=== PATIENT | male | born 1945 | race Caucasian/White ===

== ENCOUNTER 2019-11-18 15:05 | Inpatient (IN) | payer OTHER, SELFPAY ==
[~2019-11-18] VITALS: Ht 160 cm; Wt 70.3 kg
[2019-11-18 15:47] LABS: microscopic required? NO
[2019-11-18 16:14] LABS: BASOPHIL % 0.3 % (0-2); PLATELET COUNT 117 x10^3mcL (130-400); RED CELL DISTRIBUTION WIDTH 13.7 % (11.5-14.5)
[2019-11-18 16:20] LABS: UA SPECIFIC GRAVITY <=1.005 (1.005-1.035); urine erythrocyte NEGATIVE (NEGATIVE)
[2019-11-18 16:33] LABS: CALCIUM 7.6 mg/dL (8.5-10.1); CARBON DIOXIDE 23.3 mmol/L (21-32); CHLORIDE SERUM 100 mmol/L (98-107); CREATININE SERUM 0.9 mg/dL (0.7-1.3); GLUCOSE SERUM 154 mg/dL (74-106); POTASSIUM SERUM 3.8 mmol/L (3.5-5.1); SODIUM SERUM 136 mmol/L (136-145)
[2019-11-18 16:38] LABS: ALKALINE PHOSPHATASE 55 U/L (46-116); ALT/SGPT 38 U/L (16-63); AST/SGOT 56 U/L (15-37); BILIRUBIN TOTAL 0.5 mg/dL (0.20-1.00); C REACTIVE PROTEIN 6.8 mg/dL (<=0.9); LACTIC DEHYDROGENASE (LDH) 282 U/L (100-190); TOTAL PROTEIN, SERUM 6.5 g/dL (6.4-8.2)
[2019-11-18] MEDS ORDERED: ATORVASTATIN CA40 M1 PO (17:36)
[2019-11-18] MEDS ORDERED: ASPIRIN CHILDRE81 MG PO (17:36)
--- NOTE | 2019-11-18 17:37 | NUR ---
PT BIB [facility] C/O SOB X 2DAYS THAT HAS WORSEND TODAY. PT STATES BREATHING BECOMES DIFFICULTY WITH ACTIVITY. AAOX4, RESP E/U. DENIES ANY N/V/D OR ANY OTEHR INJURY AT THIS TIME.
--- NOTE | 2019-11-18 17:41 | NUR ---
REPORT GIVEN TO TREE SERRATO TO ASSUME CARE.
--- NOTE | 2019-11-18 17:55 | NUR ---
RECEIVED PT FROM ED VIA [facility], CAME IN DUE TO SOB X3 DAYS. PT IS AAOX4. DENIES HEADACHE/DIZZINESS. ABLE TO FOLLOW COMMANDS. STATED THAT HE HAS MILD SOB, W/ PRODUCTIVE COUGH X3 DAYS BUT WAS NOT SURE FOR THE COLOR OF THE PHLEGM, LUNG SOUNDS DIMINISHED ON THE BASES. O2 BWV=914% ON 2LPM/NC. DENIES CHEST PAIN/RPESSURE,SR W/ MILD ST ELEVATION. DENIES ABDOMINAL DISCOMFORT. PULSES ARE PALPABLE. NO EDEMA. IV SITES ON THE RAC AND LAC ARE PATENT AND INTACT. RECEIVED PT FROM ED, PT WAS WEARING A MASK, PLACED ON DROPLET/CONTACT ISOLATION ON ARRIVAL, AND ZITHROMAX INFUSING. SIDE RAILS UPX2. CALL LIGHT ON REACH. PRIMARY NURSE TREE AT BEDSIDE FOR CONTINUITY OF CARE
[2019-11-18 18:10] VITALS: BP 101/66
[2019-11-18 18:19] VITALS: BP 102/61
[2019-11-18 18:29] VITALS: Ht 160 cm; Wt 70.3 kg
--- NOTE | 2019-11-18 18:41 | NUR ---
NO ACUTE CHANGES AT THIS TIME, VS STABLE, BREATHING EVEN AND UNLABORED ON 2L NC/ NO ACUTE RESP DISTRESS OR SOB NOTED. DENIES ANY CP OR PRESSURE. WILL ENDORSE TO INCOMING RN.
--- NOTE | 2019-11-18 20:00 | NUR ---
PATIENT AWAKE, ALERT, ORIENTED X4, RESTING IN BED. RESPIRATION EVEN AND UNLABORED, OCCASIONAL COUGHING NOTED, ON O2 2L PER NASAL CANNULA. SALINE LOCK TO R ANTECUBITAL AND L ANTECUBITAL AREA. NO GI DISCOMFORT NOTED, LBM 11/18/19. VOIDING FREELY WITHOUT DIFFICULTY. MOVES ALL EXTREMITIES FREELY. SKIN DRY AND INTACT. DENIES DISCOMFORT/PAIN. ON DROPLET AND CONTACT PRECAUTION. SHACKLES ON THE R LEG. DEPUTY AT THE BEDSIDE. ON TELE #7. WILL CONTINUE TO MONITOR.
[2019-11-18 21:41] VITALS: BP 117/60
[2019-11-19 06:00] VITALS: BP 110/80
--- NOTE | 2019-11-19 06:09 | NUR ---
PATIENT RESTING IN BED, RESPIRATION EVEN AND UNLABORED, ON ROOM AIR. SALINE LOCK TO R ANTECUBITAL AREA AND L ANTECUBITAL AREA PATENT AND INTACT. DENIES DISCOMFORT/PAIN. ON DROPLET AND CONTACT ISOLATION. ASSISTED WITH NEEDS. SAFETY OBSERVED. PLACED BED IN THE LOWEST POSITION.
[2019-11-19 06:55] LABS: BASOPHIL % 0.6 % (0-2); RED CELL DISTRIBUTION WIDTH 14.4 % (11.5-14.5)
[2019-11-19 07:09] LABS: PLATELET COUNT 105 x10^3mcL (130-400)
[2019-11-19 07:18] LABS: CARBON DIOXIDE 29.8 mmol/L (21-32); CHLORIDE SERUM 104 mmol/L (98-107); CREATININE SERUM 0.9 mg/dL (0.7-1.3); GLUCOSE SERUM 105 mg/dL (74-106); SODIUM SERUM 137 mmol/L (136-145)
--- NOTE | 2019-11-19 08:08 | NUR ---
0715: REPORT TAKEN FROM ACCOUNT SERVICE ASSOCIATE NURSE, PATIENT FOUND TO BE AWAKE AND ALERT, ORIENTED X 4, GIVEN BREAKFAST AT THIS TIME AND VITALS ASSESSED, LUBNA REPORTS MILD SOB, AND TROUBLE TAKING DEEP BREATHS, ON 2 LITERS O2 VIA NC, WILL CONTINUE TO MONITOR.
[2019-11-19 08:12] VITALS: BP 111/70
[2019-11-19 11:50] VITALS: BP 117/68
--- NOTE | 2019-11-19 12:12 | NUR ---
PATIENT SIGNED CONSENT FOR PLASMA TRANSFUSION AND PAPERWORK ADDED TO CHART, I WITNESSED THE SIGNING OF THE CONSENT
--- NOTE | 2019-11-19 12:56 | NUR ---
PATIENT CHAINS MOVED FROM ANKLE TO BED, TO ANKLE TO ANKLE SO PATIENT MAY USE THE RESTROOM. PATIENT ABLE TO AMBULATE TO THE RESTROOM AND BACK TO BED, EATING LUNCH AT THIS TIME. PATIENT FOUND TO DESAT TO 86 ON ROOM AIR, STARTED BACK ON 2 LITERS NC AND SAT 98%, WILL CONTINUE TO MONITOR
[2019-11-19 16:50] VITALS: BP 116/68
[2019-11-19 21:00] VITALS: BP 108/67
--- NOTE | 2019-11-19 21:00 | NUR ---
PT IS RECIEVED FROM DAY NURSE. PT RESTING IN BED AT THIS TIME. REPORTED HEADACHE PAIN WILL ADMINISTER PRN PAIN MED. A/O X4, CALM AND COOPERATIVE AT THIS TIME. TELE 7, BRADYCARDIC, PT DENIES CP AND PALPITATIONS. PT DENIES SOB, BREATHING E/U ON 2L NC. CUFFS ON BOTH FEET SKIN UNDER CUFFS ARE CLEAN AND INTACT. PT ABLE TO AMBULATE AND REPOSITION SELF. IV TO RIGHT/LEFT AC PATENT, CLEAN, DRY, INTACT. PT ON CONTACT/DROPLET ISOLATION FOR POSITIVE COVID. BED AT LOWEST POSITION. CALL LIGHT WITHIN REACH. WILL CONTINUE TO MONITOR.
--- NOTE | 2019-11-19 22:04 | NUR ---
PT TRANSFERRED FROM [address] [place] [address], ENDORSED BY VELMA SERRATO. PT IS RESTING IN BED. PT IS ALERT, EYES OPEN SPONTANEOUSLY, UNABLE TO FOLLOW COMMAND. MEDSURG. NO IV ACCESS WILL ATTMEMPT TO START NEW IV. DENIES PAIN OR DISCOMFORT. PAPABLE PULSES, NO EDEMA NOTED. ABD SOFT AND ROUND. GENERALIZED WEAKNESS. LUNGS SOUNDS DIMINISHED BILATERALLY. NORMAL S1 AND S2 SOUNDS. PT NEEDS ASSISTANCE TO RESPOSITION SELF. SIITER 1:1 PRESENT. PT HAS ECHYMOSIS ON BUE AND A WOUND ON THE R LE. BED AT LOWEST POSITION. CALL LIGHT WITHIN REACH WILL CONTINUE TO MONITOR.
--- NOTE | 2019-11-20 00:05 | NUR ---
PT RESTING IN BED AT THIS TIME. DENIES PAIN AND DISCOMFORT, BREATHING E/U ON RMA, NO S/S OF DISTRESS AT THIS TIME. ALL NEEDS AND CONCERNS ADDRESSED AT THIS TIME. CALL LIGHT WITHIN REACH.
[2019-11-20 06:46] LABS: BASOPHIL % 0.5 % (0-2); RED CELL DISTRIBUTION WIDTH 14.3 % (11.5-14.5)
[2019-11-20 06:56] VITALS: BP 104/65
[2019-11-20 06:59] LABS: PLATELET COUNT 99 x10^3mcL (130-400)
--- NOTE | 2019-11-20 07:03 | NUR ---
PT RESTIN IN BED AT THIS TIME. DENIES PAIN AND DISCOMFORT, BREATHING E/U ON RMA, NO S/S OF ACUTE DISTRESS AT THIS TIME. ALL NEEDS AND CONCERNS ADDRESSED THIS SHIFT. CALL LIGHT WITHIN REACH. WILL ENDORSE TO DAY NURSE.
[2019-11-20 07:05] LABS: CALCIUM 8.6 mg/dL (8.5-10.1); CARBON DIOXIDE 27.8 mmol/L (21-32); CHLORIDE SERUM 101 mmol/L (98-107); CREATININE SERUM 0.8 mg/dL (0.7-1.3); GLUCOSE SERUM 118 mg/dL (74-106); POTASSIUM SERUM 3.5 mmol/L (3.5-5.1); SODIUM SERUM 135 mmol/L (136-145)
[2019-11-20 07:45] VITALS: BP 128/74
--- NOTE | 2019-11-20 07:45 | NUR ---
PATIENT C/O GENERALIZED BODY ACHES, ADMINISTERED PRN TYLENOL 625MG PER ORDER IN EMAR
--- NOTE | 2019-11-20 07:45 | NUR ---
RECEIVED PATIENT FROM NIGHT NURSE, ALERT AND ORIENTED X 4, C/O PAIN /10 'ALL OVER", LUNG SOUNDS CLEAR ON LPM O2 VIA NC, SALINE LOCK IN PLACE TO R AND L AC IN TACT, PATIENT CAN AMBULATE INDEPENDENTLY, BOWEL SOUNDS ACTIVE, TELEMTRY LEADS IN PLACE, DENIES CHEST PAIN, SINUS AUGUSTUS 50 BPM, SKIN INTACT, CONTINENT OF BOWEL AND BLADDER, PEDAL PULSES EQUAL AND WEAK, NO EDEMA NOTED, PATIENT PLEASANT AND COOPERATIVE
[2019-11-20 07:53] LABS: ALKALINE PHOSPHATASE 67 U/L (46-116); ALT/SGPT 44 U/L (16-63); AST/SGOT 54 U/L (15-37); BILIRUBIN TOTAL 0.45 mg/dL (0.20-1.00); C REACTIVE PROTEIN 6.4 mg/dL (<=0.9); CALCIUM 8.6 mg/dL (8.5-10.1); CARBON DIOXIDE 25.4 mmol/L (21-32); CHLORIDE SERUM 101 mmol/L (98-107); CREATININE SERUM 0.8 mg/dL (0.7-1.3); GLUCOSE SERUM 115 mg/dL (74-106); POTASSIUM SERUM 3.6 mmol/L (3.5-5.1); SODIUM SERUM 136 mmol/L (136-145); TOTAL PROTEIN, SERUM 6.3 g/dL (6.4-8.2)
[2019-11-20 08:23] LABS: ALBUMIN 2.7 g/dL (3.4-5.0)
[2019-11-20 12:30] VITALS: BP 109/68
--- NOTE | 2019-11-20 17:30 | NUR ---
PATIENT TEMP 101.0 C/O HEADACHE 11/29, INITIATED COOLING MEASURES AND ADMINISTERED PRN TYLENOL, WILL MONITOR PATIENT
--- NOTE | 2019-11-20 18:11 | NUR ---
PATIENT RESTING COMFORTABLY IN BED, NO COMPLAINT OF DISTRESS OR DISCOMFORT AT THIS TIME, WILL ENDORSE CARE TO PM NURSE
[2019-11-20 18:13] VITALS: BP 110/78
[2019-11-20 21:50] VITALS: BP 107/64
--- NOTE | 2019-11-20 21:50 | NUR ---
PT IS A/O x4. TELE #7, SB HR IN LOW 50S. DENIES ANY CHEST PAIN OR PRESSURE. PT C/O SAINI, TYLENOL GIVEN PER EMAR. PULSES ARE PRSENT. NO EDEMA NOTED. LUNGS CLEAR IN ALL FEILDS. ON 2L NC. DENIES ANY SOB AT THIS TIME. EQUAL CHEST RISE AND FALL. NO SIGN OF RESP DISTRESS. BOWEL SOUNDS ARE PRESENT x4. VOIDS FREELY. SKIN WARM AND INTACT. CUFF ON R ANKLE TO BED. PT IS CIM, GUARD PRESENT. SALINE LOCKED ON LAC AND RAC. INTACT AND CLEAN. BED IS AT LOWEST SETTING. CALL LIGHT WITHIN REACH. PT ON CONTACT/DROPLET ISO FOR COVID POSITIVE. WILL CONTINUE TO MONTIOR.
--- NOTE | 2019-11-21 02:06 | NUR ---
SPOKE WITH PT. PT DENIES ANY DISTRESS. DENIES ANY PAIN. CALL LIGHT WITHIN REACH. WILL CONTINUE TO MONTIOR.
[2019-11-21 06:39] VITALS: BP 111/65
--- NOTE | 2019-11-21 06:40 | NUR ---
PT WAS HAVING A COUGHING SPELL. SPO2 DOWN TO 76% ON 2L NC. PT WAS SAT UP IN HIGH FOLWERS AND O2 WAS INCREASED TO 5L NC. PT DENIES ANY SOB. STATES HE FEELS OK. RT WAS CALLED FOR A TREATMENT. WHILE WAITING FOR RT PT SPO2 INCREASED TO 85% ON RA. TREATMENT WAS GIVEN AND PT ON 4L NC SPO2 AT 90%. LEFT SITTING UP. PT DENIES ANY SOB. STATES HE IS FEELING FINE. NO SIGN OF RESP DISTRESS NOTED. PT STILL COUGHING. RT STATES PT IS STABLE AT THIS TIME. SPO2 DROPS PER COUGHING. PT IN NO DISTRESS. BED AT LOWEST SETTING. CALL LIGHT WITHINR REACH. WILL ENDORSE TO AM NURSE.
--- NOTE | 2019-11-21 07:20 | NUR ---
RECEIVED PT SITTING UP IN BED AAOX4, ABLE TO FOLLOW SIMPLE COMMANDS. IN NO ACUTE DISTRESS. DENIES PAIN OR DISCOMFORT AT THIS TIME. IV SITE TO LEFT AND RIGHT AC INTACT SALINE LOCK. 94% 02SAT AT 4LPM. SCD IN PLACE. BED IN LOWEST POSITION. CALL LIGHT WITHIN REACH. ADRESSED ALL QUESTIONS. WILL CONTINUE TO MONITOR
[2019-11-21 10:00] VITALS: BP 115/62
--- NOTE | 2019-11-21 12:30 | NUR ---
PT IN BED, AWAKE, IN NO ACUTE DISTRESS. CIM STAFF PRESENT. C/O HEADACHE AND NOTED WITH 99.9 TEMEPERATURE ORALLY. MEDICATED WITH TYLENOL ORDERED. ON 4LPM OXYGEN VIA NC 94% SAT. EPISODES OF DESATURATION TO 80-84% DURING MEALS, INSTRUCTED TO TAKE FREQUENT BREAKS IN BETWEEN. NO S/S OF RESPIRATORY DISTRESS. ALL NEEDS ATTENDED TO. CALL LIGHT WITHIN REACH. WILL CONTINUE TO MONITOR. ON CONTACT/DROPLET ISOLATION FOR POSITIVE COVID-19
[2019-11-21 18:06] VITALS: BP 95/56
--- NOTE | 2019-11-21 20:00 | NUR ---
RECEIVED PT IN BED, RESTING , A/O X4. DENIES HEADACHE/DIZZINESS. RESP. EVEN AND UNLABORED, 02 AT 4L/MIN VIA NC, SAT. 92% AT THIS TIME, DESATS AT TIMES . ON RT PROTOCOL. DENIES SOB. SB ON THE MONITOR. DENIES CP OR ANY DISCOMFORT AT THIS TIME. HL X2, INTACT AND PATENT. INSTRUCTED TO MAINTAIN PRONE POSITION WHEN RESTING. CALL LIGHT WITHIN REACH. WILL CONTINUE TO MONITOR.
--- NOTE | 2019-11-21 20:37 | NUR ---
GUARDS PRESENT. REMAINS ON DROPLET/CONTACT ISOLATION.WILL CONTINUE TO MONITOR.
[2019-11-21 21:01] VITALS: BP 123/70
--- NOTE | 2019-11-22 02:24 | NUR ---
DESAT. TO 65% ON 02 AT 4L/MIN VIA NC, RESP. TREATMENT GIVEN BY RT, 02 INCREASED TO 6L/MIN, SAT. 94% AT THIS TIME. INSTRUCTED TO MAINTAIN PRONE POSITION. WILL COONTINUE TO MONITOR.
[2019-11-22 05:54] VITALS: BP 112/70
--- NOTE | 2019-11-22 06:09 | NUR ---
SLEPT WELL. OCCA. NON PRODUCTIVE COUGH NOTED. [address], DENIES SOB AT THIS TIME. RESP. EVEN AND UNLABORED. NO ACUTE DISTRESS NOTED. TEMP. 99.6 AT THIS TIME. NO COMPLAINTS NOTED. WILL CONTINUE TO MONITOR.
[2019-11-22 07:28] LABS: BASOPHIL % 0.1 % (0-2); PLATELET COUNT 157 x10^3mcL (130-400)
--- NOTE | 2019-11-22 07:30 | NUR ---
PT ENDORSE TO ME THIS MORNING, LAYING IN BED RESTING/ AA/O X4, REMAINS ON ISOLATION. BREATHING EVEN AND UNLABORED ON 6L NC SATING AT 93% NO ACUTE RESP DISTRESS OR SOB NOTED. TELE 7 SB, HR 55 /DENIES ANY CP OR PRESSURE. BOWEL SOUNDS ACTIVE IN ALL FOUR QUADS/ VOIDS FREELY. GEN WEAKNESS/AMB CIM PT/ RAC INTACT AND PATENT/ HEPLOCKED. CALL LIGHT IN REACH /BED IN LOW POSITION / WILL CONTINUE TO MONITOR.
[2019-11-22 07:56] LABS: CARBON DIOXIDE 32.1 mmol/L (21-32); CHLORIDE SERUM 100 mmol/L (98-107); GLUCOSE SERUM 132 mg/dL (74-106); POTASSIUM SERUM 4.3 mmol/L (3.5-5.1); SODIUM SERUM 138 mmol/L (136-145)
--- NOTE | 2019-11-22 09:20 | NUR ---
PT C/O CHEST PRESSURE AND BACK PAIN 5/10, MEDICATED PER EMAR. WILL CONTINUE TO MONITOR.
[2019-11-22 09:21] VITALS: BP 105/82
--- NOTE | 2019-11-22 12:47 | NUR ---
CALLED PHARMACY AND SPOKE TO PRAKASH REGRADING REMDESIVIR 200MG/ STATED THEY ARE OUT OF MEDICATION AND HAS NOT BEEN FDA APPROVED. PER PRAKASH YAN.
[2019-11-22 13:01] VITALS: BP 104/67
--- NOTE | 2019-11-22 16:34 | NUR ---
PT TOLERATED 100% OF LUNCH/ DENIES ANY CP OR PRESSURE OR SOB= SATING AT 93-94% WILL CONTINUE TO MONITOR.
--- NOTE | 2019-11-22 18:15 | NUR ---
RECEIVED CALL FROM AMA SHERIDAN STATING PT IS DESATURATING. PT'S SPO2:81% SO PLACED PT ON 12 OXYMIZER. SPO2:91%, RR:26. ADVISED PT TO TAKE DEEP BREATHS. SPO2:92%. PT STATES RELIEF. WILL ENDORSE CARE TO NOC SHIFT.
[2019-11-22 18:17] VITALS: BP 121/64
--- NOTE | 2019-11-22 18:18 | NUR ---
VS 121/64 RESP 26, HR 62 PT SATING AT 83 % ON NC 6L = CALLED RT AND CHANGED PT TO OXYMIZER 12L SATING BETWEEN 90-92% WILL CONTINUE TO MONITOR.
--- NOTE | 2019-11-22 18:27 | NUR ---
NO ACUTE CHANGES AT THIS TIME, NO ACUTE RESP DISTRESS OR SOB NOTED/ REMIANS ON 12L OXYMIZER SATING AT 91-92%. DENIES ANY CP OR PRESSURE. CIM OFFICERS BY DOOR. IV TO THE RAC INTACT AND PATENT/ HEPLOCKED. WILL ENDORSE TO INCOMING RN.
--- NOTE | 2019-11-22 19:24 | NUR ---
RECEIVED PT FROM PREVIOUS SHIFT. GUARDS PRESENT. PT A/OX4. NSR ON TELE. O2 SAT 92% ON 12L OXYMIZER. DENIES PAIN. DENIES SOB. IV TO RAC PATENT. CALL LIGHT WITHIN REACH, BED IN LOW POSITION. WILL CONTINUE TO MONITOR.
--- NOTE | 2019-11-23 00:15 | NUR ---
PT RESTING IN NO ACUTE DISTRESS. RR ALONZO/UNLABORED. CALL LIGHT WITHIN REACH, BED IN LOW POSITION. WILL CONTINUE TO MONITOR.
--- NOTE | 2019-11-23 01:01 | NUR ---
PATIENT DESAT TO 85% ON 12 L/M OXYMIZER. GAVE 2 PUFFS PRN ALB MDI AND PLACED ON NONREBREATHER, SPO2 INCREASED TO 92%
[2019-11-23 05:16] VITALS: BP 111/81
--- NOTE | 2019-11-23 07:27 | NUR ---
PT ENDORSE TO ME THIS MORNING AA/OX4/ REMAINS ON ISOLATION. BREATHING EVEN AND UNLABORED ON NRB 15L DENIES SOB OR CP. TELE 7 SB NOTED. BOWEL SOUNDS ACTIVE IN ALL FOUR QUADS. VOIDS FREELY/ URINAL AT BEDSIDE,AMB. IV TO THE RAC INTACT AND PATENT / NO REDNESS OR SWELLING NOTED. WILL CONTINUE TO MONITOR. CIM PATIENT.
[2019-11-23 09:32] VITALS: BP 115/69
--- NOTE | 2019-11-23 11:15 | NUR ---
PT ON 12L OXYMIZER AND IN PRONED POSITION. TOLERATING WELL AND STATES RELIEF. SPO2:92%. WILL CONT.TO MONITOR
--- NOTE | 2019-11-23 12:33 | NUR ---
PT REMAINS ON OXYMIZER AT 12 L SATING AT 95% IN A PRONE POSITION. WILL CONTINUE TO MONITOR.
[2019-11-23 13:16] VITALS: BP 103/62
[2019-11-23 15:04] VITALS: BP 103/62
[2019-11-23 17:40] VITALS: BP 106/64
--- NOTE | 2019-11-23 17:57 | NUR ---
NO ACUTE RESP DISTRESS OR SOB NOTED/ REMAINS ON OXYMIZER 12L SATING AT 91-96 IN PRONE POSITION. DENIES ANY CP OR PRESSURE OR DISCOMFORT. IV TO THE RAC INTACT AND PATENT/ HEPLOCKED / NO REDNESS OR SWELLING NOTED. WILL ENDORSE TO INCOMING RN.
--- NOTE | 2019-11-23 19:58 | NUR ---
RECEIVED PT FROM PREVIOUS SHIFT. PT A/OX4. DENIES PAIN. DENIES SOB ON 12L OXYMIZER. PT LAYING PRONE IN BED. IV PATENT. CALL LIGHT WITHIN REACH. GUARDS PRESENT OUTSIDE OF ROOM. CALL LIGHT WITHIN REACH, BED IN LOW POSITION. WILL CONTINUE TO MONITOR.
--- NOTE | 2019-11-23 23:01 | NUR ---
O2 SAT IN LOW 70'S. PT DENIES SOB. PT REPOSITIONED AND GIVEN BREATHING TREATMENT VIA MDI BY RT. O2 SAT INCREASED TO 90%. WILL CONTINUE TO MONITOR.
--- NOTE | 2019-11-24 01:05 | NUR ---
PT C/O 01/29 SAINI. TYLENOL PROVIDED PER EMAR
--- NOTE | 2019-11-24 03:42 | NUR ---
PT RESTING IN NO ACUTE DISTRESS. RR EVEN AND UNLABORED. CALL LIGHT WITHIN REACH, BED IN LOW POSITION. WILL CONTINUE TO MONITOR.
[2019-11-24 05:51] VITALS: BP 105/63
[2019-11-24 07:07] LABS: BASOPHIL % 0.1 % (0-2); PLATELET COUNT 199 x10^3mcL (130-400); RED CELL DISTRIBUTION WIDTH 13.7 % (11.5-14.5)
[2019-11-24 07:30] LABS: CALCIUM 8.8 mg/dL (8.5-10.1); CHLORIDE SERUM 98 mmol/L (98-107); CREATININE SERUM 0.9 mg/dL (0.7-1.3); GLUCOSE SERUM 127 mg/dL (74-106); SODIUM SERUM 135 mmol/L (136-145)
[2019-11-24 07:38] LABS: C REACTIVE PROTEIN 5.6 mg/dL (<=0.9)
[2019-11-24 08:15] VITALS: BP 102/64
--- NOTE | 2019-11-24 10:05 | NUR ---
AT 0710 - RECEIVED PATIENT FROM NIGHT NURSE. PATIENT IN ISOLATION ROOM FOR COVID-19. MONITOR SHOWING SINUS RHYTHM; RATE 60'S. O2 SAT 92%. 2 CORRECTIONAL OFFICERS OUTSIDE OF PATIENT'S ROOM. AT 0810 - PATIENT AWAKE, ALERT AND ORIENTED X 4. HAS BEEN IN PRONE POSITION, NOW SELF-POSITIONED ON LEFT SIDE. PATIENT IS ON 12 L OXYMIZER. TECHYPNIC WITH RR 36. DESATS QUICKLY TO LOW 80'S WHEN NOT IN PRONE POSITION, HOWEVER O2 SAT RETURNS QUICKLY TO 90% UPON CHANGE OF POSITION TO PRONE. BP WNL. AFEBRILE. AT 0837 - MEDICATED WITH TYLANOL FOR C/O HEADACHE. PATIENT ASSISTED WITH BREAKFAST. WAS ABLE TO TAKE 40% OF FOOD FROM BREAKFAST TRAY. AGAIN POSTIONED IN PRONE POSITION. AT 0935 - PATIENT'S O2 SAT DROPPED TO 71% DURING PATIENT'S USE OF URINAL TO VOID. RETURNED QUICKLY TO 90% WITHIN 2 MIN OF PATIENT BEING IN PRONE POSITION. MADE COMFORTABLE.
[2019-11-24 12:39] VITALS: BP 94/65
--- NOTE | 2019-11-24 13:19 | NUR ---
AT 1235 - PATIENT SITTING UP INB ED; SAYS THAT HE HAS BEEN IN THAT POSITION FOR LAST 30 MIN. O2 SAT 90% AT 1255 - WHILE EATING LUNCH; O2 SAT DROPPED TO 84%. PATIENT INSTRUCTED TO RETURN TO PRONE POSITION. O2 SAT RETURNED TO 90'S AT 1315 - O2 SAT MAINTAINED AT 96%
[2019-11-24 15:15] VITALS: BP 105/68
--- NOTE | 2019-11-24 15:16 | NUR ---
1. Recommend continue NA2G diet
--- NOTE | 2019-11-24 15:16 | NUR ---
Initial Nutrition Assessment: 232T/B DIONNE SHERMAN 74M MR SHYAM Dx: PNA, COVID r/o PMHx: Afib, HTN PSHx: none Labs: (11/23) Na 135L, Glu 127H, (11/19) AST 54H Meds: Lovenox, Pepcid PRN meds: Phenergan, Tylenol, ventolin Diet: NA2G PO intake since admission: 2 nutrition flowsheet entry of 100% with average PO intake of 100%. (Approximately 2288kcal, and 112g protein). Ht: 160.02cm/63in Wt: 70.335kg/154.7lbs BMI: 27.5 Bed scale: not able to obtain IBW: 56.36kg/124lbs %IBW: 125% ABW: 60kg UBW: not able to obtain Age: 74 Food Allergies: not able to obtain Edema: no edema noted Last BM: 11/22 Skin: intact Yosi: 18 Per H and P (11/17), Pt is a 74 y/o male with h/o HTN, Arrhythmia [facility] resident with a possible exposure to COVID 19 presented to the ED with cough, SOB, and fever for last 2 days. He was seen at the ED was having fever and in aflutter then resolved. Multiple work ups done, he was hypoxic and was admitted to tele. Pt was admitted with dx: Hypoxia, Respiratory failure, PNA, COVID 19, Aflutter, HTN RD Note (11/23) Per RN reassessment note (11/23), pt was able to eat small amounts of food. RD tried to reach pt via his phone, but pt did not respond. Per pt's RN, pt had good appetite, but it was challenging for pt to eat because pt's oxygen level decreased whenever he sat up and eat, so pt needed to eat very quickly. Otherwise pt had good appetite with no GI distress and chewing/swallowing difficulties. Additionally, RN also reported no BM today. Problem with: N/V/D/C: none per RN Problems with: Chewing: Swallowing: None per RN Current appetite: good per RN, but needed to eat quickly Recent wt change: not able to obtain %wt change: not able to obtain Height: not able to obtain Vitamin/Supplement use: not able to obtain Special diet at home: not able to obtain Physical activity: not able to obtain Nutrition education given (specify specific nutrition education and handout given): n/a Food-drug interactions? Education given? n/a Estimated Nutritional Needs Based on adjusted body weight (60kg) Energy: 0133-9249 kcal/day (30-35 kcal/kg for viral infection) Protein: 90-120 g/day (1.5-2 g/kg for viral infection) Fluid: 0458-3084 mL/day (1 mL/kcal) or per MD d/t Pulmonary edema Nutrition Diagnosis: 1. Increased energy and protein needs r/t hypermetabolic state a/e/b pt has viral infection. Intervention 1. Recommend continue NA2G diet Monitor/Evaluate Goal: PO intake at least 75% of estimated needs Monitor: PO intake, Labs, GI function, Body weight, Diet tolerance F/U in 3-5 days as moderate risk 11/26-
--- NOTE | 2019-11-24 15:40 | NUR ---
TEMP 103.0 GIVEN TYLANOL PER EMAR. COOLING MEASURES INCLUDING ICE PACKS TO AXILLAE IMPLEMENTED. DR LION NOTIFIED. HE WILL BE IN TO SEE PATIENT. PATIENT IS IN PRONE POSITION. O2 SAT 88-91%
--- NOTE | 2019-11-24 17:04 | NUR ---
CALLED RT TO REVIEW PATIENT O2 SAT 82-86%. PATIENT WAS LYING ON HIS SIDE. ENCOURAGED TO LIE PRONE AGAIN. RT WILL GIVEN PATIENT INHALER TREATMENT AND CONSIDER MASK.
[2019-11-24 17:50] VITALS: BP 108/68
--- NOTE | 2019-11-24 18:41 | NUR ---
AT 1740 - AFTER RECEIVING INHALER TREATMENT AND LYING PRONE, PATIENT'S O2 SAT CAME UP TO 95%. REMAINS TECHYPNIC BUT DENIES ANY SHORTNESS OF BREATH. REMAINS ON OXYMIZER AT 12 L/MIN. PATIENT SAT UP IN BED FOR DINNER. APPETITE APPEARS [facility]. PATIENT'S O2 SAT DROPS TO 86% WHEN SITTING UP IN BED. PATIENT ENCOURAGED TO PRONE AFTER EATING. C/O HEADACHE. LAST TEMP READING 99.3. NOT YET DUE FOR TYLANOL. AT 1845 - O2 SAT NOW 94%. PATIENT AWAKE, ALERT AND ORIENTED. VOIDING IN URINAL. WILL ENDORSE CARE TO NIGHT NURSE.
[2019-11-24 19:30] VITALS: BP 94/73
--- NOTE | 2019-11-24 19:30 | NUR ---
PT RECIEVED FROM DAY NURSE. PT RESTING IN BED AT THIS TIME. R LEG SHACKLED TO BED AT THIS TIME. PT A/O X4, CALM AND COOPERATIVE. TELE 7, SINUS AUGUSTUS. DENIES CP, NV, DIZZINESS, AND PALPATATIONS. PALPABLE PULSES, NO EDEMA NOTED AT THIS TIME. NO WEAKNESS NOTED. PT EDUCATED TO PRONE POSITION MUCH POSSIBLE. PT BREATHING EVEN AND LABORED. ON 12 L OXYMIZER. SPO2 93%. DENIES SOB AT THIS TIME. ABD SOFT AND ROUND, DENIES PAIN TO PALPATION. IV TO RAC. CDI. BED AT LOWEST POSITION. CALL LIGHT WITHIN REACH. WILL CONTINUE TO MONITOR. TEMP 101.3 AT THIS TIME. MEDICATED WITH PRN TYLENOL. WILL CONTINUE TO MONITOR.
--- NOTE | 2019-11-25 | NUR ---
PT RESTING IN BED AT THIS TIME. DENIES PAIN OR DISCOMFORT. PT BREATHING EVEN AND LABORED ON 12 L NC. DENIES SOB. NO S/S OF ACUTE DISTRESS NOTED AT THIS TIME. BED AT LOWEST POSITION. CALL LIGHT WITHIN REACH. WILL CONTINUE TO MONITOR.
[2019-11-25 06:38] LABS: PLATELET COUNT 230 x10^3mcL (130-400); RED CELL DISTRIBUTION WIDTH 13.8 % (11.5-14.5)
[2019-11-25 06:42] VITALS: BP 93/57
--- NOTE | 2019-11-25 06:45 | NUR ---
PT RESTING IN BED AT THIS TIME. DENIES PAIN OR DISCOMFORT. PT BREATHING EVEN AND LABORED ON 12 L OXYMIZER AT THIS TIME. DENIES SOB. NO S/S OF ACUTE DISTRESS NOTED AT THIS TIME. BED AT LOWEST POSITION. CALL LIGHT WITHIN REACH. WILL ENDORSE TO DAY NURSE.
[2019-11-25 06:52] LABS: BASOPHIL % 0 % (0-2)
[2019-11-25 07:02] LABS: CALCIUM 8.7 mg/dL (8.5-10.1); CARBON DIOXIDE 29.3 mmol/L (21-32); CHLORIDE SERUM 100 mmol/L (98-107); GLUCOSE SERUM 177 mg/dL (74-106); POTASSIUM SERUM 4.3 mmol/L (3.5-5.1); SODIUM SERUM 138 mmol/L (136-145)
[2019-11-25 07:35] VITALS: BP 105/65
--- NOTE | 2019-11-25 07:57 | NUR ---
RECEIVED PATIENT FROM PARI MUTUEL CLERK NURSE. PATIENT IS A&OX4, FOLLOWS COMMANDS AND COOPERATES WELL. TELE #7, SINUS AUGUSTUS AT THIS TIME, DENIES CHEST PAIN. PERIPHERAL PULSES PALPABLE W/ NO SIGNS OF EDEMA. LUNG SOUNDS DIMINISHED BILATERALLY, 12L OXIMIZER, O2 SXAT 90%, DENIES SOB AT THIS TIME BUT DESATS WHEN MOVING AROUND IN BED OR USING THE URINAL. NORMOACTIVE BSX4, ABD SOFT AND FLAT. VOIDS USING URINAL. WAS FOUND IN THE PRONE POSITION SLEEPING. DENIES ANY HEADACHE OR FEVER AT THIS TIME. SKIN IS CDI. RAC IV SITE IS CDI. WILL CONTINUE TO MONITOR PATIENT.
--- NOTE | 2019-11-25 08:14 | NUR ---
PATIENT WILLINGLY TOOK HIS MEDICATIONS. ALL QUESTIONS AND CONCERNS HAVE BEEN ADDRESSED AT THIS TIME. PATIENT DID HAVE INCREASED WOB AND REMAINED 12L ON OXIMIZER, BUT PATIENT STATES THAT HE DID NOT HAVE ANY SOB. WILL CONTINUE TO MONITOR.
[2019-11-25 13:45] VITALS: BP 103/56
--- NOTE | 2019-11-25 15:20 | NUR ---
RECEIVED A CALL STATING THAT PATIENT'S O2 SAT WAS 75%. VISITED PATIENT AND FOUND THAT PULSE OX WAS LOOSE. APPLIED NEW PULSE OX AND PATIENT'S O2 SAT IS A STEADY 89-90% O2 ON 12 L OXIMIZER. WILL CONTINUE TO MONITOR.
[2019-11-25 17:47] VITALS: BP 99/59
--- NOTE | 2019-11-25 18:22 | NUR ---
PATIENT IS A&OX4, FOLLOWS COMMANDS AND COOPERATES WELL. PATIENT DE-SAT TO 70'S UPON MOVING IN BED BUT WENT UP TO 95%. PATIENT DENIES SOB. ALL QUESTIONS AND CONCERNS HAVE BEEN ADDRESSED AT THIS TIME. WILL CONTNIUE TO MONITOR.
--- NOTE | 2019-11-25 19:30 | NUR ---
Received pt. from day shift, currently resting in bed able to make needs known, able to follow commands, no c/o h/a at this time. Breathing even and unlabored, on 1L via NC, no s/o distress or discomfort at this time. Pt. IV site on RFA patent w/ fluids running at 40 cc/hr as ordered. Pt. noted to be asking for food, but pt. ordered CL diet at this time and is tolerating well. Educated pt. that she will be NPO at midnight for possible surgery tomorrow. Pt. to get dialysis tomorrow, consent signed as per day shift. Pt. at this time is resting, no c/o of pain, bed set at lowest position, will continue to monitor.
[2019-11-25 21:00] VITALS: BP 111/74
--- NOTE | 2019-11-26 05:14 | NUR ---
Pt. noted to desat to the 70's throughout the ngiht, able to bring up to >88% by askign pt. to deep breathe and lie prone. Pt. states he doesn't have SOB, or acute distress. Will continue to monitor and endorse to oncoming shift RN.
[2019-11-26 06:00] VITALS: BP 95/58
[2019-11-26 06:58] LABS: BASOPHIL % 0.1 % (0-2); PLATELET COUNT 290 x10^3mcL (130-400); RED CELL DISTRIBUTION WIDTH 14.3 % (11.5-14.5)
[2019-11-26 07:16] LABS: CALCIUM 9.1 mg/dL (8.5-10.1); CARBON DIOXIDE 30.3 mmol/L (21-32); CHLORIDE SERUM 101 mmol/L (98-107); GLUCOSE SERUM 176 mg/dL (74-106); POTASSIUM SERUM 4.5 mmol/L (3.5-5.1); SODIUM SERUM 138 mmol/L (136-145)
--- NOTE | 2019-11-26 07:45 | NUR ---
RECEIVED AWAKE, ALERT AND ORIENTED. ON O2 12L VIA OXYMIZER SATS 93%. NO SOB NOTED. NO ACUTE DISTRESS. VS WNL. HL PATENT. PT DENIES PAIN OR DISCOMFORT AT THIS TIME. CIM GUARDS AT THE DOOR. CALL LIGHT WITHIN REACH. WILL CONTINUE WITH PLAN OF CARE.
[2019-11-26 08:54] VITALS: BP 105/64
[2019-11-26 11:48] VITALS: BP 109/66
--- NOTE | 2019-11-26 12:16 | NUR ---
O2 SATS 89% ON 12L VIA OXYMIZER, PT IN NO ACUTE DISTRESS. PRONE POSITION ENCOURAGED AND TOLERATING WELL. WILL CONTINUE TO MONITOR.
[2019-11-26 13:56] VITALS: BP 109/66
[2019-11-26 18:09] VITALS: BP 106/62
--- NOTE | 2019-11-26 18:43 | NUR ---
PT REMAINS IN NO ACUTE DISTRESS. AWAKE AND ALERT. VS WNL. REMAINS ON O2 VIA OXYMIZER SATS 91%. MILD SOB NOTED WITH ACTIVITIES. HL PATENT. CIM GUARDS AT BEDSIDE. PT DENIES PAIN OR DISCOMFORT. CALL LIGHT WITHIN REACH. WILL BE ENDORSED TO INCOMING SHIFT.
--- NOTE | 2019-11-26 19:22 | NUR ---
RECIEVED PT FROM PREVIOUS SHIFT NURSE. PT RESTING IN BED, AOX4, SPEECH CLEAR, ABLE TO FOLLOW COMMANDS, DENIES SAINI,N/V, OR PAIN AT THE MOMENT, NO FACIAL DROOPING NOTED, CALM AND COOPERATIVE AT THE MOMENT. RR EVEN AND UNLABORED ON 12L OXYMIZER CONT PULSE OX:93%, DENIES SOB OR DIFFICUTLY BREATHING. TELE #9 NSR, DENIES CHEST PAIN OR PRESSURE. NO SIGNS OF ACUTE CHANGE OR DISTRESS NOTED. IV RAC WNL, NO ERYTHEMA, EDEMA, OR DRAINAGE NOTED. PT MAINTAINED ON DROPLET/CONTACT PRECAUTION FOR COVID-19 (+). PT ENCOURAGED TO USE BEDSIDE IS AND SELF PRONE POSITION. BED IN LOWEST POSITION AND CALL LIGHT WITHIN REACH. TWO CORRECTIONAL OFFICERS PRESENT. WILL CONTINUE TO MONITOR.
[2019-11-26 20:10] VITALS: BP 114/71
--- NOTE | 2019-11-27 01:20 | NUR ---
PT ENCOURAGED TO SELF PRONE DURING SLEEP.
--- NOTE | 2019-11-27 01:40 | NUR ---
PT RESTING IN BED, EASILY AROUSABLE. RR EVEN AND UNLABORED ON 12L OXYMIZER, CHEST RISING EQUALLY. TELE #7 SB, CONT PULSE OX:93%. PT MAINTAINED ON DROPLET/CONTACT ISOLATION FOR COVID-19(+). BED IN LOWEST POSITION AND CALL LIGHT WITHIN REACH. WILL CONTINUE TO MONIOTOR.
[2019-11-27 05:10] VITALS: BP 112/73
--- NOTE | 2019-11-27 06:14 | NUR ---
PT RESTING IN BED, AOX3, SPEECH CLEAR, ABLE TO FOLLOW COMMANDS, DENIES SAINI, N/V, OR PAIN AT THE MOMENT, NO FACIAL DROOPING NOTED. RR EVEN AND UNLABORED ON 12L OXYMIZIER, DENIES SOB OR DIFFICULTY BREATHIN, CHEST RISING EQUALLY. TELE #7 SB, CONT PULSE OX: 94%, DENIES CHEST PAIN OR PRESSURE. NO SIGNS OF ACUTE CHANGE OR DISTRESS NOTED AT THE MOMENT. IV RAC WNL, NO ERYTHEMA, EDEMA, OR DRAINAGE NOTED. PT ON DROPLET/CONTACT ISO FOR COVID-19(+). BED IN LOWEST POSITION AND CALL LIGHT WITHIN REACH. TWO CORRECTIONAL GUARDS AT BEDSIDE, WILL ENDORSE CARE TO ONCOMING SHIFT NURSE, WILL CONTINUE TO MONITOR.
[2019-11-27 06:42] LABS: PLATELET COUNT 315 x10^3mcL (130-400); RED CELL DISTRIBUTION WIDTH 14.1 % (11.5-14.5)
[2019-11-27 06:50] LABS: BASOPHIL % 0 % (0-2)
[2019-11-27 07:00] LABS: CALCIUM 8.9 mg/dL (8.5-10.1); CARBON DIOXIDE 29.4 mmol/L (21-32); CHLORIDE SERUM 104 mmol/L (98-107); CREATININE SERUM 0.8 mg/dL (0.7-1.3); GLUCOSE SERUM 181 mg/dL (74-106); POTASSIUM SERUM 4.1 mmol/L (3.5-5.1); SODIUM SERUM 141 mmol/L (136-145)
--- NOTE | 2019-11-27 07:30 | NUR ---
PT ENDORSE TO ME THIS MORNING, AA/O X4/ BREATHING EVEN AND UNLABORED ON 12L OXYMIZER SATING 93% CURRENTLY IN PRONE POSITION. TELE 7 SB NOTED HR 45-52 DENIES ANY CP OR DISCOMFORT. BOWEL SOUNDS ACTIVE IN ALL FOUR QUADS, LAST BM 5/6/ AMB/ VOIDS FREELY/ URINAL AT BE SIDE. IV TO THE RAC INTACT AND PATENT/ HEPLOCKED. CALL LIGHT IN REACH. BED IN LOW POSITION. WILL CONTINUE TO MONITOR.
[2019-11-27 09:15] VITALS: BP 119/79
[2019-11-27 10:12] LABS: ALBUMIN 2.2 g/dL (3.4-5.0); TOTAL PROTEIN, SERUM 6.2 g/dL (6.4-8.2)
[2019-11-27 10:13] LABS: BILIRUBIN DIRECT 0.2 mg/dL (0.0-0.2); BILIRUBIN TOTAL 0.4 mg/dL (0.20-1.00)
[2019-11-27 12:59] VITALS: BP 120/80
--- NOTE | 2019-11-27 14:25 | NUR ---
TOLERATED 100% OF LUNCH/ DENIES ANY CP OR PRESSURE CURRENTLY SATING AT 98% IN PRONE POSITION.
--- NOTE | 2019-11-27 16:04 | NUR ---
CHANGED BATTERY TO TELE 12 AND RETURNED OLD BATTERY CURRENT SAT RANGING FROM 88-91% CALLED PT ON PHONE TO STAY ON PRONE POSITION, PT AGREED.
[2019-11-27 17:32] VITALS: BP 110/72
--- NOTE | 2019-11-27 18:11 | NUR ---
NO ACUTE CHANGES AT THIS TIME, NO ACUTE RESP DISTRESS AT THIS TIME/ REMAINS ON OXYMIZER 12L SATING BETWEEN 88-92% NO ACUTE RESP DISTRESS OR SOB NOTED. TOLERATED 100% DINNER/ DENIES ANY CP OR PRESSURE. WILL ENDORSE TO INCOMING R.N.
[2019-11-27 19:43] VITALS: BP 121/80
--- NOTE | 2019-11-27 19:47 | NUR ---
RECIEVED PT FROM PREVIOUS SHIFT NURSE. PT RESTING IN BED, AOX4, HOB ELEVATED, SPEECH CLEAR, ABLE TO FOLLOW COMMANDS, DENIES SAINI, N/V, OR PAIN AT THE MOMENT, PT CALM AND COOPERATIVE. RR EVEN AND UNLABORED ON 12L OXYMIZER, CHEST RISING EQUALLY, DENIES SOB OR DIFFICULTY BREATHING. TELE #7 SB, CONT PULSE OX O2:90, DENIES CHEST PAIN OR PRESSURE. PT ENCOURAGED TO SELF PRONE. IV RAC WNL, NO ERYTHEMA, EDEMA, OR DRAINAGE NOTED, SALINE LOCKED. PT ON CONTACT/DROPLET PRECAUTION FOR COVID-19(+). BED IN LOWEST POSITION AND CALL LIGHT WITHIN REACH. TWO CORRECTIONAL OFFICERS PRESENT, WILL CONTINUE TO MONITOR.
--- NOTE | 2019-11-27 22:26 | NUR ---
PT O2 SATURATING AT 80-88%. RT NOTIFIED. PT SWITCHED FROM 12L OXYMIZER TO 13L NON-REBREATHER MASK AND INSTRUCTED TO SELF PRONE. TELE #7 SB, PULSE OX 02:95%. WILL CONTINUE TO MONITOR.
--- NOTE | 2019-11-28 02:22 | NUR ---
PT RESTING IN BED, EASILY AROUSABLE. RR EVEN AND UNLABORED ON 13L NON-REBREATHER. TELE #7 SB, CONT PULSE OX O2:93%. NO SIGNS OF ACUTE DISTRESS OR CHANGE NOTED. PT ON CONTACT/DROPLET ISOLATION FOR COVID-19 (+). PT ENCOURAGE TO PRONE WHILE SLEEPING. BED IN LOWEST POSITION AND CALL LIGHT WITHIN REACH. TWO CORRECTIONAL OFFICERS PRESENT. WILL CONTINUET TO MONITOR.
[2019-11-28 05:45] VITALS: BP 111/75
--- NOTE | 2019-11-28 05:47 | NUR ---
PT RESTING IN BED, IN PRONE POSITION, EASILY AROUSABLE, AOX4, ABLE TO FOLLOW COMMANDS, SPEECH CLEAR, DENIES SAINI, N/V, OR PAIN AT THE MOMENT, CALM AND COOPERATIVE, AND NO FACIAL DROOPING NOTED. RR EVEN AND UNLABORED ON 13L NON-REBREATHER, DENIES SOB OR DIFFICULTY BREATHING. TELE #7 SB, CONT PULSE OX O2:93%, DENIES CHEST PAIN OR PRESSURE. NO SIGNS OF ACUTE CHANGE OR DISTRESS NOTED. IV RAC WNL, NO ERYTHEMA, EDEMA, OR DRAINAGE NOTED. PT ON DROPLET/CONTACT ISOLATION FOR COVID-19 (+). BED IN LOWEST POSITION AND CALL LIGHT WITHIN REACH. TWO CORRECTIONAL OFFICERS PRESENT. WILL ENDORSE CARE TO ONCOMING SHIFT NURSE, AND WILL CONTINUE TO MONITOR.
--- NOTE | 2019-11-28 07:08 | NUR ---
AWAKE AND ALERT, SLEPT THROUGH MOST OF SHIFT. KEPT ON DROPLET AND CONTACT ISOLATION. DENIES HAVING PAIN OR NAUSEA. ENDORSED TO NURSE CERRATO
--- NOTE | 2019-11-28 08:02 | NUR ---
PATIENT IS A&OX4, FOLLOWS COMMANDS AND COOPERATES WELL. TELE #7, SINUS AUGUSTUS, DENIES CHEST PAIN. PERIPHERAL PULSES PALPABLE W/ NO SIGNS OF EDEMA. LUNG SOUNDS DIMINISHED BILATERALLY, ON NONREBREATHER MASK 15L OF O2, O2 SAT 90% WHILE PRONE, BUT DESATS WHEN MOVING AROUND IN BED. SMALL NON-PRODUCTIVE COUGH NOTED. NORMOACTIVE BSX4, ABD SOFT AND FLAT. VOIDS WELL WITH URINAL. GENERALIZED WEAKNESS, BUT IS ABLE TO INDEPENDENTLY POSITION HIMSELF PRONE. SKIN IS INTACT. DENIES ANY PAIN OR DISCOMFORT AT THIS TIME. IV SITE IS CDI. VSS. WILL CONTINUE TO MONITOR.
[2019-11-28 08:10] VITALS: BP 108/62
--- NOTE | 2019-11-28 10:07 | NUR ---
RFA IV HAS BEEN DC BY PATIENT. IV WAS CLEAN DRY AND INTACT. INSERTED NEW IV IN RAC. WILL CONTINUE TO MONITOR.
--- NOTE | 2019-11-28 11:22 | NUR ---
AT 1105 - DR LAW PER PHONE. CALLED BECAUSE OF PERSISTANT O2 SAT OF 79-85% NOT GOING UP DESPITE PATIENT'S PRONE POSITION. RT WAS WITH PATIENT AND REQUESTED FURTHER RECOMMENDATION FORM DOCTOR - ABG'S OR HIGH FLOW O2. DR LAW SPOKE WITH RT AND ORDERED THAT PATIENT BE PLACED ON HIGH FLOW O2. HE ALSO REVIEWED PATIENT'S MEDS. PATIENT IS ON APPROPRIATE TREATMENT PER DOCTOR. AT 1115 - PATIENT MOVED TO NEGATIVE PRESSURE ISOLATION ROOM. AT 1120 - PLACED ON HIGH FLOW BY RT.
[2019-11-28 11:25] LABS: PLATELET COUNT 388 x10^3mcL (130-400); RED CELL DISTRIBUTION WIDTH 14.3 % (11.5-14.5)
[2019-11-28 11:32] LABS: CALCIUM 9.1 mg/dL (8.5-10.1); CARBON DIOXIDE 31.7 mmol/L (21-32); CHLORIDE SERUM 101 mmol/L (98-107); GLUCOSE SERUM 135 mg/dL (74-106); POTASSIUM SERUM 4.3 mmol/L (3.5-5.1); SODIUM SERUM 140 mmol/L (136-145)
[2019-11-28 11:37] LABS: ALBUMIN 2.2 g/dL (3.4-5.0); ALKALINE PHOSPHATASE 161 U/L (46-116); ALT/SGPT 236 U/L (16-63); AST/SGOT 109 U/L (15-37); BILIRUBIN TOTAL 0.8 mg/dL (0.20-1.00)
[2019-11-28 11:55] LABS: BASOPHIL % 0 % (0-2)
[2019-11-28 13:08] VITALS: BP 110/68
--- NOTE | 2019-11-28 14:21 | NUR ---
Follow-up Nutrition Assessment: 230T/B LANEDIONNE 74M MR FU Dx: PNA, COVID r/o PMHx: Afib, HTN Labs: (11/26) glu 181H, BUN 27H, AST 198H, ALT 289H, Alk ph 156H Meds: Lovenox, Pepci, solu-medrol, Zosyn PRN meds: Phenergan, Tylenol, ventolin Diet: NA2G PO Intake: 40-90% x 3 meals with average PO intake of 70% since last visit. (1601kcal, 78g protein meeting 89% of estimated energy needs and 87% of estimated protein needs) Adequate. Weights: (11/27)70.335kg *no significant changes Edema: none noted Last BM: 11/25 Skin: skin intact Yosi: [address] note, RD tried to reach pt via his phone, but pt did not respond. Per pt's RN, pt had good appetite, but it was challenging for pt to eat because pt's oxygen level decreased whenever he sat up and eat, so pt needed to eat very quickly. Otherwise pt had good appetite with no GI distress and chewing/swallowing difficulties. Additionally, RN also reported no BM today. RD Note (11/27): Per pt's primary RN, pt's appetite was good and pt did not have SOB when eating. However, pt experienced oxygen desaturation when he sat up and eat. service counter cashier stated that it was not sustainable for pt, and RD recommended ensure so pt can also get additional kcal and protein during limited meal time. RN was agreeable. Estimated Nutritional Needs Based on adjusted body weight (60kg) Energy: 5739-5165 kcal/day (30-35 kcal/kg for viral infection) Protein: 90-120 g/day (1.5-2 g/kg for viral infection) Fluid: 5532-7130 mL/day (1 mL/kcal) or per MD d/t Pulmonary edema Nutrition Diagnosis: (ongoing) 1. Increased energy and protein needs r/t hypermetabolic state a/e/b pt has viral infection. Intervention: 1. Recommend continue NA2G diet 2. Recommend ensure BID for additional 700kcal and 40g protein. Monitor/Evaluate: Goal: Have pt meet at least 75% of estimated needs (met, ongoing goal) Monitor: PO intake, Labs, GI function, diet tolerance, body weight F/U in 7 days low risk 12/04
--- NOTE | 2019-11-28 14:21 | NUR ---
1. Recommend continue NA2G diet 2. Recommend ensure BID for additional 700kcal and 40g protein.
--- NOTE | 2019-11-28 14:54 | NUR ---
PATIENT IS A&OX4, FOLLOWS COMMANDS AND IS CURRENTLY EATING LUNCH AT THIS TIME. PATIENT IS HOLDING SATS AT 97%. DENIES CHEST OR SOB AT THIS TIME. ENCOURAGED PATIENT TO LIE PRONE AFTER EATING LUNCH TO MAINTAIN NORMAL OXYGEN SATURATIONS. WILL CONTINUE TO MONITOR.
--- NOTE | 2019-11-28 18:11 | NUR ---
PATIENT IS EATING DINNER AT THIS TIME W O2 SAT OF 88%. PATIENT DOES NOT APPEAR TO BE IN RESPIRATORY DISTRESS OR HAVE INCREASED WOB. PATIENT DENIES SOB AT THIS TIME WELL. PATIENT DENIES ANY DISCOMFORT OR PAIN AT THIS TIME. WILL CONTINUE TO MONITOR AND ENDORSE TO SKATING CARHOP NURSE.
[2019-11-28 18:56] VITALS: BP 98/57
--- NOTE | 2019-11-28 19:30 | NUR ---
PT SUSTAINED SP02:79-83%. ENCOURAGED PT TO BE IN THE PRONE POSITION AND TO TAKE DEEP BREATHES. PT DENIES SOB OR CHEST PAIN. RT NOTIFIED FOR BREATHING TREATMENT. PT WAS ON HIGH-FLOW 25 LPM, 70% FLOW RATE. RT TITRATED TO 30 LPM, 75% FLOW RATE. SP02: 98% POST TITRATION.
--- NOTE | 2019-11-28 20:00 | NUR ---
PT RECIEVED FROM DAY NURSE. PT IS RESTING IN BED. PT IS A/O X4, CALM AND COOPERATIVE. TELE 7, SINUS BRADYCARDIA, PT DENIES CP OR PALPITATIONS. PAPABLE PULSES, NO EDEMA. PT IS ON HI FLOW 30LPM, 75% FLOW RATE. NO SOB, BREATHING E/U. ACTIVE BOWEL SOUNDS, NO PAIN FROM PALPATIONS. GENERALIZED WEAKNESS. DENIES PAIN. IV TO THE RFA, CDI. WILL CONTINUE TO MONITOR.
[2019-11-28 20:30] VITALS: BP 110/63
--- NOTE | 2019-11-29 00:10 | NUR ---
PT RESTING IN BED AT THIS TIME. PT DENIES PAIN OR DISCOMFORT. PT IS BREATHING E/U, 30 LPM, 75% FLOW RATE. NO S/S OF ACUTE DISTRESS PRESENT AT THIS TIME. ALL NEEDS AND CONCERNS ADDRESSED. CALL LIGHT WITHIN REACH. WILL CONTINUE TO MONITOR.
[2019-11-29 05:30] VITALS: BP 107/69
--- NOTE | 2019-11-29 06:30 | NUR ---
PT IS RESTING IN BED AT THIS TIME. DENIES PAIN AND DISCOMFORT, BREATHING E/U, HIGH FLOW 30 LPM, 70% FI02. SPO2 93%. PT WILL DESATURATE TO THE LOW 70S BUT WILL RECOVER TO LOW 90S AFTER PRONE POSITIONING AND DEEP BREATHES. NO S/S OF ACUTE DISTRESS AT THIS TIME. DENIES SOB DURING THESE EPISODES. ALL NEEDS AND CONCERNS MET DURING SHIFT. WILL ENDORSE TO DAY NURSE.
[2019-11-29 07:40] LABS: PLATELET COUNT 358 x10^3mcL (130-400); RED CELL DISTRIBUTION WIDTH 14.3 % (11.5-14.5)
[2019-11-29 07:44] LABS: BASOPHIL % 0 % (0-2)
[2019-11-29 08:14] LABS: CALCIUM 8.9 mg/dL (8.5-10.1); CARBON DIOXIDE 30.4 mmol/L (21-32); CHLORIDE SERUM 101 mmol/L (98-107); CREATININE SERUM 0.8 mg/dL (0.7-1.3); GLUCOSE SERUM 187 mg/dL (74-106); POTASSIUM SERUM 4.6 mmol/L (3.5-5.1); SODIUM SERUM 138 mmol/L (136-145)
[2019-11-29 08:15] VITALS: BP 99/65
--- NOTE | 2019-11-29 08:25 | NUR ---
I HAVE REVIEWED THE DATA COLLECTION BY AMA HOLM: JOSEPH SAMPSON ENTERED ON: 11/27 1899- 11/28 I CONCUR WITH THE DATA AND ANY EXCEPTIONS OR COMMENTS ARE LISTED BELOW:
[2019-11-29 09:11] VITALS: BP 99/65
--- NOTE | 2019-11-29 10:06 | NUR ---
AT 0720 - RECEIVED PATIENT FROM NIGHT NURSE. PATIENT IS ISOLATION ROOM. MONITOR SHOWING SINUS RHYTHM; RATE 60'S. O2 SAT 95% WITH PATIENT IN PRONE POSITION AND ON FIO2 OF 75%. AT 0810 - PATIENT AWAKE, ALERT AND ORIENTED. SAT UP IN BED FOR BREAKFAST. O2 SAT DROPPED TO 86% WHILE EATING. PATIENT REPORTS GOOD APPETITE. NO LOSS OF TASTE. AT 0900 - PATIENT BACK IN PRONE POSITION. O2 SAT 90-95%. RR 32. PATIENT MADE COMFORTABLE.
[2019-11-29 12:20] VITALS: BP 105/65
[2019-11-29 17:50] VITALS: BP 102/68
--- NOTE | 2019-11-29 19:35 | NUR ---
AT 1230 - NOTED THAT RT HAS INCREASED PATIENT'S HIGH FLOW OXYGEN FIO2 TO 90% (35L). PATIENT TOLERATING IT WELL. O2 SAT 92-96% WITH PATIENT EITHER IN PRONE OR LEFT LATERAL POSIITON. SAT UP IN BED OFR LUNCH. O2 SAT 88-90% AT 1445 - O2 SATS APPEAR IMPROVED ON HIGHER FLOW OXYGEN. DESATING MUCH LESS EVEN WHEN SITTING UP. PATIENT HAS GOOD APPETITE AND IS EATING MOST OF FOOD ON MEAL TRAYS. AT 1730 - VSS. REMAINS AFEBRILE. AT 1920 - PATIENT WATCHING TV. O2 SAT 93-95% EVEN WHEN PATIENT NOT PRONE. VOIDING IN URINAL WITH GOOD OUTPUT. CARE ENDORSED TO NIGHT NURSE.
--- NOTE | 2019-11-29 20:02 | NUR ---
PT. AWAKE, ALERT, SITTING UP IN BED. ORIENTED X4. DENIES HEADACHE OR DIZZINESS. PT. ON HF METER AT 30 LITERS, FIO2 90%. RESP. EVEN, LABORED, 48. DENIES FEELING SOB. NO RESP. DISTRESS NOTED. BREATH SOUNSD COARSE, BLL DIMINISHED. SINUS AUGUSTUS ON MONITOR. DENIES CHESTPAIN OR DISCOMFORT. NO EDEMA TO BLE. PEDAL PULSES STRONG. ABD. SOFT AND ROUND, BOWEL SOUNDS ACTIVE. IV SITE INTACT. [facility] [place] GUARDS OUTSIDE OF DOOR. PT.'S CALL LIGHT WITHIN REACH.
[2019-11-29 20:45] VITALS: BP 109/67
--- NOTE | 2019-11-30 01:14 | NUR ---
PT. RESTING QUIETLY. REMAINS ON HF 35 LITER AND FIO2 OF 90%. NO RESP. DISTRESS NOTED THUS FAR. O2 SAT LEVEL BETWEEN 91-96%, [facility] [place] GUARDS OUTSIDE DOOR. PT.'S CALL LIGHT WITHIN REACH. WILL CONTINUE TO MONITOR.
[2019-11-30 05:30] VITALS: BP 100/64
--- NOTE | 2019-11-30 06:18 | NUR ---
PT. W/ INTERMITTENT DOZE. NO C/O PAIN THROUGHOUT NIGHT. SATURATION LEVELS MOSTLY STABLE THROUGHOUT NIGHT. PT. REMAINS ON HF METER AT 35 LITERS, FIO2 90%. DENIES SOB THROUGHOUT NIGHT. NO C/O CHESTPAIN OR DISCOMFORT. CV GUARD REMAINS WITHIN REACH. WILL ENDORSE PATINET CARE TO INCOMING NURSE.
[2019-11-30 06:44] LABS: BASOPHIL % 0.2 % (0-2); RED CELL DISTRIBUTION WIDTH 13.5 % (11.5-14.5)
[2019-11-30 06:52] LABS: CALCIUM 8.4 mg/dL (8.5-10.1); CARBON DIOXIDE 27.7 mmol/L (21-32); CHLORIDE SERUM 102 mmol/L (98-107); CREATININE SERUM 0.8 mg/dL (0.7-1.3); GLUCOSE SERUM 179 mg/dL (74-106); POTASSIUM SERUM 4.3 mmol/L (3.5-5.1); SODIUM SERUM 137 mmol/L (136-145)
[2019-11-30 06:55] LABS: PLATELET COUNT 405 x10^3mcL (130-400)
[2019-11-30 08:15] VITALS: BP 96/65
--- NOTE | 2019-11-30 10:51 | NUR ---
AT 0800 - RECEIVED PATIENT FROM NIGHT NURSE. AWAKE, ALERT AND ORIENTED. MONITOR SHOWING SINUS BRADYCARDIA; RATE 52. O2 SAT 94% AT REST; DOWN TO 88% ON SITTING UP FOR BREAKFAST. BP STABLE. AFEBRILE. PATIENT IS ON HIGH FLOW OXYGEN AT FIO2 OF 90% AT 0910 - RT HAS REDUCED FIO2 TO 80%.
--- NOTE | 2019-11-30 13:22 | NUR ---
AT 1110 - PATIENT ASSISTED TO BEDSIDE COMODE FOR BOWEL MOVEMENT. RETURNED TO BED AND PLACED IN PRONE POSITION. HAS BEEN TOLERATING LOWER CONCENTRATIONS OF OXYGEN AT FIO2 OF 80%. AT 1300 - SITTING UP FOR LUNCH. O2 SAT DROPS TO 84%. MONITORING CLOSELY.
[2019-11-30 17:55] VITALS: BP 112/67
--- NOTE | 2019-11-30 18:33 | NUR ---
QUIET AFTERNOON. VSS. AFEBRILE. O2 SAT 84-94% DEPENDING ON ACTIVITY. REMAINS ON HIGH FLOW OXYGEN AT 80% FIO2. DROPLET/AIRBORNE ISOLATION MAINTAINED. PATIENT EATING WELL. VOIDING IN URINAL. WILL ENDORSE CARE TO NIGHT NURSE.
--- NOTE | 2019-11-30 20:55 | NUR ---
PT RECIEVED FROM DAY SHIFT NURSE. PT IS RESTING IN BED AT THIS TIME. PT IS ON DROPLET ISOLATION, COVID +. PT IS A/O X4. TELE 7 SINUS BRADYCARDIA. PT HAS PAPABLE PULSES, NO EDEMA PRESENT AT THIS TIME. PT IS ON LOVENOX PROPHYLACTICALLY. PT HAS DIMINISHED BLL. PT IS BREATHING E/U, 35 LPM. PT HAS RT PROTOCOLS IN PLACE. PT HAS ACTIVE BOWEL SOUNDS. PT IS ABLE TO SELF VOID. PT HAS GENERALIZED WEAKNESS AND FULL ROM. SKIN IS CLEAN AND INTACT. NO S/S OF ERYTHEMA OR ECCYMOSIS. PT DENIES PAIN OR DISCOMFORT. PT HAS IV ON THE RFA, CDI. PT IS CALM AND COOPERATIVE. CALL LIGHT WITHIN REACH. WILL CONTINUE TO MONITOR.
[2019-11-30 22:16] VITALS: BP 97/61
--- NOTE | 2019-12-01 00:15 | NUR ---
PT IS RESTING IN BED AT THIS TIME. PT DENIES PAIN OR DISCOMFORT. BREATHING E/U, ON 35 LPM. NO S/S OF ACUTE DISTRESS AT THIS TIME. ALL NEEDS AND CONCERNS ADDRESSED. CALL LIGHT WITHIN REACH WILL CONTINUE TO MONITOR.
[2019-12-01 06:25] VITALS: BP 102/67
--- NOTE | 2019-12-01 06:35 | NUR ---
PT RESTING IN BED. PT IS A/O X4, CALM AND COOPERATIVE. PT DENIED PAIN AND DISCOMFORT. PT BREATHING E/U, ON 35 LPM HIGHFLOW. SP02 91%. PT DENIES CP OR SOB. NO S/S OF ACUTE DISTRESS AT THIS MOMENT. ALL NEEDS AND CONCERNS THIS SHIFT. CALL LIGHT WITHIN REACH. WILL ENDORSE TO DAY SHIFT NURSE.
[2019-12-01 07:23] LABS: BASOPHIL % 0.2 % (0-2); RED CELL DISTRIBUTION WIDTH 13.3 % (11.5-14.5)
[2019-12-01 07:26] LABS: PLATELET COUNT 451 x10^3mcL (130-400)
[2019-12-01 07:30] LABS: CALCIUM 8.9 mg/dL (8.5-10.1); CARBON DIOXIDE 31.7 mmol/L (21-32); CHLORIDE SERUM 102 mmol/L (98-107); CREATININE SERUM 0.9 mg/dL (0.7-1.3); GLUCOSE SERUM 194 mg/dL (74-106); POTASSIUM SERUM 5.4 mmol/L (3.5-5.1); SODIUM SERUM 138 mmol/L (136-145)
[2019-12-01 09:07] VITALS: BP 110/77
--- NOTE | 2019-12-01 12:55 | NUR ---
INCREASED O2 TO 90% DUE TO SATURATION. NOW HFNC 35L 90%. PT TOLERATING WELL. WILL CONT.TO MONITOR
[2019-12-01 13:05] VITALS: BP 93/66
--- NOTE | 2019-12-01 13:20 | NUR ---
SITTING UP ON BED WITH HOB ELEVETED. O2 SATS 85-90% ON CURRENT O2 HIGH FLOW SETTING. PT ENCOURAGED TO PRONE POSITION PRN TOLERATED AND DEEP BREATHE ENCOURAGED. VS WNL. NO C/O PAIN AT THIS TIME. DROPLET PREC. MAINTAINED. CIM GUARDS AT THE DOOR.
[2019-12-01 17:59] VITALS: BP 99/63
--- NOTE | 2019-12-01 18:33 | NUR ---
PT REMAINS IN NO ACUTE RESP. DISTRESS, AWAKE AND ALERT. REMAIANS ON HIGH FLOW O2 AT 90% SATS 91-92%. NO SOB NOTED. PT ENCOURAGED TO PRONE POSITION TOLERATED. NO C/O PAIN OR DISCOMFORT AT THIS TIME. VS WNL. CIM GUARDS AT DOOR. CALL LIGHT WITHIN REACH. DROPLET ISO MAINTAINED. WILL BE ENDORSED TO INCOMING SHIFT.
--- NOTE | 2019-12-01 20:00 | NUR ---
RECEIVED PT , RESTING IN BED. A/O X4. ON 02 AT 90% VIA HIGH FLOW, PRICILLA. WELL. SAT. 90-92% , DENIES SOB OR ANY DISTRESS AT THIS TIME.ENCOURAGED TO MAINTAIN PRONE POSITION NEEDED. SB ON THE MONITOR, DENIES CP OR ANY DISCOMFORT AT THIS TIME. HL TO RFA. INTACT AND PATENT. REMAINS ON DROPLET ISOLATION. GUARDS AT THE DOOR. CALL LIGHT WITHIN REACH. WILL CONTINUE TO MONITOR.
[2019-12-01 21:46] VITALS: BP 106/70
--- NOTE | 2019-12-02 01:33 | NUR ---
RESTING QUIETLY, WITH EYS CLOSED. APPEARS ASLEEP, EASILY AROUSABLE . REMAINS ON HIGH FLOW 35L AND FIO2 OF 90%. SAT. 91-94%. NO SOB OR ACUTE DISTRESS NOTED. GUARDS AT THE DOOR . CALL LIGHT WITHIN REACH. WILL CONTINUE TO MONITOR.
[2019-12-02 05:49] VITALS: BP 112/69
--- NOTE | 2019-12-02 05:53 | NUR ---
AFEBRILE AND VITAL SIGNS STABLE. ALERT AND ORIENTED. REMAINS ON HF AT 35L AND FIO2 90%, PRICILLA. WELL. SAT. 90-94%. DENIES SOB. NO ACUTE DISTRESS NOTED. UE MEDS GIVEN ORDERED, PRICILLA. WELL. NO COMPLAINTS NOTED AT THIS TIME. GUARDS AT THE DOOR. CALL LIGHT WITHIN REACH. WILL CONTINUE TO MONITOR.
[2019-12-02 06:23] LABS: RED CELL DISTRIBUTION WIDTH 14.5 % (11.5-14.5)
[2019-12-02 06:24] LABS: CALCIUM 8.8 mg/dL (8.5-10.1); CARBON DIOXIDE 32.8 mmol/L (21-32); CHLORIDE SERUM 101 mmol/L (98-107); CREATININE SERUM 0.7 mg/dL (0.7-1.3); GLUCOSE SERUM 201 mg/dL (74-106); POTASSIUM SERUM 4.2 mmol/L (3.5-5.1); SODIUM SERUM 137 mmol/L (136-145)
[2019-12-02 06:32] LABS: BASOPHIL % 0 % (0-2); PLATELET COUNT 420 x10^3mcL (130-400)
--- NOTE | 2019-12-02 07:30 | NUR ---
RECIEVED PT LYING IN BED A/A. BREATHING EQUAL/UNLABORED ON HIGH FLOW OXYGEN, SATING AT 91%. ON CONT. PULSE OX. SINUS AUGUSTUS ON TELE. IV SITE WNL. BED IN LOW POSITION, CALL LIGHT IN REACH, SAFETY PRECAUTIONS IN PLACE. WILL CONTINUE TO MONTIOR
[2019-12-02 08:20] VITALS: BP 102/70
--- NOTE | 2019-12-02 11:04 | NUR ---
PT DESATING TO 83%. PT IS EATING AND IS REFUSING TO STOP EATING AND LAY IN PRONE POSITION. EDUCATION REINFORCED. PHYSICIAN PAGED. PT ON HIGH FLOW 35L. WILL CONTINUE TO MONITOR
--- NOTE | 2019-12-02 11:16 | NUR ---
PT IS IN PRONE POSITION AND O2 SAT IS AT 92% ON HIGH FLOW OXYGEN 35L. WILL CONTINUE TO MONITOR
--- NOTE | 2019-12-02 12:09 | NUR ---
PT LYING IN BED WITH EYES CLOSED. EASILY AROUSABLE. BREATHING EQUAL/UNLABORED ON HIGH FLOW OXYGEN. NO ACUTE CHANGES/PAIN/DISTRESS. IV SITE WNL. BED IN LOW POSITION, CALL LIGHT IN REACH, SAFETY PRECAUTIONS IN PLACE. WILL CONTINUE TO MONTITOR
[2019-12-02 12:35] VITALS: BP 105/70
[2019-12-02 17:00] VITALS: BP 107/68
--- NOTE | 2019-12-02 18:26 | NUR ---
PT LYING IN BED A/A. BREATHING EQUAL/UNLABORED ON HIGH FLOW OXYGEN, 35L. SATING AT 92%, ON CONT PULSE OX. IV SITE WNL. BED IN LOW POSITION, CALL LIGHT IN REACH, SAFETY PRECAUTIONS IN PLACE, WILL ENDORSE TO NIGHT NURSE
--- NOTE | 2019-12-02 19:15 | NUR ---
RECEIVED PATIENT FROM PREVIOUS SHIFT NURSE. PATIENT AWAKE, ALERT AND ORIENTED X4. NO ACUTE DISTRESS. EVEN AND UNLABORED BREATHING. ISOALTION PRECAUTIONS IN PLACE. HIGHFLOW 90% IN PLACE. RFA IV WNL. NO ERYTHEMA/EDEMA AT IV SITE. PATIENT DENIES ANY PAIN, OR CHEST PAIN AT THIS MOMENT. PATIENT ENCOURAGED TO LAY PRONE POSITION. BED IN LOWEST POSITION. CALL LIGHT WITHIN REACH.
[2019-12-02 21:01] VITALS: BP 112/78
--- NOTE | 2019-12-03 00:15 | NUR ---
PATIENT IS CURRENTLY SLEEPING PRONE POSITION. NO DISTRESS. NO C/O OF PAIN, CHEST PAIN, OR SOB. CONT PULSE OX IN PLACE. TELE #[address] HR 55. SPO2 88%. CONTINUOUSLY COACHING PATIENT TO TAKE DEEP BREATHS AND LAY PRONE. BED IN LOWEST POSITION. CALL LIGHT WITHIN REACH.
[2019-12-03 05:43] VITALS: BP 109/73
--- NOTE | 2019-12-03 06:30 | NUR ---
PATIENT IN NO ACUTE DISTRESS. PATIENT CURRENTLY SLEEPING. EVEN AND UNLABORED BREATHING. HIGH FLOW 90%, SPO2 91%. TELE #[address] ALL PRECAUTIONS IN PLACE. IV WNL. PATENT, INTACT AND INFUSING WELL. NO C/O OF PAIN, OR CHEST PAIN AT THIS MOMENT. BED IN LOWEST POSITION. CALL LIGHT WITHIN REACH. WILL ENDORSE CARE TO DAY NURSE. WILL CONTINUE TO MONITOR.
[2019-12-03 07:08] LABS: RED CELL DISTRIBUTION WIDTH 14.8 % (11.5-14.5)
[2019-12-03 07:09] LABS: BASOPHIL % 0 % (0-2); PLATELET COUNT 436 x10^3mcL (130-400)
--- NOTE | 2019-12-03 07:45 | NUR ---
PATIENT IN BED, , EATING BREAKFAST. VITAL SIGNS STABLE. PATIENT TEND TO DESATURATE WHEN EATING. NO ACUTE RESP DISTRESS NOTED. REMAINS ON HIGH FLOW 90%. BREATHING TECHNIQUES EDUCATION PROVIDED. NO C/O PAIN. IV INTACT AND PATENT. SAFETY PREC IN PLACE. HOB ELEVATED. CALL LIGHT WITHIN REACH. WILL CONTINUE TO MONITOR. GUARDS OUTSIDE ROOM. REMAINS ON ISOLATION FOR POSITIVE COVID.
[2019-12-03 07:48] VITALS: BP 105/61
[2019-12-03 08:27] LABS: CALCIUM 8.7 mg/dL (8.5-10.1); CARBON DIOXIDE 30.6 mmol/L (21-32); CHLORIDE SERUM 101 mmol/L (98-107); CREATININE SERUM 0.8 mg/dL (0.7-1.3); GLUCOSE SERUM 187 mg/dL (74-106); POTASSIUM SERUM 5.1 mmol/L (3.5-5.1); SODIUM SERUM 139 mmol/L (136-145)
--- NOTE | 2019-12-03 09:30 | NUR ---
PATIENT IN BED, SLEEPING. EASILY AROUSABLE. PATIENT COMPLAINING OF PAIN WHEN DEEP BREATHING. EDUCATED REGARDING SIGN AND SYMPTOMS OF COVID 19 AND WAYS TO FIGHT THE VIRUS. PATIENT VERBALIZED UNDERSTANDING. ENCOURAGED TO REPOSITION SELF AND DO PRONE POSITIONING. IV INTACT AND PATENT. SAFETY PREC IN PLACE. CALL LIGHT WITHIN REACH. WILL CONTINUE TO MONITOR.
--- NOTE | 2019-12-03 10:58 | NUR ---
SPOKE WITH DR. ALMANZA REGARDING WBC 14.8, PLT 436, BUN 26.0, AND RESCUCITATION CODE. PER DR. ALMANZA, PATIENT IS FULL CODE AND OK TO RESUME ZOSYN FOR PATIENT. WILL CONTINUE TO MONITOR.
[2019-12-03 12:10] VITALS: BP 109/61
--- NOTE | 2019-12-03 12:41 | NUR ---
PATIENT TEND TO DESATURATE WHEN EATING AND USING THE BEDSIDE COMMODE. PATIENT REMAINS ON HIGH FLOW 90% PATIENT SATURATION RETURNS TO GOOD RANGE WHEN RESTING COMFORTABLE. NO ACUTE DISTRESS NOTED. NO C/O PAIN. IV INTACT AND PATENT. SAFETY PREC IN PLACE. CALL LIGHT WITHIN REACH. WILL CONTINUE TO MONITOR.
--- NOTE | 2019-12-03 14:38 | NUR ---
PATIENT STABLE. NO ACUTE CHANGES. WILL CONTINUE TO MONITOR.
--- NOTE | 2019-12-03 15:38 | NUR ---
SPOKE WITH DR. LION REGARDING PATIENT WBC 14.8. PER DR. LION, NO NEED TO RESTART ABX AT THIS TIME. WILL CONTINUE TO MONITOR.
[2019-12-03 17:55] VITALS: BP 113/71
--- NOTE | 2019-12-03 18:20 | NUR ---
PATIENT STABLE. NO ACUTE DISTRESS NOTED. NO C/O PAIN. ALL NEEDS MET. WILL ENDORSE CARE TO MEAT SERVICE TEAM MEMBER NURSE.
--- NOTE | 2019-12-03 19:20 | NUR ---
REPORT GIVEN TO SENSITIZED PAPER TESTER NURSE. ALL NEEDS MET.
[2019-12-03 21:30] VITALS: BP 110/71; BP 121/76
--- NOTE | 2019-12-03 21:30 | NUR ---
RECEIVED PT IN BED AWAKE, SLOW TO ANSWER. HE IS ORIENTED X3. LUNG SOUNDS W/ FINE CRACKLES BILAT. ON NON-REBREATHER MASK AT 15 L O2. PT W/ SOB ON EXERTION. HE HAS NO C/O PAIN AT THIS TIME. W/ HL TO RT HAND. CALL LIGHT W/IN REACH.
--- NOTE | 2019-12-03 21:30 | NUR ---
RECEIVED PT IN BED AWAKE, ALERT,ORIENTED X4. LUNG SOUNDS W/ FINE CRACKLES. ON HIGH FLOW O2 AND SATTING 91%. PT STATED HE STILL GETS SOB AT TIMES AND ALSO SAID HE FEELS MORE COMFORTABLE AND BREATHES BETTER WHEN HE IS ON HIS BACK THAN ON PRONE POSITION. W/ HL TO RTFA. HE HAS NO C/O PAIN AT THIS TIME. CALL LIGHT W/IN REACH.
--- NOTE | 2019-12-03 23:24 | NUR ---
PT DESATTING TO 80'S. ADVISED PT TO LIE DOWN ON HIS STOMACH. O2 SAT WENT BACK UP TO 92%. CALLED RT TO CHECK ON PT'S HIGH FLOW O2 SOMETHING GOT DISCONNECTED.
--- NOTE | 2019-12-04 05:31 | NUR ---
PT SLEPT IN LONG INTERVALS. HE REMAINS ALERT AND ORIENTED X4. NO SOB AT THIS TIME. PT REMAINS ON HIGH FLOW O2 AND SATTING 91%. HE HAD NO C/O PAIN. PT AFEBRILE THROUGHOUT THE NIGHT W/ LATEST TEMP OF 97.6. ALL NEEDS ATTENDED TO.
[2019-12-04 05:34] VITALS: BP 117/72
[2019-12-04 07:22] LABS: CALCIUM 8.9 mg/dL (8.5-10.1); CARBON DIOXIDE 32.7 mmol/L (21-32); CHLORIDE SERUM 100 mmol/L (98-107); CREATININE SERUM 0.8 mg/dL (0.7-1.3); GLUCOSE SERUM 186 mg/dL (74-106); RED CELL DISTRIBUTION WIDTH 14.5 % (11.5-14.5); SODIUM SERUM 137 mmol/L (136-145)
[2019-12-04 07:29] LABS: BASOPHIL % 0 % (0-2); PLATELET COUNT 443 x10^3mcL (130-400)
[2019-12-04 07:30] VITALS: BP 114/69
--- NOTE | 2019-12-04 07:30 | NUR ---
RECEIVED REPORT FROM ENMA SERRATO Pt SITTING UP IN BED WATCHING TV A&O X4 RECEIVED ON HIGH FLOW 02 LPM 35 FI02 90% SP02 98% Pt DENIES ANY SOB LUNGS CRACKLES AUSCULTATED BILAT CHEST RISE EQUAL AND LABORED. ON TELE 7 SINUS AUGUSTUS Pt DENIES ANY CHEST PAIN OR DIZZINESS. IV ON RFA PATENT AND INTACT. GUARD AT DOOR ALL NEEDS ATTENDED TO. BED IN LOWEST POSITION CALL LIGHT WITHIN REACH. WILL CONTINUE TO MONITOR.
--- NOTE | 2019-12-04 09:09 | NUR ---
ADMINISTERED SCHEDULED MEDS PER MAR Pt TOLERATED WELL NO ADVERSE REACTIONS NOTED. ALL QUESTIONS AND CONCERNS ADDRESSED AT THIS TIME. SAFETY PRECAUTIONS IN PLACE. WILL CONTINUE TO MONITOR.
[2019-12-04 12:30] VITALS: BP 112/64
--- NOTE | 2019-12-04 12:36 | NUR ---
Pt SITTING UP IN BED ON HIGH FLOW SP 02 88% NO S/S OF ANY ACUTE RESPIRATORY DISTRESS. SERVED LUNCH Pt TOLERATING DIET WELL. ALL NEEDS ATTENDED TO AT THIS TIME. BED IN LOWEST POSITION CALL LIGHT WITHIN REACH. WILL CONTINUE TO MONITOR. GUARD AT DOOR.
--- NOTE | 2019-12-04 15:39 | NUR ---
Follow-up Nutrition Assessment: 230T/B DIONNE SHERMAN 74M LR FU Dx: PNA, COVID r/o PMHx: Afib, HTN Labs: (12/03)glu 186H, BUN 26H, CO2 32.7H, WBC 13.4H Meds: Lovenox, Pepcid, solu-medrol, Zosyn PRN meds: Phenergan, Tylenol, Ventolin Diet: NA2G PO Intake: 30-100% x 10 meals with average PO intake of 81.5% since last visit on 11/27. Diet currently providing 1853kcal and 91g protein meeting 100% of estimated kcal and protein needs. ONS taken noted on 11/29 and 11/30. Weights: (12/03)70.335kg *no significant changes Edema: none noted Last BM: 12/02 Skin: intact [place]: [address] (11/27), Per pt's primary RN, pt's appetite was good and pt did not have SOB when eating. However, pt experienced oxygen desaturation when he sat up and eat. commuter pilot stated that it was not sustainable for pt, and RD recommended ensure so pt can also get additional kcal and protein during limited meal time. RN was agreeable. RD Note (12/03): Pt was in isolation. RD talked to pt's primary RN regarding pt's condition. Per RN, pt's appetite was fair, and pt did not exhibit any GI symptoms. RN also denied SOB during eating. Per nutrition flowsheet on 11/29 and 11/30, nutrition supplements were consumed. Estimated Nutritional Needs Based on adjusted body weight (60kg) Energy: 5416-1817 kcal/day (30-35 kcal/kg for viral infection) Protein: 90-120 g/day (1.5-2 g/kg for viral infection) Fluid: 3963-2601 mL/day (1 mL/kcal) or per MD d/t Pulmonary edema Nutrition Diagnosis: (ongoing) 1. Increased energy and protein needs r/t hypermetabolic state a/e/b pt has viral infection. Intervention: 1. Recommend continue NA2G diet 2. Recommend ensure BID for additional kcal and protein. Monitor/Evaluate: Goal: Have pt meet at least 75% of estimated needs (met, ongoing goal) Monitor: PO intake, Labs, GI function, Body weight F/U in 7 days as low risk 5/21
--- NOTE | 2019-12-04 15:40 | NUR ---
1. Recommend continue NA2G diet 2. Recommend continue ensure BID for additional kcal and protein.
--- NOTE | 2019-12-04 19:17 | NUR ---
NO SIGNIFICANT CHANGES NOTED. NO ACUTE DISTRESS NOTED. GUARD AT DOOR. WILL ENDORSE CARE TO NEXT SHIFT.
--- NOTE | 2019-12-04 19:20 | NUR ---
RECIEVED PT RESTING IN BED WITH NO ACUTE DISTRESS NOTED AT THIS TIME, PT ON 35 LPM HIGH KRYSTIAN, TOLERATING WELL, O2 SATURATION AT 93%, ASSESSMENT PERFOMRED AT THIS TIME, PT IS A/OX4 NO COMPLAINTS OF SAINI OR DIZZINESS AT THIS TIME, PT DENIES PAIN, ALL PT NEEDS ATTENED TO AT THIS TIME, SAFETY PRECAUTIONS IN PLACE, WILL CONTINUE TO MONITOR
[2019-12-04 21:30] VITALS: BP 116/62
--- NOTE | 2019-12-05 00:02 | NUR ---
PT RESTING IN BED WITH NO ACUTE DISTRESS NOTED AT THIS TIME, PT DENIES PAIN OR SOB, ALL NEEDS ATTENDED TO AT THIS TIME, SAFETY PRECAUTIONS IN PLACE, WILL CONTINUE TO MONITOR
--- NOTE | 2019-12-05 02:45 | NUR ---
PT DESATURATING TO MID TO LOW 80'S, HAD PT LAY PRONE, O2 SAT REMAINED UNCHANGED, PT DENIES SOB, CALLED RT.WILL CONTINUE TO MONITOR
--- NOTE | 2019-12-05 03:07 | NUR ---
RT IN TO SEE PT, INCREASED FIO2 TO 100%, O2 SATURATION INCREASED TO 90%
--- NOTE | 2019-12-05 05:05 | NUR ---
PT RESTED THROUGH THE NIGHT WITH NO ACUTE DISTRESS NOTED, PT DID DESATURATE INTO THE MID 80S AND FIO2 WAS INCREASED TO 100% AND PT TOLERATED AND SATURATIONS CAME BACK UP, PT HAD NO EPISODES OF PAIN THROUGH NIGHT, PT VSS, ALL PT NEEDS ATTNEDED TO WILL CONTINUE TO MONIOTOR AND ENDORSE CARE
[2019-12-05 06:04] VITALS: BP 112/61
[2019-12-05 09:21] VITALS: BP 116/62
--- NOTE | 2019-12-05 09:27 | NUR ---
RECEIVED AWAKE, ALERT AND ORIENTED. ON HIGHFLOW O2 AT 90% SATS ONLY 92%. MILD SOB NOTED WITH ACTIVITIES. NO ACUTE DISTRESS. NO C/O PAIN OR DISCOMFORT. HL PATENT. CIM GUADS AT DOOR. CALL LIGHT WITHIN REACH. WILL CONTINUE WITH PLAN OF CARE.
[2019-12-05 13:11] VITALS: BP 112/68
[2019-12-05 17:52] VITALS: BP 117/65
--- NOTE | 2019-12-05 18:47 | NUR ---
PT REMAINS IN NO ACUTE DISTRESS, AWAKE AND ALERT. REMAINS ON HIGH FLOW O2 AT 90%, SATS 88-92%.MILD SOB WITH ACTIVITIES. VS STABLE.HL PATENT. NO C/O PAIN OR DISCOMFORT AT THIS TIME. CIM GUARDS AT THE DOOR. CALL LIGHT WITHIN REACH. WILL BE ENDORSED TO INCOMING SHIFT.
--- NOTE | 2019-12-05 20:00 | NUR ---
PATIENT RECEIVED RESTING IN BED. RESPIRATION EVEN AND UNLABORED, ON HIGH FLOW AT 35%, ON DROPLET/AIRBORNE PRECAUTION. SALINE LOCK TO R FOREARM PATENT AND INTACT. DENIES GI DISCOMFORT, LBM 12/05/19. VOIDING FREELY WITHOUT DIFFICULTY, USES URINAL. GENERALIZED WEAKNESS TO EXTREMITIES. SKIN DRY AND INTACT. TELE #7. DEPUTY AT THE BEDSIDE. WILL CONTINUE TO MONITOR.
[2019-12-05 21:30] VITALS: BP 125/63
[2019-12-06 06:00] VITALS: BP 104/63
--- NOTE | 2019-12-06 06:55 | NUR ---
PATIENT RESTING IN BED, RESPIRATION EVEN AND UNLABORED, ON HIGH FLOW AT 35%, ON AIRBORNE/DROPLET/CONTACT ISOLATION. IV SITE PATENT AND INTACT. ASSISTED WITH NEEDS. SAFETY OBSERVED. PLACED BED IN THE LOWEST POSITION. PLACED CALL LIGHT WITHIN REACH AT ALL TIMES. DEPUTY AT THE BEDSIDE.
--- NOTE | 2019-12-06 07:30 | NUR ---
PT ENDORSE TO ME THIS MORNING, LAYING IN BED RESTING, AA/O X4/ BREATHING EVEN AND UNLABORED ON HIGH FLOW AT 35%/ DENIES ANY SOB OR DISCOMFORT WHILE BREATHING. TELE 7 SR NOTED/ HR 61 NOTED ON TELE. REMAINS ON ISOLATION. VOIDS FREELY. AMB/ KNOWS TO CALL FOR ASSIST. IV TO THE RFA INTACT AND PATENT. CALL LIGHT IN REACH. BED IN LOW POSITIION. WILL CONTINUE TO MONITOR.
[2019-12-06 07:51] LABS: CALCIUM 8.4 mg/dL (8.5-10.1); CARBON DIOXIDE 33.9 mmol/L (21-32); CHLORIDE SERUM 103 mmol/L (98-107); CREATININE SERUM 0.9 mg/dL (0.7-1.3); GLUCOSE SERUM 113 mg/dL (74-106); POTASSIUM SERUM 4.7 mmol/L (3.5-5.1); SODIUM SERUM 140 mmol/L (136-145)
[2019-12-06 08:51] VITALS: BP 96/62
[2019-12-06 09:04] LABS: BASOPHIL % 0.1 % (0-2); PLATELET COUNT 390 x10^3mcL (130-400); RED CELL DISTRIBUTION WIDTH 14.7 % (11.5-14.5)
[2019-12-06 12:50] VITALS: BP 103/78
--- NOTE | 2019-12-06 14:00 | NUR ---
CALLED RT TO CK ON PT/ CURRENT SAT RANGING FROM 85-88% ADVICE PT TO LAY PRONE TO AID WITH 02. PT IS NOW PRONE/ REMAINS ON HIGH FLOW AT 35% SATING AT 92-94% IN PRONE POSITION. WILL CONTINUE TO MONITOR.
[2019-12-06 17:30] VITALS: BP 113/74
--- NOTE | 2019-12-06 18:21 | NUR ---
NO ACUTE CHANGES AT THIS TIME, NO ACUTE RESP DISTRESS OR SOB NOTED, REMAINS ON HIGHFLOW AT 35% SATING AT 92-94%/ DENIES ANY RESP DISTRESS. TELE 7 SR NOTED HR 68 NOTED/ DENIES ANY CP OR PRESSURE. REMAINS ON ISOLATION. WILL ENDORSE TO INCOMING RN.
--- NOTE | 2019-12-06 19:35 | NUR ---
RECEIVED PATIENT FROM PREVIOUS SHIFT. PATIENT IN NO ACUTE DISTRESS. EVEN AND UNLABORED BREATHING, HIGH FLOW 80%. PATIENT SPO2 96%. PATIENT AWAKE, ALERT AND ORIENTED X4. TELE #7 NSR. ISOLATION PRECAUTIONS IN PLACE. PATIENT ABLE TO MAKE NEEDS KNOWN. DENIES ANY PAIN, OR CHEST PAIN. SOB, PATIENT COACHED WITH BREATHING MEASURES. ALL PRECUATIONS IN PLACE. TWO URINALS AT BEDSIDE. URINALS EMPTIED AND MEASURED. RFA, IV WNL. PATENT, INTACT AND INFUSING WELL. GOOD BLOOD RETURN. NO ERYTHEMA/EDEMA AT IV SITE. BED IN LOWEST POSITION. CALL LIGHT WITHIN REACH.
[2019-12-06 19:50] VITALS: BP 116/81
--- NOTE | 2019-12-07 00:20 | NUR ---
PATIENT IN NO ACUTE DISTRESS. CURRENTLY SLEEPING. TELE #7,SB. CONT PULS OX IN PLACE 97%. ALL PRECAUTIONS IN PLACE. BED IN LOWEST POSITION. CALL LIGHT WITHIN REACH.
[2019-12-07 05:30] VITALS: BP 110/72
--- NOTE | 2019-12-07 06:12 | NUR ---
PATIENT REMAINS IN NO ACUTE DISTRESS. EVEN AND UNLABORED BREATHING. PATIENT DENIES ANY PAIN, AND DENIES ANY SOB THIS MORNING. O2 97% ON HIGH FLOW 80%. TELE #[address] CONT PULSE OX. ALL PRECUATIONS AND PROTOCOLS IN PLACE. TWO URINALS AT BEDSIDE. RFA IV WNL. BED IN LOWEST POSITION. CALL LIGHT WITHIN REACH. WILL ENDORSE CARE TO ONCOMING SHIFT NURSE.
[2019-12-07 09:15] VITALS: BP 108/55
--- NOTE | 2019-12-07 09:15 | NUR ---
SEEN RESTING IN BED AAOX3. NO RESP DISTRESS NOTED, ON HIGH FLOW FIO2 35% BY RT. O2SAT BETWEEN 89%-92% DENIES PAIN. V/S CHECKED STABLE. ON CARDIAC DIET. NOTED YELLOW URINE IN COLOR VIA URINAL AT BEDSIDE, URINAL EMPTIED. AM SCHEDULED MEDS GIVEN. S/L TO RFA FLUSHED PATENT. ON LOVENOX PROPHYLAXIS. ENCOURAGED TO REPOSITION Q 2HRS TOLERATE AND TO PRONE POSITION TO IMPROVE O2 SATURATION. PATIENT VERBALIZED UNDERSTANDING. CALL LIGHT PLACED WITHIN EASY REACH. SIDERAILS UP X2. CONTACT/DROPLET ISOLATION MAINTAINED FOR POSITIVE COVID-19. CORRECTIONAL GUARDS OUTSIDE INFRONT THE ROOM.
[2019-12-07 11:03] LABS: BASOPHIL % 0.2 % (0-2); PLATELET COUNT 339 x10^3mcL (130-400)
[2019-12-07 11:08] LABS: CALCIUM 8.8 mg/dL (8.5-10.1); CARBON DIOXIDE 30.1 mmol/L (21-32); CHLORIDE SERUM 100 mmol/L (98-107); CREATININE SERUM 0.7 mg/dL (0.7-1.3); GLUCOSE SERUM 128 mg/dL (74-106); POTASSIUM SERUM 3.6 mmol/L (3.5-5.1); SODIUM SERUM 137 mmol/L (136-145)
--- NOTE | 2019-12-07 12:00 | NUR ---
ASSISTED TO BSC WITH HIGH FLOW 35LPM ON, HAD LARGE BM, ASSISTED BACK TO BED. NOTED PATIENT HAD VERY SOB, O2SAT DROPPED TO 60%. RT PAGED. INSTRUCTED PATIENT TO REPOSITION TO PRONE, REFUSED AT THIS TIME STATED WAIT I CAN'T BREATHE. PATIENT O2SAT SLOWLY WENT UP TO 70-75%. NO RESP DISTRESS NOTED.
--- NOTE | 2019-12-07 12:05 | NUR ---
CALLED IN TO PT'S ROOM. PER RN, PT USED THE COMMODE AND STARTED DESATING TO HIS LOW 80S. FOUND PT TRYING POSTIION HIMSELF ON PRONE. PT SPO2 STARTED TO GO UP SLOWLY BETWEEN 88-91%. ENCOURAGED PT TO DO PRONE POSITION FROM TIME TO TIME IT HELPS IMPROVES HIS OXYGENATION. RN AT BEDSIDE AND AWARE. WILL CONT TO MONITOR
--- NOTE | 2019-12-07 12:28 | NUR ---
O2SAT NOTED WENT UP TO 93%. PRONE POSITION ENCOURAGED OFTEN.
[2019-12-07 12:54] VITALS: BP 108/61
--- NOTE | 2019-12-07 18:22 | NUR ---
NO ACUTE DISTRESS THROUGHOUT SHIFT. O2SAT RANGED FROM 91-92% WITH 35LPM HIGH FLOW AND PRONE POSITION. DESATTING EASILY WITH MILD ACTIVITY. HAD BM X1, VOIDS FREELY VIA URINAL. S/L TO RFA INTACT AND PATENT.
--- NOTE | 2019-12-07 19:26 | NUR ---
RECIEVED PT FROM PREVIOUS SHIFT NURSE. PT AOX4, ABLE TO FOLLOW COMMANDS, SPEECH CLEAR, NO FACIAL DROOPING NOTED, CALM AND COOPERATIVE WITH CARE, DENIES SAINI,N/V, DIZZINESS, OR PAIN AT THE MOMENT. RR EVEN AND UNLABORED ON HIGH FLOW OXYGEN 35ML, AND FI02 80%, DENIES SOB OR DIFFICUTLY BREATHING, AND CHEST RISING EQUALLY. TELE #7 NSR, ON CONTINUOUS PULSE OX:02 94%. DENIES CHEST PAIN OR PRESSURE. NO SIGNS OF ACUTE CHANGE OR DISTRESS NOTED. PT ENCOURAGED TO PRONE. IV RFA WNL, NO ERYTHEMA, EDEMA, OR DRAINAGE NOTED. PT ON AIRBORNE ISOLATION FOR COVID-19(+). BED IN LOWEST POSITION AND CALL LIGHT WITHIN REACH. TWO CORRECTIONAL OFFICERS AT BEDSIDE. WILL CONTINUE TO MONITOR.
[2019-12-07 19:43] VITALS: BP 112/66
--- NOTE | 2019-12-08 01:22 | NUR ---
PT RESTING COMFORTABLE, EASILY AROUSABLE. RR EVEN AND UNLABORED ON HIGH FLOW O2 35ML, AND FIO2:80%, AND PT PRONED. TELE #7 SB, CONT PULSE OX O2:97%. NO SIGNS OF ACUTE CHANGE OR DISTRESS NOTED. IV RFA WNL, NO ERYTHEMA, EDEMA, OR DRAINAGE NOTED. PT MAINTAINED ON AIRBORNE PRECAUTION FOR COVID-19 (+). URINAL AT BEDSIDE. BED IN LOWEST POSITION AND CALL LIGHT WITHIN REACH. TWO CORRECTIONAL OFFICERS PRESENT. WILL CONTINUE TO MONITOR.
--- NOTE | 2019-12-08 02:28 | NUR ---
PT O2 SAT WENT DOWN TO 81%, PT DENIES SOB OR DIFFICULTY BREATHING, NO SIGNS OF ACUTE DISTRESS OR CHANGE NOTED. ENCOURAGED PT TO DEEP BREATH, COUGH, AND SELF PRONE. 02 SAT NOW 95%, WILL CONTINUE TO MONITOR.
--- NOTE | 2019-12-08 06:02 | NUR ---
PT RESTING IN BED, EASILY AROUSABLE. PT IN PRONE POSITION, AOX3, ABLE TO FOLLOW COMMANDS, SPEECH CLEAR, DENIES SAINI, N/V, OR PAIN, CALM AND COOPERATIVE WITH CARE. RR EVEN AND UNLABORED ON HIGH FLOW O2 35LPM, AND FIO2 OF 80%, CHEST RISING EQUALLY, DENIES SOB OR DIFFICULTY BREATHING. TELE #7 SB, HR:50, DENIES CHEST PAIN OR PRESSURE, CONT PULSE OX O2:98%. NO SIGNS OF ACUTE DISTRESS OR CHANGE NOTED. PT MAINTAINED ON AIRBORNE PRECAUTION FOR COVID-19 (+). IV RFA WNL, NO ERYTHEMA, EDEMA, OR DRAINAGE NOTED. BED IN LOWEST POSITION AND CALL LIGHT WITHIN REACH. TWO CORRECTIONAL OFFICERS PRESENT. WILL ENDORSE CARE TO ONCOMING SHIFT NURSE, AND WILL CONTINUE TO MONITOR.
[2019-12-08 06:20] VITALS: BP 108/70
[2019-12-08 06:42] LABS: PLATELET COUNT 324 x10^3mcL (130-400)
[2019-12-08 06:50] LABS: BASOPHIL % 0 % (0-2)
[2019-12-08 06:58] LABS: CALCIUM 8.4 mg/dL (8.5-10.1); CARBON DIOXIDE 34.8 mmol/L (21-32); CHLORIDE SERUM 103 mmol/L (98-107); CREATININE SERUM 0.9 mg/dL (0.7-1.3); GLUCOSE SERUM 119 mg/dL (74-106); POTASSIUM SERUM 4.4 mmol/L (3.5-5.1); SODIUM SERUM 139 mmol/L (136-145)
--- NOTE | 2019-12-08 07:27 | NUR ---
RECEIVED REPORT FROM MAUREEN SERRATO PM, PT SLEEPING IN BED, IN NO APPARENT ACUTE DISTRESS, RESP E/U, NO COUGH NOTED AT THIS TIME, DIM BLL, RALE BUL, HIGHFLOW O2, 95%, TELE #7, SR AT THIS TIME, HR-61, SEE SHIFT ASSESSMENT, SEE SKIN ASSESSMENT, CONTINENT, AMBULATORY, GENERLAIZED WEAKNESS, PALP PULSES, CAP REFILL <2S, IV PATENT, DRESSING CDI, HEPLOCKED, SKIN C/D/W, CIM, GUARDS AT OUTSIDE OF ROOM, HANDCUFF TO RIGHT LEG, SKIN AND CIRCUALTION PATENT, ALL NEEDS ADDRESED, SAFETY PROTOCOL FOLLOWED, CONTINUE TO MONITOR
--- NOTE | 2019-12-08 08:59 | NUR ---
AM MED GIVEN PER MD ORDER, TOLERATED WELL, NO ASE NOTED AT THIS TIME, EDUCATED PT R/T MED, ASE AND MONITOR, VERBALLY UNDERSTANDING, PT ON LOVENOX SQ BID, NO ACTIVE BLEEDING NOTED AT THIS TIME, BREAKFAST PROVIDED, TOLERATED WELL, NO SOB/COUGH NOTED, GUARD AT OUTSIDE OF DOOR, ALL NEEDS ADDRESED, SAFETY PROTOCOL FOLLOWED, CONTINUE TO MONITOR
[2019-12-08 12:35] VITALS: BP 119/76
--- NOTE | 2019-12-08 12:35 | NUR ---
PT SITTING IN BED, PT WANTED TO GO TO BATHROOM, O2 SAT NOTED 80%, PT DENIES SOB OR DIFFICULTY BREATHING, NO SIGNS OF ACUTE DISTRESS OR CHANGE NOTED, ENCOURAGED PT TO DEEP BREATH, COUGH, AND SELF PRONE POSITION, ENCOURAGED TO USE BSC AT THIS TIME D/T CURENT DESAT CONDITION, PT AGREED, 02 NOTED 92%, WILL CONTINUE TO MONITOR.
--- NOTE | 2019-12-08 12:50 | NUR ---
PT AGNES SINGH PAGED R/T PT REQUEST STOOL SOFTENER D/T FIRM STOOL, AWAITING FOR CALLING BACK, CHARGE NURSE JOSE AWARE, PT AWARE, PT TOLERATED LUNCH WELL, SAFETY PROTOCOL FOLLOWED, CONTINUE TO MONITOR
--- NOTE | 2019-12-08 13:41 | NUR ---
PT CAMI BETHEA OFFICE PAGED R/T PT REQUEST STOOL SOFTENER D/T FIRM STOOL, AWAITING FOR CALLING BACK, CHARGE NURSE JOSE AWARE, PT AWARE, BM X 1, SAFETY PROTOCOL FOLLOWED, CONTINUE TO MONITOR
--- NOTE | 2019-12-08 16:29 | NUR ---
PT SLEEPING IN BED, IN NO APPARENT ACUTE DISTRESS, RESP E/U, NO SOB/COUGH NOTED AT THIS TIME, HIGHFLOW O2 35 FiO2 AT 80%, OS SAT NOTED 91-92%, CHEST RISE SYMMETRICALLY, GUARDS AT OUTDOOR, HANDCUFF TO LEFT FOOT, SKIN AND CIRCULATION PATENT, ALL NEEDS ADDRESED, SAFETY PROTOCOL FOLLOWED, CONTINUE TO MONITOR
--- NOTE | 2019-12-08 17:40 | NUR ---
PT RESTING IN BED, IN NO ACUTE DISTRESS, VERBAL, ABLE TO MAKE NEEDS KNOWN, RESP E/U, NO SOB/COUGH NOTED AT THIS TIME, HIGHFLOW O2 35 FiO2 AT 85%, O2 SAT 92%, TELE #7, SR, HR-69 AT THIS TIME, DENIED PAIN/DISCOMFORT, DENIED CP/PALPITATION, DENIED SAINI/N/V/D, IV PATENT, DRESSIGN CDI, HEPLOCKED, BSC, AMBULATORY W/ ASSIST, CONTINENT, TOLERATED DINNER WELL, GUARD AT OUTDOOR, HANDCUFF TO LEFT FOOT, SKIN AND CIRCULATION PATENT, ALL NEEDS ADDRESED, SAFETY PROTOCOL FOLLOWED, WILL ENDORSE TO ONCOMING RN
[2019-12-08 20:00] VITALS: BP 99/54
--- NOTE | 2019-12-08 20:30 | NUR ---
RECEIVED PT IN BED AWAKE, ALERT, ORIENTED X4. SPEECH CLEAR. ABLE TO MAKE NEEDS KNOWN. DENIES PAIN OR DISCOMFORT. LYING IN BED IN NO RESPIRATORY DISTRESS, DENIES SOB. PT ON HIGH FLOW AT 35 WITH 80% FIO2, SATTING 97-98%. ALL DUE MEDS GIVEN ORDERED. SNACKS PROVIDED. BS ACTIVE IN ALL FOUR QUADS. NO ABD PAIN NOTED. ABD IS FLAT NON DISTENDED. URINAL EMPTIED X2, CLEAR LIGHT YELLOW URINE NOTED. SHIFT ASSESSMENT COMPLETED. CALL LIGHT WITHIN REACH. ALL NEEDS TENDED TO. BED IS IN LOWEST POSITION. WILL CONTINUE TO MONITOR CLOSELY.
--- NOTE | 2019-12-08 23:00 | NUR ---
PT SATTING 76%, ENCOURAGED PT TO BE IN PRONE POSITION, PT VERBALIZED UNDERSTANDING. NOW PT SATTING 92%. ALL NEEDS TENDED TO. PT REMAINS IN AIRBORNE ISOLATION FOR COVID (+), ALL PRECAUTIONS ENFORCED. WILL CONTINUE TO MONITOR CLOSELY.
--- NOTE | 2019-12-09 03:15 | NUR ---
PT SATTING 86-88%, ENCOURAGED PT TO PRONE. ALL NEEDS TENDED TO. WILL CONTINUE TO MONITOR CLOSELY.
[2019-12-09 06:12] VITALS: BP 100/67
--- NOTE | 2019-12-09 06:15 | NUR ---
RESTING IN BED IN NO DISTRESS. VSS. FRESH WATER PROVIDED. URINAL EMPTIED. ALL NEEDS TENDED TO. CALL LIGHT WTIHIN REACH. BED IS IN LOWEST POSITION. ALL ISOLATION PROTOCALS FOLLOWED. TWO GUARDS NEAR ROOM. PT REMAINS SHACKLED TO BED. WILL ENDORSE TO INCOMING SHIFT.
[2019-12-09 06:39] LABS: CALCIUM 8.5 mg/dL (8.5-10.1); CARBON DIOXIDE 36.6 mmol/L (21-32); CHLORIDE SERUM 104 mmol/L (98-107); CREATININE SERUM 0.8 mg/dL (0.7-1.3); GLUCOSE SERUM 119 mg/dL (74-106); POTASSIUM SERUM 4.6 mmol/L (3.5-5.1); SODIUM SERUM 140 mmol/L (136-145)
[2019-12-09 06:42] LABS: PLATELET COUNT 293 x10^3mcL (130-400)
[2019-12-09 06:49] LABS: BASOPHIL % 0 % (0-2); RED CELL DISTRIBUTION WIDTH 15.2 % (11.5-14.5)
[2019-12-09 07:25] VITALS: BP 96/58
--- NOTE | 2019-12-09 07:25 | NUR ---
RECEIVED PATIENT FROM PM NURSE, ALERT AND ORIENTED X 4 ABLE TO VERBALIZE NEEDS, LUNG SOUNDS DIMINISHED AT BASES, ON HIGH FLOW OXYGEN, C/O SOB UBON AMBULATING TO BEDSIDE COMMODE, GENERALIZED WEAKNESS, IV ON RFA PATENT AND INTACT, ON TELEMERTY CURRENTLY SR 60, BOWEL SOUNDS ACTIVE, LAST BM 12/07, SKIN INTACT, PEDAL PULSES PRESENT EQUAL AND MODERATE, NO EDEMA NOTED, CONTINENT OF BLADDER, USES URINAL, NO PAIN AT THIS TIME, PLEASANT AND COOPERATIVE
--- NOTE | 2019-12-09 10:00 | NUR ---
PATIENTS O2 SAT DROPPED TO 88% UPON USING BEDSIDE COMMODE TO HAVE A BM, PROVIDED ASSISTANCE AND INSTRUCTIONS ON BREATHING TECHNIQUES, ONCE IN BED OS SAT 92%, WILL CONTINUE TO MONITOR
[2019-12-09 12:30] VITALS: BP 107/60
--- NOTE | 2019-12-09 16:50 | NUR ---
BLOOD SUGAR 100, NO INSULIN COVERAGE NEEDED AT THIS TIME
--- NOTE | 2019-12-09 18:08 | NUR ---
PATIENT LAYING IN HOSPITAL BED, NO C/O PAIN OR DISCOMFORT AT THIS TIME, NO SOB REPORTED, PULSE OX CURRENTLY 93% ON HI FLOW , WILL ENDORSE CARE TO PM NURSE
[2019-12-09 18:10] VITALS: BP 106/66
[2019-12-09 21:08] VITALS: BP 115/70
--- NOTE | 2019-12-09 21:08 | NUR ---
PATIENT RESTING IN BED, A/O X4, VERBALLY RESPONSIVE. CIM PATIENT. ON DROPLET/CONTACT PRECAUTIONS FOR R/O COVID, BREATHING EVEN AND UNLABORED, ON HIGH FLOW OXYGEN, SPO2 97%, DENIES SOB. TELE #7, DENIES CHEST PAIN. ABD SOFT AND ROUND. USES URINAL, 550 ML OF YELLOW URINE COLLECTED, VOIDS FREELY WITHOUT PAIN. NO EDEMA NOTED. VS TAKEN AND WNL. DENIES PAIN AT THIS TIME. CALL LIGHT WITHIN REACH, BED IN LOWEST POSITION.
--- NOTE | 2019-12-10 00:20 | NUR ---
PATIENT RESTING IN BED, WITH EYES CLOSED. EVEN CHEST RISE AND FALL. SHOWS NO SIGN OF PAIN OR DISTRESS. CALL LIGHT WITHIN REACH, WILL CONTINUE TO MONITOR.
[2019-12-10 05:30] VITALS: BP 114/82
--- NOTE | 2019-12-10 05:30 | NUR ---
PATIENT RESTING IN BED, BREATHING EVEN AND UNLABORED ON HIGH FLOW O2 35 LPM AND 80% FIO2. DENIES SOB AND PAIN. NO SIGNIFICANT CHANGES DURING SHIFT. CALL LIGHT WITHIN REACH, DROPLET AND SAFETY PRECAUTIONS MAINTAINED THROUGHOUT SHIFT.
--- NOTE | 2019-12-10 07:30 | NUR ---
RECEIVED PATIENT IN BED IN ISOLATION FOR + COVID 19. CIM GUARDS AT DOOR. PATIENT IS ALERT AND ORIENTED, DENIES ANY PAIN OR DISCOMFORT. HL RT F/A. PATIENT IS IN HIGH ZACK O2 AT 35L 80% FIO2. SAT 95%. DENEIS ANY COUGH OR SOB AT THIS TIME. USES URINAL OR BSC PRN. DENIES ANY PAIN OR DISCOMFORT. TELEL 7 SB HR 55 AT THIS TIME. NO ACUTE DISTRESS NOTED.
[2019-12-10 08:50] VITALS: BP 108/74
--- NOTE | 2019-12-10 12:26 | NUR ---
PATIENT CONTINUES TO REST COMFORTABLY IN BED. NO ACUTE DISTRESS NOTED. DENIES ANY PAIN OR DISCOMFORT. NO ACUTE RESP DISTRESS NOTED AT THIS TIME.
--- NOTE | 2019-12-10 13:12 | NUR ---
PATIENT HAS BEEN IN PRONE POSITION IN BED OFF AND ON THIS AM. TOLERATING WELL. NO CHANGE IN CONDITION NOTED. WILL CONTINUE TO MONITOR.
[2019-12-10 13:30] VITALS: BP 112/69
--- NOTE | 2019-12-10 14:51 | NUR ---
PATIENT'S PLAN OF CARE WAS DISCUSSED AND REVIEWED WITH SUBMARINE ADVISORY TEAM WATCH OFFICER:MADELYN ZULUAGA. I HAVE REVIEWED THE DATA COLLECTION BY SUBMARINE ADVISORY TEAM WATCH OFFICER (NAME):MADELYN ZULUAGA. ENTERED ON (DATE/TIME):12/10/19 I CONCUR WITH THE DATA AND ANY EXCEPTIONS OR COMMENTS ARE LISTED BELOW:
--- NOTE | 2019-12-10 17:37 | NUR ---
PATIENT REMAINS IN BED, AWAKE AND ALERT. CONTINUES ON HIGH FLOW O2 AT 35L FIO2 80%. SAT 94-96%. NO RESP DISTRESS NOTED. PATIENT ABLE TO PRONE SELF AND FOLLOWS COMMANDS WELL. CIM GUARDS AT THE DOOR. CALL LIGHT WITHIN REACH AND PATIENT INSTRUCTED TO USE IT FOR ASSIST. NO ACUTE DISTRESS NOTED.
[2019-12-10 17:43] VITALS: BP 114/70
--- NOTE | 2019-12-10 19:10 | NUR ---
RECEIVED PT FROM DAY SHIFT NURSE. PT ON DROPLET/CONTACT ISOLATION FOR COVID R/O. ALAINA PALOMINO AT DOOR. PT IS A/OX4. PT IS ON HIGH ZACK O2 AT 35L 80% FI02. DENIES ANY PAIN OR DISCOMFORT AT THIS TIME. NO S/S OF ACUTE DISTRESS NOTED. PT ON TELE # 7 READING SR AT 67. O2 STAT 98. CALL LIGHT WITHIN REACH. BED IN LOWEST POSITION. WILL CONTINUE TO MONITOR.
[2019-12-10 21:05] VITALS: BP 115/55
--- NOTE | 2019-12-11 01:05 | NUR ---
PT RESTING IN BED. NO S/S OF ACUTE DISTRESS NOTED. RR EVEN AND UNLABORED. CALL LIGHT WITHIN REACH. BED IN LOWEST POSITION. WILL CONTINUE TO MONITOR.
[2019-12-11 05:55] VITALS: BP 111/66
--- NOTE | 2019-12-11 06:22 | NUR ---
PT SLEEPING IN BED. RR EVEN AND UNLABORED. VITAL SIGNS TAKEN. URINAL EMPTIED. ALL NEEDS AND CONCERNS MET THROUGHOUT THE SHIFT. NO S/S OF ACUTE DISTRESS NOTED. NO C/O PAIN OR SOB AT THIS TIME. CALL LIGHT WITHIN REACH. BED IN LOWEST POSITION. WILL ENDORSE CARE TO ONCOMING SHIFT NURSE. WILL CONTINUE TO MONITOR.
[2019-12-11 07:05] LABS: CALCIUM 8.5 mg/dL (8.5-10.1); CARBON DIOXIDE 37.7 mmol/L (21-32); CHLORIDE SERUM 102 mmol/L (98-107); CREATININE SERUM 0.8 mg/dL (0.7-1.3); GLUCOSE SERUM 118 mg/dL (74-106); POTASSIUM SERUM 4.7 mmol/L (3.5-5.1); SODIUM SERUM 140 mmol/L (136-145)
[2019-12-11 07:12] LABS: BASOPHIL % 0.1 % (0-2); PLATELET COUNT 234 x10^3mcL (130-400)
[2019-12-11 07:24] LABS: RED CELL DISTRIBUTION WIDTH 15.1 % (11.5-14.5)
--- NOTE | 2019-12-11 07:30 | NUR ---
RECEIVED PT IN NO ACUTE DISTRESS. RESTING IN BED. SLEEPING BUT EASILY AROUSABLE. RESP EVEN AND UNLABORED ON HIGH-FLOW AT 35L, FIO2 80%. NO PAIN NOTED. DROPLET ISOLATION. BED IN LOW POSITION, CALL LIGHT WITHIN REACH. CIM STAFF BY ROOM. WILL CONTINUE TO MONITOR.
[2019-12-11 08:10] VITALS: BP 115/75
[2019-12-11 12:33] VITALS: BP 109/64
--- NOTE | 2019-12-11 12:59 | NUR ---
PT IN NO ACUTE DISTRESS. SITTING UP IN BED EATING LUNCH. RESP EVEN AND UNLABORED ON HIGH-FLOW 35LPM, FIO2 80%. NO C/O PAIN. DROPLET ISOLATION. CALL LIGHT WITHIN REACH. WILL CONTINUE TO MONITOR.
--- NOTE | 2019-12-11 14:43 | NUR ---
1. Recommend continue NA2G diet as tolerate 2. Recommend continue Ensure BID for additional 700kcal and 40g protein.
--- NOTE | 2019-12-11 14:43 | NUR ---
Follow-up Nutrition Assessment: 230T/B MADY SHERMANMO 74M LR FU Dx: PNA, COVID r/o PMHx: Afib, HTN Labs: (12/10) GLu 118H, BUN 26H, WBC 11.3H Meds: Cephulac, Lovenox, Pepcid, Solu-medrol PRN meds: Phenergan, Tylenol, Ventolin Diet: NA2G PO Intake: 75-100% x 7 meals with average PO intake of 83%. It provides 1695kcal and 85g protein meeting 94% of estimated energy needs and 94% of estimated protein needs. Adequate. Weights: (12/03)70.335kg *no significant changes Edema: none noted Last BM: 12/09 Skin: Skin intact Y[place]: [address] (12/03), Pt was in isolation. RD talked to pt's primary RN regarding pt's condition. Per RN, pt's appetite was fair, and pt did not exhibit any GI symptoms. RN also denied SOB during eating. Per nutrition flowsheet on 11/29 and 11/30, nutrition supplements were consumed. RD Note (12/10): Per consultation note (12/09), pt remained on high flow O2, and the plan was to wean off O2. Per pt's primary RN, pt had good appetite and had been drinking his ensure. Additionally, pt did not exhibit any GI symptoms, but pt still had some SOB when trying to eat. Estimated Nutritional Needs Based on adjusted body weight (60kg) Energy: 5439-1323 kcal/day (30-35 kcal/kg for viral infection) Protein: 90-120 g/day (1.5-2 g/kg for viral infection) Fluid: 2608-2986 mL/day (1 mL/kcal) or per MD d/t Pulmonary edema Nutrition Diagnosis: (ongoing) 1. Increased energy and protein needs r/t hypermetabolic state a/e/b pt has viral infection. Intervention: 1. Recommend continue NA2G diet as tolerate 2. Recommend continue Ensure BID for additional 700kcal and 40g protein. Monitor/Evaluate: Goal: Have pt meet at least 75% of estimated needs (met, ongoing) Monitor: PO intake, Labs, GI function, Body weight F/U in 7 days as low risk 12/17
[2019-12-11 17:52] VITALS: BP 115/71
--- NOTE | 2019-12-11 18:23 | NUR ---
PT RESTING IN BED. NO ACUTE DISTRESS. BREATHING EVEN AND UNLABORED ON HIGH-FLOW 35 LPM, FIO2 80%. IV WITH NO REDNESS OR SWELLING. DROPLET/AIRBORNE ISOLATION. CIM STAFF BY ROOM. BED IN LOW POSITION, CALL LIGHT WITHIN REACH. WILL ENDORSE TO ONCOMING SHIFT.
--- NOTE | 2019-12-11 19:10 | NUR ---
RECEIVED PATIENT FROM PREVIOUS SHIFT NURSE. PATIENT AWAKE, ALERT AND ORIENTED X4. NO ACUTE DISTRESS, EVEN AND UNLABORED BREATHING. PATIENT ON HIGH FLOW, 35L AND FIO2 80%. SPO2 90%. PATIENT DENIES ANY SOB AT THIS MOMENT. ENCOURAGED TO LAY PRONE AND EDUCATED ON BREATHING MEASURES. TELE #7, NSR. COMMODE AT BEDSIDE, AND TWO URINALS AT THE SIDE OF BED. PATIENT ABLE TO VERBALIZE ANY NEEDS. DENIES ANY PAIN AT THIS MOMENT. RIGHT FOREARM IV, WNL. NO ERYTHEMA/EDEMA AT IV SITE. BED IN LOWEST POSITION. CALL LIGHT WITHIN REACH. WILL CONTINUE TO MONITOR.
[2019-12-11 21:12] VITALS: BP 112/74; BP 154/66
--- NOTE | 2019-12-11 21:40 | NUR ---
ASSUMED CARE FROM NURSE LOUISE. PT AWAKE AND ALERT, WATCHING TV. ANSWERING QUESTIONS APPROPRIATELY. ON HIFLOW O2, O2 SAT 98%. DENIES HAVING SHORTNESS OF BREATH. ABLE TO COMPLETE SENTENCES WITHOUT DIFFICULTY. SINUS BRADYCARDIC, HR 58/MIN. DENIES HAVING PAIN. ON DROPLET/CONTACT ISOLATION. CORRECTIONAL OFFICERS ARE OUTSIDE ROOM.
--- NOTE | 2019-12-11 23:19 | NUR ---
PT LYING ON HIS LEFT SIDE. EYES CLOSED, EASILY AWAKENED. ADJUSTED O2 SENSOR. O2 SAT 97% ON HIFLOW. CALL LIGHT WITHIN EASY REACH.
[2019-12-12 05:58] VITALS: BP 118/78
--- NOTE | 2019-12-12 06:08 | NUR ---
EYES CLOSED, EASILY AWAKENED. STATED SLEPT WELL. STILL ON HIFLOW AT 35LPM OF O2, FIO2 80%. O2 SAT 97%, RR 17. DENIES HAVING SHORTNESS OF BREATH AT THIS TIME. NO COUGHING NOTED. KEPT ON DROPLET/CONTACT ISOLATION. SALINE LOCK TO RIGHT AC. FREE FROM REDNESS OR SWELLING. CORRECTIONAL OFFICERS IN HALLWAY.
--- NOTE | 2019-12-12 07:00 | NUR ---
RECEIEVED PT FROM NIGHT RN. AAOX4, DENIES SAINI/DIZZINESS. RES E/U, NO SOB NOTED. PT ON HIGHFLOW, O2 SAT 100%. TELE MONITOR 7, SHOWING SB, HR IN 50'S. DENIES CP/PRESSURE. PERIPHERAL PULSES PALPABLE, NO EDEMA NOTED. ABDOMEN SOFT, NO GI COMPLAINT. VOIDS IN URINAL WITHOUT DIFFICULTY, NO COMPLAINT. IV SITE TO RFA, SL. IV SITE PATENT AND CDI W NO ERYTHEMA, NO SWELLING NOTED. GUARD OUTSIDE THE DOOR. BED IN LOWEST POSITION, CALL LIGHT WITHIN REACH
--- NOTE | 2019-12-12 07:04 | NUR ---
O2 SAT 99%. IN NO ACUTE DISTRESS. ENDORSED TO NURSE BEE
[2019-12-12 07:30] VITALS: BP 116/75
--- NOTE | 2019-12-12 10:17 | NUR ---
SPOKE WITH DR HEADLEY AND ADVISES TO HAVE RT WEAN PT'S O2. THE GOAL IS TO WEAN TO NASAL CANNULA.
--- NOTE | 2019-12-12 12:00 | NUR ---
TELEPHONED RT TO WEAN O2 PER DR HEADLEY.
[2019-12-12 14:00] VITALS: BP 114/68
--- NOTE | 2019-12-12 14:00 | NUR ---
TITRATED FIO2 TO 70%, PT MAINTAINED SPO2 OF 95-97%. WREATH MACHINE TENDER MADE AWARE. NO ACUTE RESP DISTRESS NOTED. WILL CONT TO MONITOR
--- NOTE | 2019-12-12 17:30 | NUR ---
PT IN BED AAOX4. SEMI BOWERS POSITION. RES E/U, DENIES SOB. O2 SAT 97% ON 30L HIGH FLOW, FIO2 70%. NO ACUTE DISTRESS NOTED.
--- NOTE | 2019-12-12 18:49 | NUR ---
NO SIGNIFICANT CHANGES NOTED. WILL ENDORSE CARE TO NEXT SHIFT
--- NOTE | 2019-12-12 18:53 | NUR ---
LITER FLOW TITRATED TO 25 L/M. SPO2 96%. NO RESPIRATORY DISTRESS AT THIS TIME. WILL CONTINUE TO MONITOR.
[2019-12-12 19:02] VITALS: BP 122/80
[2019-12-12 19:30] VITALS: BP 111/73
--- NOTE | 2019-12-12 19:30 | NUR ---
PT RECIEVED FROM DAY NURSE. PT RESTING IN BED AT THIS TIME. DENIES PAIN OR DISCOMFORT. BREATHING E/U ON HIGH FLOW 25L FIO2 65%. DENIES SOB AT THIS TIME. PT A/O X4, CALM AND COOPERATIVE AT THIS TIME. TELE 7, SR AT THIS TIME. DENIES CP, NV, DIZZINESS, OR PALPATATIONS. PALABLE PULSES, NO EDEMA NOTED AT THIS TIME. ABD SOFT AND ROUND, DENIES PAIN TO PALPATION. GEN WEAKNESS, PT EDUCATED TO PRONE FOR COMFORT. IV TO RFA, CDI. BED AT LOWEST POSITION. CALL LIGHT WITHIN REACH. WILL CONTINUE TO MONITOR.
--- NOTE | 2019-12-12 21:30 | NUR ---
PT ARMBAND WRONGLY SCANNED FOR ACCUCHECK FOR PT IN 232. ACCUCHECK RESULT OF 200 IS INACCURATE FOR PT IN 230. IT IS ACCURATE FOR PT IN 232. CHARGE NURSE MADE AWARE.
--- NOTE | 2019-12-13 | NUR ---
PT RESTING IN BED A THIS TIME. DENIES PAIN OR DISCOMFORT AT THIS TIME. NO S/S OF ACUTE DISTRESS NOTED. PT BREATHING E/U ON HIGH FLOW 25L FI02 50%. DENIES SOB. WILL CONTINUE TO MONITOR.
[2019-12-13 06:30] VITALS: BP 112/74
--- NOTE | 2019-12-13 06:42 | NUR ---
PT RESTING IN BED AT THIS TIME. DENIES PAIN AND DISCOMFORT. PT BREATHING E/U ON HIGHFLOW 25L FIO2 50%. DENIES SOB. NO S/S OF ACUTE DISTRESS NOTED AT THIS TIME. ALL NEEDS AND CONCERNS ADDRESSED THIS SHIFT. BED AT LOWEST POSITION CALL LIGHT WITHIN REACH. WILL ENDORSE TO DAY NURSE.
--- NOTE | 2019-12-13 08:49 | NUR ---
AAO TIMES 4. LUNGS DIMINISHED BILATERALLY. O2 SAT ON HI FLOW 55% FIO2 AND 25 L, O2 SAT 91%. BS'S ACTIVE TIMES 4. AGUILAR, USING BSC. USES URINAL, URINE DARK YELLOW. NO C/O SOB OR PAIN. COOPERATIVE. OFFICERS PRESENT, CIM PRISONER. VS'S STABLE.
[2019-12-13 08:50] VITALS: BP 112/72
[2019-12-13 12:59] VITALS: BP 114/67
[2019-12-13 18:04] VITALS: BP 111/72
--- NOTE | 2019-12-13 18:09 | NUR ---
AAO TIMES 4. NO SOB. NO C/O PAIN. VS'S STABLE. COOPERATIVE. CIM PRISONER, GUARDS OUTSIDE OF DOOR. IV SITE CDI. O2 HI FLOW 25 L AND 50% FI02. WATCHING TV.
[2019-12-13 19:45] VITALS: BP 126/75
--- NOTE | 2019-12-13 19:45 | NUR ---
RECEIVED PT FROM AM NURSE AT THIS TIME. PT AA/O X 4, ABLE TO MAKE NEEDS KNOWN, CLEAR SPEECH, NO FACIAL DROOP. PT DENIES CHEST PAIN/ CHEST PRESSURE. LUNG SOUNDS DIMINISHED BILATERALLY, RESPIRATIONS EVEN AND UNLABORED, PT DENIES SOB. PT ON HIGH FLOW, 25 L, FIO2 50%, RT TO TITRATE NEEDED. ACTIVE BS X 4 QUADS, DENIES N/V/D. USES BSC AND URINAL. 650 CC YELLOW URINE OUTPUT. ENCOURAGED PRONE POSITION. IV TO RFA INTACT, FLUSHES WELL, SALINE LOCK. PT DENIES PAIN AT THIS TIME. SPRITE AND ICE WATER PROVIDED PER PT REQUEST. NO ACUTE DISTRESS. PT IS CIM, 2 GUARDS OUTSIDE DOOR. CALL BUTTON WITHIN REACH, WILL CONTINUE TO MONITOR.
--- NOTE | 2019-12-14 00:20 | NUR ---
PT IS IN BED RESTING AT THIS TIME. CONTINUES ON HIGH FLOW OXYGEN 25 LITERS FI02 50%. NO SOB NO RESPIRATORY DISTRESS AT THIS TIME. NO ACUTE DISTRESS. TWO GUARDS OUTSIDE DOOR. CALL BUTTON WITHIN REACH, WILL CONTINUE TO MONITOR.
--- NOTE | 2019-12-14 00:28 | NUR ---
[facility] FINAL RESULTS RECEIVED, MULTIPLE ORGANISMS PRESENT, POSSIBLE CONTAMINATION. RESIDENT DR. SIMMS MADE AWARE. DR. SIMMS DECIDED RECOLLECTION IS NOT NEEDED.
--- NOTE | 2019-12-14 05:30 | NUR ---
PT SLEPT IN INTERVALS THROUGHOUT THE NIGHT, BUT EASILY AROUSABLE. RESPIRATIONS EVEN AND UNLABORED. PT ON HIGH FLOW 25 LPM FIO2 50%. DENIES SOB. NO ACUTE CHANGES OVER THE NIGHT. VITAL SIGNS WNL. PT DENIES PAIN. PT IS DIM WITH GUARDS OUTSIDE THE DOOR. CONTINUES ON DROPLET PRECAUTIONS. CALL LIGHT WITHIN REACH, WILL CONTINUE TO MONITOR.
--- NOTE | 2019-12-14 06:32 | NUR ---
I HAVE REVIEWED THE DATA COLLECTION BY AMA HOLM: CORINNA WILLARD ENTERED ON: 12/12 1899 - 12/13 I CONCUR WITH THE DATA AND ANY EXCEPTIONS OR COMMENTS ARE LISTED BELOW:
[2019-12-14 06:52] VITALS: BP 111/73
[2019-12-14 08:34] VITALS: BP 116/78
[2019-12-14 12:54] VITALS: BP 112/68
--- NOTE | 2019-12-14 12:56 | NUR ---
VITAL SIGNS STABLE, RT TO BRING INCENTIVE SPIROMETER FOR PATIENT.
--- NOTE | 2019-12-14 18:14 | NUR ---
PATIENT IS CURRENTLY AWAKE ALERT AND ORIENTED. VITAL SIGNS STABLE. PATIENT REMAINS AFEBRILE. PATIENT REMAINS ON DROPLET PRECAUTIONS DUE TO POSITIVE COVID-19 STATUS. PATIENT IS CURRENTLY RECIEVING HIGH FLOW OXYGEN AT 20 LITERS WITH FIO2 OF 55% AND IS SATURATING AT 99%. HOWEVER, PATIENT QUICKLY DESATURATES TO LOW 80'S WITH MINIMAL EXERTION. RESPIRATORY THERAPIST ON BOARD WITH CARE AND PROVIDED PATIENT WITH INCENTIVE SPIROMETER AND PROVIDED INCENTIVE SPIROMETER USE EDUCATION. NO REPORT OF PAIN AT THIS TIME. WILL ENDORSE ALL FURTHER CARE TO THE NOC NURSE.
[2019-12-14 18:21] VITALS: BP 118/75
--- NOTE | 2019-12-14 19:10 | NUR ---
RECEIVED PT AT THIS TIME FROM AM NURSE. PT IS AWAKE AND ALERT AND ABLE TO MAKE NEEDS KNOWN. PT IS DRESSED AND SITTING UP IN A CHAIR IN HIS ROOM. PT IS AWAITING TRANSPORT TO [place] HOME WITH FAMILY. PT IS BEING OBSERVED BY STAFF FROM THE NURSE'S STATION, WILL CONTINUE TO MONITOR UNTIL DISCHARGE.
--- NOTE | 2019-12-14 19:40 | NUR ---
PT RECEIVED AT THIS TIME FROM AM NURSE. AA/O X 4 ABLE TO MAKE NEEDS KNOWN, CLEAR SPEECH, NO FACIAL DROOP. DENIES HEADACHE/ DIZZINESS. TELE MONITOR #7, NSR HR @ 69 BPM. DENIES CHEST PAIN/ CHEST PRESSURE. PULSE PALPABLE, NO EDEMA. PT ON HIGH FLOW OXYGEN, 20 LPM FI02 55%, 02 SAT AT 96%. NO RESPIRATORY DISTRESS AT THIS TIME. DENIES SOB. ACTIVE BS X 4 QUADS, ABD SOFT AND ROUND. DENIES N/V/D. PT VOID USING URINAL. SKIN INTACT. IV TO RFA INTACT AND FLUSHING WELL, DRSG CDI. PT DENIES PAIN. NO ACUTE DISTRESS AT THIS TIME. PT IS CIM, SHACKELS TO LEFT ANKLE AND SKIN INTACT. TWO GUARDS OUTSIDE ROOM. CALL BUTTON WITHIN REACH, WILL CONTINUE TO MONITOR.
[2019-12-14 19:45] VITALS: BP 115/70
--- NOTE | 2019-12-15 00:29 | NUR ---
PT IS IN BED RESTING AT THIS TIME. DENIES SOB, RESPIRATIONS EVEN AND UNLABORED. OXYGEN AT 20 LPM FI02 55% VIA HIGH FLOW. PT DENIES PAIN. TWO GUARDS OUTSIDE DOOR. CALL BUTTON WITHIN REACH, WILL CONTINUE TO MONITOR.
--- NOTE | 2019-12-15 05:22 | NUR ---
PT SLEPT IN INTERVALS THROUGHOUT THE NIGHT, BUT EASILY AROUSABLE. RESPIRATIONS EVEN AND UNLABORED AT O2 SAT AT 97% ON HIGH FLOW 20 LPM FIO2 55%. NO SOB AT THIS TIME. NO ACUTE CHANGES OVER NIGHT. ENCOURAGED PRONE POSITION AND INCENTIVE SPIROMETER USE. CIM PT HAS TWO GUARDS OUTSIDE DOOR. PT DENIES PAIN. SAFETY PRECAUTIONS IN PLACE. CALL BUTTON WITHIN REACH, CARE WILL BE ENDORSED TO AM NURSE.
[2019-12-15 06:30] VITALS: BP 118/74
[2019-12-15 06:34] LABS: BASOPHIL % 0.2 % (0-2); PLATELET COUNT 156 x10^3mcL (130-400)
[2019-12-15 06:49] LABS: RED CELL DISTRIBUTION WIDTH 15.8 % (11.5-14.5)
[2019-12-15 06:50] LABS: CALCIUM 8.5 mg/dL (8.5-10.1); CARBON DIOXIDE 35.9 mmol/L (21-32); CHLORIDE SERUM 103 mmol/L (98-107); CREATININE SERUM 0.9 mg/dL (0.7-1.3); GLUCOSE SERUM 117 mg/dL (74-106); POTASSIUM SERUM 4.1 mmol/L (3.5-5.1); SODIUM SERUM 141 mmol/L (136-145)
--- NOTE | 2019-12-15 07:01 | NUR ---
I HAVE REVIEWED THE DATA COLLECTION BY AMA HOLM: CORINNA WILLARD ENTERED ON: 12/13 1899- 12/14 I CONCUR WITH THE DATA AND ANY EXCEPTIONS OR COMMENTS ARE LISTED BELOW:
--- NOTE | 2019-12-15 07:30 | NUR ---
PT IS AAOX4. TELE [address] READING SINUS AUGUSTUS HR 47. PT DENIES DIZZINESS, C/P AND PRESSURE. HIGH FLOW [address] AT 20LPM, NO COUGH OR SOB AT THIS TIME. PT NOTED TO DESATUARATE WITH ACTIVITY. IV CATH TO RFA PATENT. SITE WNL. CALL LIGHT WITHIN REACH. BED IN LOWEST POSITION. 2 GUARDS IN HALLWAY ON ONE TO ONE SUPERVISION. PT DENIES PAIN.
[2019-12-15 09:02] VITALS: BP 112/74
--- NOTE | 2019-12-15 09:03 | NUR ---
SCHEDULED MEDS GIVEN AND TOLERATED WELL, HIGH FLOW O2 IN PLACE AT 20LPM. RESP EVEN AND UNLABORED. NO RESPIRATORY DISTRESSN NOTED. DENIES PAIN. CALL LIGHT WITHIN REACH. 2 GUARDS AT DOOR ONE ONE TO ONE SUPERVISION.
--- NOTE | 2019-12-15 10:00 | NUR ---
PT PULSE OX DESATURATED TO 82%, PT NOTED TO BE HAVING LARGE FORMED BM. PT ASSISTED WITH GETTING BACK INTO BED. PT HAS SOB WITH O2 SATURATION SLOWLY INCREASING. WILL CONTINUE TO MONITOR.
--- NOTE | 2019-12-15 11:30 | NUR ---
PT NOTED DESATURATED TO 84/5 WITHOUT MUCH ACTIVITY. PT TAUGHT TO BREATH THROW NOSE TO INCREASE OXYGEN SATURATION. R/T EVALUTED PT AND INCREASED FI02 TO 60%. O2 SAT = 95%, RR 24 AT THIS TIME.
--- NOTE | 2019-12-15 12:38 | NUR ---
PT ASSISTED WITH LUNCH TRAY SET-UP. REINFORCED WITH PT TO ATTEMPT PRONE POSITION AFTER LUNCH. PT VERBALIZED UNDERSTANDING. RR 24, O2 SAT AT 95% ON HIGH FLOW 02 AT 20LPM, FI02 60%. WILL CONTINUE TO MONITOR. CALL LIGHT WITHIN REACH.
[2019-12-15 13:14] VITALS: BP 108/67
--- NOTE | 2019-12-15 15:19 | NUR ---
PT PULSE OX DECREASED TO 70% ON 02 HIGH FLOW 02 AT 20LPM. PT SITTING UP AT BED SIDE COMMODE. PT HAD LARGE FORMED BM. PT ASSISTED BACK TO BED WITH O2 SAT AT 06% WITH HIGH FLOW IN PLACE. CALL LIGHT WITHIN REACH. BED IN LOWEST POSITION. WILL CONTINUE TO MONITOR.
[2019-12-15 17:39] VITALS: BP 110/70
--- NOTE | 2019-12-15 17:45 | NUR ---
PT ASSISTED WITH DINNER TRAY SET UP AND I.S.. PT CAN ACHEIVE 1500ML ON I.S. PT PT DENIES PAIN. RESP EVEN AND UNLABORED. NO DISTRESS NOTED. CALL LIGHT WITHIN REACH.
--- NOTE | 2019-12-15 18:03 | NUR ---
PT IS AAOX4. RESP EVEN WITH SOB, RR 24. HIGH FLOW O2 IN PLACE AT 20LPM, NO COUGH NOTED. IV CATH TO RFA PATENT. SITE WNL. TELE [address] READING NSR. HR 71. PT DENIES PAIN AND DISCOMFORT. CALL LIGHT WITHIN REACH. FALL PROTOCOL AND DROPLET PRECAUTIONS MAINTAINED. 2 GUARDS AT DOOR ON ONE TO ONE SUPERVISION.
[2019-12-15 18:11] VITALS: BP 110/70
[2019-12-15 19:58] VITALS: BP 113/67
--- NOTE | 2019-12-15 20:01 | NUR ---
PATIENT RECEIVED IN BED WATCHING TV, ALERT AND ORIENTED X4,SPEECH CLEAR, DENIED HEADACHE NOR DIZZINESS. BREATHING EVEN AND UNLABORED BS CLEAR DIMINISHED BASES, FOUND ON 20LITER AT 55% FIO2 HIGH FLOW, SATURATING 95%, PULSE OXIMTERY PROBE ATTACHED TO RT INDEX FINGER, PATIENT ABLE TO PERFORM INCENTIVE SPIROMETRY EXERCISE AT 1500, ENCOURAGED, PATIENT STATES SOB ON EXERTION, OCC PRODUCTIVE COUGH WHITISH SPUTUM CLEARED BY COUGH.DENIED CHEST PAINS, HR=77BPM, TELE#7,NSR, RHYTHM REGULAR. HEPLOCK TO RT FR PATENT AND INTACT.PATIENT ABLE TO PARTICIPATE IN ADL'S. CALL LIGHT PLACED IN REACH.ABLE TO TURN SELF IN BED INDEPENDENTLY. DENIED PAIN.PATIENT EDUCATED ABOUT PURPOSE OF ISOLATION, ENCOURAGED TO SLEEP IN PRONE POSITION. SAFETY/FALL PRECAUTIONS OBSERVED. PROPER PPE WORN PRIOR TO ENTERING ROOM, HAND WASHING PERFORM. PATIENT REMAINED ON DROPLETS CONTACT ISOLATION FOR POSITIVE COVID-19. PATIENT EDUCATED. WILL CONTINUE TO MONITOR.
--- NOTE | 2019-12-15 21:27 | NUR ---
SCHEDULED MEDS ADMINISTERED, PATIENT INFORMED ABOUT EACH MEDS ACTIONS AND PURPOSE PRIOR. TOOK PILLS WELL.
--- NOTE | 2019-12-16 | NUR ---
PATIENT CHECKED, SLEEPING QUIETLY AND COMFORTABLY, NO RESP. DISTRESS AT REST, REMAINED ON 20LITER FIO2 55% ON HIGH FLOW, SATURATING 95-99%. NSR ON THE MONITOR. DROPLETS ISOLATION OBSERVED AND MAINTAINED. WILL CONTINUE TO MONITOR.
--- NOTE | 2019-12-16 04:00 | NUR ---
PATIENT SATURATION ON HIGH FLOW 55% FIO2 AND 20 LITERS REMAINED RANGING FROM 95-98%.SLEEPING QUIETLY AND COMFORTABLY. WILL CONTINUE TO MONITOR.
[2019-12-16 05:54] VITALS: BP 130/82
--- NOTE | 2019-12-16 06:24 | NUR ---
PATIENT SLEPT GOOD AND RESTED WELL DURING THE SHIFT, NO RESP DISTRESS ENCOUNTERED, WAS IN PRONE POSITION WHILE SLEEPING.HIGH FLOW MAINTAINED AT SAME SETTING,2OLITERS, 55% FIO2, SATURATING BETWEEN 95-98%. RT FOREARM HEP LOCK FLUSHED WELL WITH 10 ML NS,CLAMPED. VOIDED PER URINAL. SAFETY/FALL PRECAUTIONS MAINTAINED. DROPLETS ISOLATION PRECAUTIONS OBSERVED AND MAINTAINED, PROPER PEE WORN PRIOR TO ENTERING ROOM. WILL ENDORSE CONTINUITY OF CARE TO INCOMING NURSE.
[2019-12-16 06:46] LABS: CARBON DIOXIDE 32.5 mmol/L (21-32); CHLORIDE SERUM 102 mmol/L (98-107); CREATININE SERUM 0.8 mg/dL (0.7-1.3); GLUCOSE SERUM 111 mg/dL (74-106); POTASSIUM SERUM 3.6 mmol/L (3.5-5.1); SODIUM SERUM 139 mmol/L (136-145)
[2019-12-16 06:48] LABS: BASOPHIL % 0.3 % (0-2)
[2019-12-16 07:08] LABS: PLATELET COUNT 126 x10^3mcL (130-400); RED CELL DISTRIBUTION WIDTH 15.5 % (11.5-14.5)
--- NOTE | 2019-12-16 07:18 | NUR ---
BEDSIDE HANDS OFF REPORT ABD INTRODUCTION PERFORMED WITH INCOMING NURSE CED.
--- NOTE | 2019-12-16 07:30 | NUR ---
SEEN AOX4, NOT IN DISTRESS,TELE 7 , SINUS BRADYCARDIA, PALPABLE PULSES, NO EDEMA, DIMINISHED BLF, HIGH FLOW AT 20LPM , FI02 55%, O2 SAT 95% +BS, NO N/V, GOOD APPETITE, VOIDS WITH NO DYSURIA, GENERALIZED WEAKNESS, ACTIVE LIMITED ROM, SKIN DRY AND INTACT, NO PAIN AT THIS TIME, IV INTACT AND PATENT TO RFA, NO REDNESS OR SWELLING. CALL LIGHT WITHIN REACH. BED AT LOWEST POSITION.
[2019-12-16 08:53] VITALS: BP 117/68
--- NOTE | 2019-12-16 08:54 | NUR ---
VITAL SIGNS STABLE. PATIENT NOT IN DISTRESS. MEDICATIONS GIVEN PER EMAR. TRAY SERVED. NEEDS MET. DROPLET ISOLATION OBSERVED. HYGIENIC MEASURES DONE.
--- NOTE | 2019-12-16 12:00 | NUR ---
VITAL SIGNS TAKEN, LUNCH TRAY SERVED, ENCOURAGED INCENTIVE SPIROMETER . DROPLET PRECAUTIONS OBSERVED. HYGIENIC MEASURES DONE.
[2019-12-16 12:43] VITALS: BP 118/68
[2019-12-16 18:31] VITALS: BP 112/78
--- NOTE | 2019-12-16 19:36 | NUR ---
PATIENT RECEIVED IN BED ALERT AND ORIENTED X4, SPEECH CLEAR,DENIED HEADACHE AND DIZZINESS, NO RESP. DISTRESS, BREATHING EVEN AND UNLABORED AT THIS TIME, STATES GET LABORED BREATHING WITH ACTIVITY, OCC PRODUCTIVE COUGH OF WHITISH PHELGM,ENCOURAGED BREATHING EXERCISES.FOUND ON 20LITERS HIGH FLOW WITH FIO2 OF 55%, CONTINOUS PULSE OXIMETRY PROBE ATTACHED TO RIGHT MIDDLE FINGER, SATURATING BETWEEN 92-98%. TELE#7 NSR, HR=75BPM, RHYTHM REGULAR. RT FOREARM HEPLOCK PATENT AND INTACT, DRESSING SECURED,CLAMPED. PATIENT VOIDING FREELY, URINAL PLACED AT BEDSIDE TABLE. PATIENT EDUCATED ABOUT PURPOSE OF PRONE POSITIONING, ISOLATION PRECAUTIONS, BREATHING TREATMENT,LOVENOX. PATIENT APPEARED COMFORTABLE THIS TIME. PATIENT WITH GENERALIZED WEAKNESS, NEEDS ANTICIPATED, PATIENT IS ABLE TO PARTICIPATE WITH CARE AND SIMPLE ADL'S WITH ASSIST, USES BSC FOR HIS NEEDS. SAFETY/FALL PRECAUTIONS MAINTAINED. OBSERVED AND MAINTAINED DROPLETS ISOLATION PRECAUTIONS, PROPER PPE WORN PRIOR TO ENTERING ROOM, HAND WASHING TECHNIQUE PERFORMED. WILL CONTINUE TO MONITOR.
[2019-12-16 20:41] VITALS: BP 123/74
--- NOTE | 2019-12-16 20:42 | NUR ---
SCHEDULED MEDS ADMINISTERED AT THIS TIME, PATIENT INFORMED ABOUT EACH MEDS ACTIONS AND PURPOSES PRIOR. TOOK MEDS WELL.
--- NOTE | 2019-12-17 | NUR ---
PATIENT SLEEPING AT THIS TIME, SATURATING AT 95% ON HIGH FLOW 20LITERS AND FIO2 AT 55%, HR=60BPM.WILL CONTINUE TO MONITOR.
[2019-12-17 06:28] LABS: CALCIUM 8.8 mg/dL (8.5-10.1); CHLORIDE SERUM 103 mmol/L (98-107); CREATININE SERUM 0.9 mg/dL (0.7-1.3); GLUCOSE SERUM 120 mg/dL (74-106); POTASSIUM SERUM 4.8 mmol/L (3.5-5.1); SODIUM SERUM 141 mmol/L (136-145)
[2019-12-17 06:36] VITALS: BP 117/82
[2019-12-17 06:38] LABS: BASOPHIL % 0.2 % (0-2)
[2019-12-17 06:41] LABS: PLATELET COUNT 116 x10^3mcL (130-400); RED CELL DISTRIBUTION WIDTH 16.3 % (11.5-14.5)
--- NOTE | 2019-12-17 06:52 | NUR ---
PATIENT HAD A RESTFUL NIGHT,MILD SOB ON EXERTION NOTED, MAINTAINED ON 20 LITERS ON HIGH FLOW AND FIO2 AT 55%, SATURATING BETWEEN 92-98% NSR ON THE MONITOR. OBSERVED PATIENT LYING IN PRONE POSITION DURING THE NIGHT. RT FOREARM HEPLOCK FLUSHED WELL CLAMPED, DRESSING CLEAN AND DRY. 2 CIM OFFICER OUTSIDE ROOM. SAFETY/FALL PRECAUTIONS MAINTAINED,DROPLETS ISOLATION OBSERVED AND MAINTAINED, PROPER PPE WORN PRIOR TO ENTERING ROOM. WILL ENDORSE CONTINUITY OF CARE TO INCOMING NURSE.
--- NOTE | 2019-12-17 07:17 | NUR ---
BEDSIDE HANDS OFF REPORT AND INTRODUCTION PERFORMED WITH INCOMING NURSE JOHN.
--- NOTE | 2019-12-17 08:39 | NUR ---
RECEIVED PATIENT ON HIGH FLOW AT 29.7 AND VITALS AT THIS TIME AT 97.8, 20, 123/82, 57, 96%. PATIENT HAS DIMINISHED BREATH SOUNDS AND BOWEL SOUNDS ACTIVE. PATIENT HAS PULSES PALPABLE AND NO EDEMA NOTED TO THE LOWER EXTREMTIES. ONITNUED ON SOLUMEDROL AND LOVENOX AND THE NOTED LABS SHOW PLATLETS AT 116 BUT THE DOCTORS WANT TO CONTINUE THE LOVENOX ORDERED. PATIENT HAS BEEN ON SOLUMEDROL AND PEPCID WELL AND NO COMPLAINTS OF STOMACH UPSET AND TOELRATE DIET ORDERED. HE STATES HE HAS HAD A PRODUCTIVE COUGH AND HAS NOTED. SINUS AUGUSTUS AND AND SINUS RHYTHM. JULIO HAS HISTORY OF AFIB BUT DENIES ANY CHEST PAIN AT THIS TIME HE HAS HTN AND DYLIPIDEMIA AND HE HAS NO FEVER AND DENIES SOB AT THIS TIME. HIS ONLY CONCERN WAS THE FLUID IN HIS HIGH FLOW TUBING AND RT WAS MADE AWARE. GUARDS AT BEDSIDE AND CONTINUED ON DROPLET ISOLATION ORDERED.
[2019-12-17 08:45] VITALS: BP 123/82
--- NOTE | 2019-12-17 12:45 | NUR ---
ENCOURAGE TO DEEP BREATH AND MONITORING FOR ANY SIGNS OF RESPIRATORY DISTRESS. GUARDS AT BEDSDIE. VITALS ARE AT 95% ON THE HIGH FLOW, 20, 111/71, 69, 98.6. LUBNA HAS GOOD URINE OUTPUT OF 1200CC. TOLERATE OOB TO THE BEDSIDE COMODE WELL. DENIES ANY PAIN AND HAS BEEN COOPERATIVE WITH CARE.
[2019-12-17 13:00] VITALS: BP 111/71
--- NOTE | 2019-12-17 15:21 | NUR ---
ATE WELL A LUNCH AND THE PULSE OX SENSOR CHANGED AND A BETTER READING AT 96% NOTED. WILL CONTINUE TO MONITOR AND NO ACUTE RESPIRATORY DISTRESS AT THIS TIME.
[2019-12-17 17:18] VITALS: BP 113/71
--- NOTE | 2019-12-17 17:19 | NUR ---
PATIENT DENIES PAIN AND, NO ACUTE RESPIRATORY DISTRESS AT THIS TIME. IV INTACT AND PATIENT HAS GUARDS AT BEDSIDE AND SECURITY HAS BEEN MAINTAINED.
--- NOTE | 2019-12-17 19:42 | NUR ---
PT. AWAKE, ALERT, SITTING UP IN BED. ORIENTED X4. DENIES HEADACHE OR DIZZINESS. PT. ON HIGH FLOW METER AT 20LITERS, FIO2 55%. RESP. EVEN, UNLABORED. PT. DENIES FEELING SOB. BREATH SOUNDS DIMINISHED BLL. NSR ON MONITOR, DENIES CHESTPAIN. NO EDEMA TO EXTREMITIES. PEDAL PULSES MODERATE. ABD. SOFT AND ROUND, BOWEL SOUNDS ACTIVE. DENIES ABD. PAIN, DENIES NAUSEA. SADE GUARDS AT OUTSIDE OF DOOR. CALL LIGHT WITHIN REACH.
[2019-12-17 21:00] VITALS: BP 119/74
--- NOTE | 2019-12-18 00:39 | NUR ---
PT. SLEEPING, QUIET. NO COMPLAINTS THUS FAR. REMAINS ON HIGH FLOW METER. NO RESP. DISTRESS. SATURATION 95%. SINUS AUGUSTUS, 54. CALL LIGHT WITHIN REACH.
[2019-12-18 05:34] VITALS: BP 114/73
--- NOTE | 2019-12-18 05:35 | NUR ---
PT. WAS ASLEEP, AWAKENED EASILY. NO C/O PAIN THROUGOUT NIGHT. NO RESP. DSITRESS. PT. REMAINS ON HF METER AT 20LITER, 55% FIO2, SADE GUARDS AT OUTSIDE OF DOOR. IV INTACT. CALL LIGHT WITHIN REACH. WILL ENDORSE PT. CARE TO INCOMING NURSE.
--- NOTE | 2019-12-18 08:00 | NUR ---
RECEIVED PT. IN BED A/A/O X3. NO SOB, NO N/V NOTED. PT. DENIES ANY PAIN AT THIS TIME. PT. IS ON HIGH FLOW OXYGEN AT 20L/MIN. PT. IS ON CONTACT/DROPLET ISOLATION FOR (+) COVID-19. IV H/L NOTED TO R AC. CIM OFFICERS X2 AT BEDSIDE. BED IN LOW POS., CALL LIGHT WITHIN REACH. SIDE RAILS UP X3.
[2019-12-18 09:11] VITALS: BP 132/81
[2019-12-18 14:00] VITALS: BP 122/70
--- NOTE | 2019-12-18 14:30 | NUR ---
1. Recommend continue NA2G diet 2. Recommend continue Ensure BID for additional kcal and protein.
--- NOTE | 2019-12-18 14:30 | NUR ---
Follow-up Nutrition Assessment: 230T/B LANEMADYMO 74M LR FU Dx: PNA, COVID r/o PMHx: Afib, HTN Labs: (12/16) CO2 36H, Glu 120H, Glu 120H, BUN 21H, HCT 41L Meds: Cephulac, Lovenox, Pepcid, Solu-medrol PRN meds: Phenergan, Tylenol, Ventolin Diet: NA2G PO Intake: 70-100% x 8 meals with average PO intake of 85% since last visit. Kcal and protein intake remain adequate, and pt has been drinking ONS as noted in flowsheet. Weights: (12/17)70.335kg *no significant changes Edema: none noted Last BM: 12/16 Skin: skin intact Y[place]: [address] (12/10), pt remained on high flow O2, and the plan was to wean off O2. Per pt's primary RN, pt had good appetite and had been drinking his ensure. Additionally, pt did not exhibit any GI symptoms, but pt still had some SOB when trying to eat. RD Note (12/17): Per progress note (12/17), pt remain on high flow O2, supportive care, proning. Pt remained in isolation. Per nutrition flowsheet, pt currently has average 85% PO intake. It approximately provided 1945kcal and 95g protein meeting 100% of estimated kcal and protein needs. Estimated Nutritional Needs Based on adjusted body weight (60kg) Energy: 3501-2360 kcal/day (30-35 kcal/kg for viral infection) Protein: 90-120 g/day (1.5-2 g/kg for viral infection) Fluid: 3775-2520 mL/day (1 mL/kcal) or per MD d/t Pulmonary edema Nutrition Diagnosis: (ongoing) 1. Increased energy and protein needs r/t hypermetabolic state a/e/b pt has viral infection. Intervention: 1. Recommend continue NA2G diet 2. Recommend continue Ensure BID for additional kcal and protein. Monitor/Evaluate: Goal: Have pt meet at least 75% of estimated needs (met, ongoing goal) Monitor: PO intake, Labs, GI function, Body weight F/U in 7 days as low risk 6/4
--- NOTE | 2019-12-18 15:00 | NUR ---
NASOPHARYNGEAL SWAB OBTAINED AND SENT TO LAB FOR A REPEAT OF COVID TESTING (COVID #2 TESTING) PER DR. ALMANZA'S ORDER.
--- NOTE | 2019-12-18 17:15 | NUR ---
PT. IS BEING PLACED ON O2 AT 12L VIA OXYMIZER AT THIS TIME. WILL CONTINUE TO MONITOR.
[2019-12-18 18:00] VITALS: BP 125/70
--- NOTE | 2019-12-18 18:06 | NUR ---
REMAINS IN STABLE CONDITION AT THIS TIME. NOTICED PT. IS PLACED ON O2 AT 8L VIA OXYMIZER BY RESP. THERAPIST AT THIS TIME. O2 SAT.= 98%. CIM OFFICERS X2 AT DOORWAY. WILL CONTINUE TO MONITOR.
--- NOTE | 2019-12-18 20:07 | NUR ---
PT. AWAKE, ALERT, ORIENTED X4. DENIES HEADACHE OR DIZZINESS. BREATH SOUNDS DIMINSIHED BLL. RESP. EVEN, UNLABORED. NO SOB NOTED AT THIS TIME. PT. ON 8 LITER OXYMZER. NSR ON MONITOR, DENIES CHESTPAIN OR DISCOMFORT. NO EDEMA NOTED TO EXTREMITY. PEDAL PULSES MODERATE. ABD. SOFT AND ROUND, DENIES ABD. PAIN, DENIES NAUSEA. CALL LIGHT IN REACH. SADE GUARDS AT BEDSIDE.
--- NOTE | 2019-12-19 00:14 | NUR ---
PT. DOZING, EYES CLOSED. APPEARS COMFORTABLE. SATURATION LEVELS REMAINS ABOVE 95% . CALL LIGHT REMAINS WITHIN REACH. SADE GUARD REMAINS AT BEDSIDE.
--- NOTE | 2019-12-19 05:57 | NUR ---
PT. DOZING, EASY TO WAKE. SLEPT MOSTLY THROUGHOUT NIGHT. NO RESP DISTRESS OR C/O SOB. NO C/O PAIN. PT. SAT. 98% 8L OXYMYZER. IV HEPLOCKED, REMAINS INTACT. SADE GUARDS OUTSIDE DOOR. CALL LIGHT WITHIN REACH. WILL ENDORSE PT. CARE TO INCOMING NURSE.
[2019-12-19 06:41] LABS: BASOPHIL % 0.3 % (0-2)
[2019-12-19 06:50] LABS: PLATELET COUNT 116 x10^3mcL (130-400); RED CELL DISTRIBUTION WIDTH 15.8 % (11.5-14.5)
[2019-12-19 07:11] LABS: CARBON DIOXIDE 33.5 mmol/L (21-32); CHLORIDE SERUM 103 mmol/L (98-107); CREATININE SERUM 0.7 mg/dL (0.7-1.3); GLUCOSE SERUM 121 mg/dL (74-106); POTASSIUM SERUM 4.2 mmol/L (3.5-5.1); SODIUM SERUM 140 mmol/L (136-145)
--- NOTE | 2019-12-19 07:30 | NUR ---
RECEIVED PT FROM DATA COLLECTION ASSOCIATE. NO ACUTE DISTRESS NOTED AT THIS TIME.
[2019-12-19 08:06] LABS: C REACTIVE PROTEIN < 0.2 mg/dL (<=0.9)
--- NOTE | 2019-12-19 08:14 | NUR ---
RT AT BEDSIDE, DECREASED OXIMIZER TO 6L
--- NOTE | 2019-12-19 08:50 | NUR ---
MORNING ASSESSMENT/MED PASS COMPLETE. PT AWAKE, ALERT. A/OX4. PT ON OXIMIZER AT 6L WITH NO RESP DISTRESS. PT REPORTS SOME SOB BUT MUCH IMPROVED. PT ON TELE 7, SINUS AUGUSTUS AT 50 AT THIS TIME. DENIES CHEST PAIN. IV ACCESS RFA, CDI SALINE LOCKED. PERIPHERAL PULSES PALPABLE, NO EDEMA NOTED. ACTIVE BS NOTED. PT DENIES ISSUES WITH ELIMINATION. PT USES BSC. PT AMBULATORY. PT DENIES PAIN AT THIS TIME. SAFETY MEASURES IN PLACE, BED LOW AND LOCKED. CALL LIGHT WITHIN REACH.
[2019-12-19 08:52] VITALS: BP 127/67
[2019-12-19 12:44] VITALS: BP 117/73
--- NOTE | 2019-12-19 12:45 | NUR ---
VSS AT THIS TIME. PT RESTING COMFORTABLY WITH NO RESP DISTRESS. O2 SAT 98% ON 6L OXIMIZER. PT UP EATING LUNCH AT THIS TIME. ALL NEEDS TENDED TO. PT HAD BM, FORMED.
--- NOTE | 2019-12-19 15:25 | NUR ---
URINAL EMPTIED AT THIS TIME. 700ML OUT CLEAR, YELLOW. PT DENIES PAIN OR SHORTNESS OF BREATH AT THIS TIME. SAFETY MAINTAINED. CALL LIGHT WITHIN REACH.
[2019-12-19 18:18] VITALS: BP 129/81
--- NOTE | 2019-12-19 18:19 | NUR ---
VSS, PT DENIES SOB AT THIS TIME. PT UP EATING DINNER. DENIES PAIN. SAFETY MEASURES MAINTAINED.
--- NOTE | 2019-12-19 18:25 | NUR ---
PT STABLE AT THIS TIME. WILL CONTINUE TO MONITOR AND ENDORSE CARE TO PRINCIPAL MECHANICAL ENGINEER.
--- NOTE | 2019-12-19 19:25 | NUR ---
CARE ASSUMED FROM OUTGOING RN. PT RESTING COMFORTABLY IN BED. NO ACUTE DISTRESS NOTED. EVEN AND UNLABORED RESPIRATIONS ON 6L OXYMIZER. ON TELE# 7 READING SR 65 WITH DEPRESSED T WAVE. NO C/O SOB OR PAIN AT THIS TIME. CIM GUARDS OUTSIDE DOOR. CONTACT AND DROPLET ISOLATION IN PLACE. BED IN LOWEST POSITION. SIDE RAILS UPX2. CALL LIGHT WITHIN REACH. WILL CONTINUE TO MONITOR.
[2019-12-19 20:40] VITALS: BP 125/72
--- NOTE | 2019-12-19 23:57 | NUR ---
PT RESTING COMFORTABLY IN BED WITH EYES CLOSED. NO ACUTE DISTRESS NOTED. EVEN AND UNLABORED RESPIRATIONS ON 6L OXYMIZER, ON CONT. PULSE OX MONITORING SATTING 96%, ON TELE # 7 READING SB 58 WITH DEPRESSED T WAVE. CIM GUARDS OUTSIDE DOOR. CONTACT AND DROPLET ISOLATION IN PLACE. BED IN LOWEST POSITION. SIDE RAILS UPX2. CALL LIGHT WITHIN REACH. WILL CONTINUE TO MONITOR.
[2019-12-20 05:31] VITALS: BP 121/76
--- NOTE | 2019-12-20 06:14 | NUR ---
PT RESTED COMFORTABLY IN INTERVALS THROUGHOUT THE SHIFT. ALL NEEDS TENDED TO AND MET. ALL SCHEDULED MEDICATIONS GIVEN. EVEN AND UNLABORED RESPIRATIONS ON 6L OXYMIZER, ON CONT. PULSE OX MONITORING SATTING 99%, ON TELE #7 READING SB 48. NO C/O PAIN OR SOB. CIM GUARDS AT DOOR. BED IN LOWEST POSITION. SIDE RAILS UPX2. CALL LIGHT WITHIN REACH. WILL ENDORSE TO ONCOMING SHIFT.
--- NOTE | 2019-12-20 07:30 | NUR ---
PT ENDORSE TO ME THIS MORNING, LAYING IN BED RESTING, REMAINS ON ISOLATION. AA/O X4 BREATHING EVEN AND UNLABORED ON 6 L OXYMIZER/ SATING 99 % NO ACUTE RESP DISTRESS OR SOB NOTED. TELE 7 SB NOTED 52 NOTED ON MONITOR. DENIES ANY CP OR PRESSURE. BOWEL SOUNDS ACTIVE IN ALL FOUR QUADS, VOIDS FREELY, AMB. IV TO THE RAC INTACT AND PATENT/ NO RENDESS OR SWELLING NOTED. CALL LIGHT IN REACH. BED IN LOW POSITION. WILL CONTINUE TO MONITOR.
[2019-12-20 09:57] VITALS: BP 123/79
[2019-12-20 12:36] VITALS: BP 118/73
--- NOTE | 2019-12-20 16:25 | NUR ---
PT SETTING UP IN BED WATCHING TV. REMAINS ON OXYIMER AT 4L NC SATING AT 92-94% NO ACUTE RESP DISTRESS OR SOB NOTED. DENIES ANY CP OR PRESSURE OR DISCOMFORT. CALL LIGHT IN REACH. WILL CONTINUE TO MONITOR.
[2019-12-20 17:44] VITALS: BP 129/81
--- NOTE | 2019-12-20 17:51 | NUR ---
NO ACUTE CHANGES AT THIS TIMEE,NO ACUTE RESP DISTRESS OR SOB NOTED. REMAINS ON 4 L OXYMIER TOLERATING WELL/ SATING AT 96-98 %. IV TO THE RAC INTACT AND PATENT. WILL ENDORSE TO INCOMING RN.
--- NOTE | 2019-12-20 18:23 | NUR ---
REC [facility] TROUGH 11.5 PHARMACY WILL CONTINUE SAME DOSE. WILL HANG ONCE MEDICATION IS BROUGHT UP TO UNIT.
--- NOTE | 2019-12-20 19:15 | NUR ---
CARE ASSUMED FROM OUTGOING RN. PT RESTING COMFORTABLY IN BED WITH EYES CLOSED. EVEN AND UNLABORED RESPIRATIONS NOTED ON 4L OXYMIZER. ON CONT PULSE OX MONITORING SATTING 94%, ON TELE# 7 READING SR 64 WITH DEPRESSED T WAVE. NO S/S PAIN OR SOB. CIM GUARD AT DOOR. CONTACT AND DROPLET PRECAUTIONS IN PLACE. BED IN LOWEST POSITION. SIDE RAILS UPX2. CALL LIGHT WITHIN REACH. WILL CONTINUE TO MONITOR.
[2019-12-20 20:30] VITALS: BP 120/71
--- NOTE | 2019-12-21 00:48 | NUR ---
PT RESTING COMFORTABLY IN BED WITH EYES CLOSED. NO ACUTE DISTRESS NOTED. EVEN AND UNLABORED RESPIRATIONS ON 4L OXYMIZER, ON CONT. PULSE OX MONITORING SATTING 95%, ON TELE# 7 READING SB 57 WITH DEPRESSED T WAVE. CIM GUARD AT DOOR. CONTACT AND DROPLET ISOLATION IN PLACE. BED IN LOWEST POSITION. SIDE RAILS UPX2. CALL LIGHT WITHIN REACH. WILL CONTINUE TO MONITOR.
[2019-12-21 05:26] VITALS: BP 125/79
--- NOTE | 2019-12-21 06:18 | NUR ---
PT RESTED COMFORTABLY IN PRONE POSITION IN INTERVALS THROUGHTOUT THE SHIFT. ALL NEEDS TENDED TO AND MET. ALL SCHEDULED MEDICATIONS GIVEN. EVEN AND UNLABORED RESPIRATIONS ON 4L OXYMIZER, SATTING 96-99%. ON TELE# 7 READING SB/SR WITH DEPRESSED T WAVE. NO C/O SOB OR PAIN. CIM GUARDS AT DOOR. CONTACT AND DROPLET ISOLATION IN PLACE. BED IN LOWEST POSITION. SIDE RAILS UPX2. CALL LIGHT WITHIN REACH. WILL ENDORSE TO ONCOMING SHIFT.
[2019-12-21 07:02] LABS: BASOPHIL % 0.2 % (0-2); PLATELET COUNT 136 x10^3mcL (130-400)
[2019-12-21 07:13] LABS: RED CELL DISTRIBUTION WIDTH 16.3 % (11.5-14.5)
--- NOTE | 2019-12-21 07:13 | NUR ---
REPORT TAKEN FROM TIMING INSPECTOR NURSE AT THE NURSE STATION TO REDUCE RISK OF EXPOSURE TO COVID 19. PER REPORT, PATIENT IS IN NO ACUTE DISTRESS, ON 4 LITERS OF O2 VIA OXYMIZER. TELE 7 READS NSR AT THIS TIME. WILL CONTINUE TO MONITOR.
[2019-12-21 07:36] LABS: ALBUMIN 2.8 g/dL (3.4-5.0); ALKALINE PHOSPHATASE 95 U/L (46-116); ALT/SGPT 95 U/L (16-63); AST/SGOT 25 U/L (15-37); BILIRUBIN TOTAL 0.4 mg/dL (0.20-1.00); CALCIUM 8.5 mg/dL (8.5-10.1); CARBON DIOXIDE 34.7 mmol/L (21-32); CHLORIDE SERUM 102 mmol/L (98-107); CREATININE SERUM 0.7 mg/dL (0.7-1.3); GLUCOSE SERUM 159 mg/dL (74-106); POTASSIUM SERUM 5.2 mmol/L (3.5-5.1); SODIUM SERUM 141 mmol/L (136-145); TOTAL PROTEIN, SERUM 6.1 g/dL (6.4-8.2)
[2019-12-21 07:39] LABS: C REACTIVE PROTEIN < 0.2 mg/dL (<=0.9)
--- NOTE | 2019-12-21 07:47 | NUR ---
PATIENT GIVEN BREAKFAST AT THIS TIME, NO DISTRESS OBSERVED OR REPORTED, WILL CONTINUE TO MONITOR
[2019-12-21 08:00] VITALS: BP 147/82
[2019-12-21 12:57] VITALS: BP 119/65
--- NOTE | 2019-12-21 14:20 | NUR ---
TITRATED PT TO 4L NC WITH HUMIDIFIER, SPO2 OF 95%. NO ACUTE RESP DISTRESS NOTED. PT DENIED ANY SOB. INFORMED PT TO USE CALL LIGHT IF SOB OCCURS. OXYHYDROGEN WELDER MADE AWARE. PT ON CONTINOUS PULSE OX. WILL CONT TO MONITOR
[2019-12-21 16:59] VITALS: BP 136/77
--- NOTE | 2019-12-21 19:05 | NUR ---
REPORT GIVEN TO LUNCHEONETTE MANAGER NURSE, CARE ENDORSED
--- NOTE | 2019-12-21 19:15 | NUR ---
CARE ASSUMED FROM OUTGOING RN. PT RESTING COMFORTABLY IN BED. NO ACUTE DISTRESS NOTED. EVEN AND UNLABORED RESPIRATIONS ON 4LNC, ON CONT. PULSE OX. MONITORING SATTING 93%, ON TELE# 7 READING 76 WITH DEPRESSED T WAVE. NO C/O PAIN OR SOB AT THIS TIME. CIM AT DOOR. CONTACT AND DROPLET ISOLATION IN PLACE. BED IN LOWEST POSITION. SIDE RAILS UPX2. CALL LIGHT WITHIN REACH. WILL CONTINUE TO MONITOR.
[2019-12-21 20:20] VITALS: BP 133/71
--- NOTE | 2019-12-21 21:05 | NUR ---
C/O ITCHING TO SKIN AROUND RAC IV SITE, REDNESS NOTED, TAPED REMOVED, ERYTHEMA, IRRITATION AND SKIN TEAR NOTED. DC'ED IV, CATHETER INTACT, PRESSURE APPLIED, NO BLEEDING NOTED. 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 PICTURES TAKEN. NEW IV STARTED TO RFA, GOOD BLOOD RETURN, FLUSHING WELL. PT TOLERATED WELL. NO C/O PAIN. WILL CONTINUE TO MONITOR.
--- NOTE | 2019-12-22 02:20 | NUR ---
PT RESTING COMFORTABLY IN PRONE POSITION WITH EYES CLOSED. EVEN AND UNLABORED RESPIRATIONS ON 4LNC SATTING 99%. ON TELE# 7 READING SB 52 WITH DEPRESSED TWAVE. CIM GUARD AT DOOR. CONTACT AND DROPLET ISOLATION IN PLACE. WILL CONTINUE TO MONITOR.
[2019-12-22 04:45] VITALS: BP 123/77
--- NOTE | 2019-12-22 06:13 | NUR ---
PT RESTED COMFORTABLY IN PRONE POSITION IN INTERVALS THROUGHOUT THE SHIFT. ALL NEEDS TENDED TO AND MET. ALL SCHEDULED MEDICATIONS GIVEN. EVEN AND UNLABORED RESPIRATIONS ON 4LNC, SATTING 98%, ON TELE #7 READING SB/SR WITH DEPRESSED TWAVE. CIM GUARD AT DOOR. CONTACT AND DROPLET ISOLATION IN PLACE. BED IN LOWEST POSITION. SIDE RAILS UPX2. CALL LIGHT WITHIN REACH. WILL ENDORSE TO ONCOMING SHIFT.
--- NOTE | 2019-12-22 07:00 | NUR ---
RECEIVED PT FROM NIGHT RN. PT RESTING IN BED WITH EYES CLOSED BUT EASILY AROUSABLE. AAOX4, CLEAR SPEECH. DENIES SAINI/DIZZINESS. RES E/U, NO RESPIRATORY DISTRESS NOTED. REPORTS SOB ON EXERTION. O2 SAT 96% ON 4 L NC. TELE MONITOR 7 SHOWING SR, DENIES CP/PRESSURE. ABDOMEN SOFT. VOIDS IN URINAL WITHOUT DIFFICULTY. NO GI/ COMPLAINT. REDNESS/SKIN TEAR ON RUE NOTED, FER. 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 OTHERWISE, NO C/O PAIN. IV SITE TO RFA SL, W NO ERYTHEMA, NO SWELLING NOTED. SECOND COVID RESULT STILL PENDING. GUARD AT THE DOOR. SAFETY PRECAUTIONS IN PLACE.
[2019-12-22 07:58] VITALS: BP 126/70
--- NOTE | 2019-12-22 12:30 | NUR ---
PT RESTING IN BED WITHOUT ACUTE DISTRESS. SEMI-FOWLERS POSITION. AAOX4. RES E/U, DENIES SOB. O2 SAT 96% ON 4 L/MIN VIA NC. ENCOURAGED PT TO AMBULATE TOLERATED. PT VERBALIZED UNDERSTANDING. NO SIGNIFICANT CHANGES NOTED. WILL CONTINUE TO MONITOR.
[2019-12-22 12:53] VITALS: BP 114/62
[2019-12-22 14:42] VITALS: BP 114/62
[2019-12-22 18:35] VITALS: BP 127/83
--- NOTE | 2019-12-22 18:43 | NUR ---
PT RESTING IN BED WATCHING TV. WITHOUT APPARENT DISTRESS. SEMI-FOWLERS POSITION. AAOX4. RES E/U, DENIES SOB. O2 SAT 99% ON 4L/MIN VIA NC. IV SITE TO RFA SL, CDI AND PATENT. NO SIGNIFICANT CHANGES NOTED. WILL ENDORSE CARE TO NEXT SHIFT.
--- NOTE | 2019-12-22 19:30 | NUR ---
REPORT RECEIVED FROM DAY SHIFT RN. PATIENT WAS SEEN RESTING COMFORTABLY IN BED. NO ACUTE DSITRESS NOTED. BREATHING E/U ON 4L NC. NO SOB OR RESP DISTRESS NOTED. DENIES CHEST PAIN. NO C/O PAIN AT THIS TIME. COMFORT AND SAFETY MEASURES IN PLACE. CONTINUOUS PULSE OX IN PLACE; SATING WELL AT 98%. BED IS LOCKED AND IN LOWEST POSITION. SIDE RAILS UP X2. CONTACT AND DROPLET PRECAUTIONS IN PLACE. CALL LIGHT IS WITHIN REACH. WILL CONTINUE TO MONITOR.
[2019-12-22 21:00] VITALS: BP 116/72
--- NOTE | 2019-12-23 01:16 | NUR ---
RESTING IN BED WITH EYES CLOSED. BREATHING E/U ON 4L NC. NO SOB OR RESP DISTRESS NOTED. NO S/S OF PAIN NOTED. CALL LIGHT IS WITHIN REACH. WILL CONTINUE TO MONITOR.
[2019-12-23 05:35] VITALS: BP 138/78
--- NOTE | 2019-12-23 06:20 | NUR ---
RESTED IN LONG INTERVALS THROUGHOUT THE NIGHT. NO ACUTE CHANGES NOTED. BREATHING E/U ON 4L NC. NO SOB OR RESP DISTRESS NOTED. NO C/O PAIN. ALL NEEDS MET. SAFETY MEASURES IN PLACE. CALL LIGHT IS WITHIN REACH. WILL ENDORSE CARE TO DAY SHIFT RN.
[2019-12-23 07:30] VITALS: BP 119/87
--- NOTE | 2019-12-23 07:30 | NUR ---
PATIENT IS A&OX4, FOLLOWS COMMANDS AND COOPERATES WELL. PATIENT DENIES CHEST PAIN AT THIS TIME. PERIPHERAL PULSES PALPABLE W/ NO SIGNS OF EDEMA. LUNG SOUNDS DIMNISHED BILATERALLY, ON 4L NC, O2 SAT 92%, DENIES SOB. NORMOACTIVE BSX4, ABD SOFT AND FLAT, DENIES ABD PAIN. VOIDS USING URINAL AND HAS BM ON BEDSIDE COMMODE. PATIENT AMBULATES INDEPENDENTLY WITH GUARD PRESENT, AND HAS MILD GENERALIZED WEAKNESS. RUE ERYTHEMA NOTED, OTHERWISE SKIN IS INTACT. DENIES PAIN OR DISCOMFORT AT THIS TIME. IV SITE IS CDI. ALL QUESTIONS AND CONCERNS HAVE BEEN ADRESSED. PLAN TOLD BY DRESS DRAPER NURSE IS TO AWAIT FOR COVID RESULTS AND IF IT IS NEGATIVE, TO RETURN BACK TO [facility].
[2019-12-23 13:18] VITALS: BP 129/78
[2019-12-23 17:28] VITALS: BP 115/78
--- NOTE | 2019-12-23 18:33 | NUR ---
PATIENT IS CALM AND COOPERATIVE AT THIS TIME. PATIENT REMAINS ON 4L NC, O2 SAT 97%, DENIES SOB. ALL QUESTIONS AND CONCERNS HAVE BEEN ADDRESED. WILL NOTIFY DR. LION THAT PATIENT'S COVID RESULT IS NEGATIVE FOR HIS SECOND TEST. WILL CONTINUE TO MONITOR PATIENT.
--- NOTE | 2019-12-23 18:51 | NUR ---
DR. AYAD WOLFF ISOLATION, NOTIFIED PATIENT. ALL QUESTIONS AND CONCERNS HAVE BEEN ADDRESSED. WILL CONTINUE TO MONITOR.
--- NOTE | 2019-12-23 19:30 | NUR ---
PT RECIEVED FROM DAY SHIFT NURSE. PT IS NO LONGER ISOLATION. PT IS A/O X4, CALM AND COOPERATIVE. PT IS ON TELE 7, SINUS AUGUSTUS. PT DENIES CP OR PALPITATIONS. PT BREATHING LABORED AND SHALLOW. TACHYPNEIC, PT DENIES SOB. LUNG SOUNDS DIMINSHED ON THE BASES. PT IS ON 3L NC, SAT 99%. PT HAS ACTIVE BOWEL SOUNDS. PT IS ABLE TO SELF VOID. MILD GENERALIZED WEAKNESS OBSERVED. PT IS ABLE TO AMBULATE. PT HAS RUE ERYTHEMA, SKIN TEAR. LUE ECCYMOSIS. PT DENIES PAIN OR DISCOMFORT. IV ON RFA, 22G, PATENT, CDI. CALL LIGHT WITHIN REACH. WILL CONTINUE TO MONITOR.
[2019-12-23 21:16] VITALS: BP 132/77
[2019-12-23 21:23] VITALS: BP 132/77
--- NOTE | 2019-12-23 23:23 | NUR ---
LOVENOX 80MG D/C BY PHARM. CALLED DR. ALMANZA IF THEY WANTED TO CONTINUE LOVENOX. DOCTOR STATED TO RENEW AND CONTINUE MEDICATION.
--- NOTE | 2019-12-24 00:10 | NUR ---
PT IS RESTING IN BED AT THIS TIME. PT DENIES PAIN OR DISCOMFORT. PT IS TACHYPNEIC, SP02 99%. NO S/S OF ACUTE DISTRESS AT THIS TIME. PT DENIES SOB OR TROUBLE BREATHING. PT IS SINUS AUGUSTUS, DENIES CP OR PALPITATIONS. CALL LIGHT WITHIN REACH. WILL CONTINUE TO MONITOR.
[2019-12-24 05:12] VITALS: BP 121/77
--- NOTE | 2019-12-24 05:53 | NUR ---
PT RESTING IN BED AT THIS TIME. PT DENIES SOB, SP02 96%. DENIES ACUTE RESPIRATORY DISTRESS AT THIS TIME. PT IS BREATHING E/U, ON 3L NC. PT DENIES CP OR PALPITATIONS. NO DISTRESS NOTED AT THIS TIME. ALL NEEDS AND CONCERNS HAVE BEEN MET THIS SHIFT. CALL LIGHT WITHIN REACH. WILL ENDORSE TO THE DAY SHIFT NURSE.
[2019-12-24 07:10] LABS: BASOPHIL % 0.3 % (0-2); PLATELET COUNT 169 x10^3mcL (130-400)
[2019-12-24 07:13] LABS: RED CELL DISTRIBUTION WIDTH 16.3 % (11.5-14.5)
[2019-12-24 07:22] LABS: CALCIUM 8.7 mg/dL (8.5-10.1); CARBON DIOXIDE 34.1 mmol/L (21-32); CHLORIDE SERUM 104 mmol/L (98-107); CREATININE SERUM 0.7 mg/dL (0.7-1.3); GLUCOSE SERUM 118 mg/dL (74-106); POTASSIUM SERUM 4.4 mmol/L (3.5-5.1); SODIUM SERUM 142 mmol/L (136-145)
--- NOTE | 2019-12-24 08:00 | NUR ---
PT RECEIVED FROM PM NURSE. PT IS RESTING COMFORTABLY AT THIS TIME. NO C/O PAIN, FACIAL DISTRESS NOTED. PT IS A/OX4. COOPERATIVE. TELE #27. NSR. LUNG SOUNDS CTA ON RA SATTING AT 98%. DENIES SOB. PALPABLE PULSES EVEN AND MODERATE. NO EDEMA NOTED AT THIS TIME. BOWEL SOUNDS NORMACTIVE X4. ABD IS SOFT AND NON DISTENDED. GENERALIZED WEAKNESS NOTED BUT AMBULATORY. PT HAS L FOOT AMPUTATION WITH CDI, NO ERYTHEMA NOTED. SKIN INTACT. IV ON L WRIST 20G. PATENT AND INTACT. CALL LIGHT WITHIN REACH. BED AT THE LOWEST POSITION. WILL CONTINUE TO MONITOR.
--- NOTE | 2019-12-24 08:00 | NUR ---
PT RECEIVED FROM PM NURSE. PT IS A/O X4. COOPERATIVE. NO C/O PAIN OR FACIAL DISTRESS NOTED. ON TELE #7. SINUS BRADYCARDIA. PT STATES THAT HE GETS SOB WHEN HE AMBULATES OR GET UP TO USE THE BSC. LUNG SOUNDS DIMINISHED AT THE BASES. CURRENTLY ON 3L NC. SATTING AT 95%. BOWEL SOUNDS ACTIVE X4 QUADRANT. ABD IS SOFT AND NON DISTENDED. PT VOIDS FREELY IN URINAL. GENERALIZED WEAKNESS BUT AMBULATORY. PT HAS RUE ERYTHEMA, SKIN TEAR, AND LUE ECCYMOSIS. IV ON RFA 22G. PATENT AND INTACT. NO SIGN OF INFILTRATION. CALL LIGHT WITHIN REACH. WILL CONTINUE TO MONITOR.
[2019-12-24 09:02] VITALS: BP 141/80
--- NOTE | 2019-12-24 10:50 | NUR ---
WEANED FROM 3L TO 2L NC. PT TOLERATED THE ADJUSTMENT WELL. CURRENTLY SATTING AT 95%. NO SOB, OR RESPIRATORY DISTRESS NOTED. INSTRUCTED PT TO USE THE CALL LIGHT FOR ANY SOB EPISODE. WILL CONTINUE TO MONITOR.
[2019-12-24 12:08] VITALS: BP 111/68
[2019-12-24 17:06] VITALS: BP 115/70
--- NOTE | 2019-12-24 18:49 | NUR ---
PT RESTING COMFORTABLY IN BED. WILL ENDORSE CARE TO PM NURSE.
--- NOTE | 2019-12-24 19:27 | NUR ---
PT RECIEVED AAO REG RESP NO SOB ON 2L N/C SAT 94% HOB,ABDO IS SOFT WITH ACTIVE BOWEL SOUNDS,PT HAS HL TO THE RFA WITH THE SITE PATENT AND INTACT,CALL LIGHT EASY REACHED AND WILL CONTINUE TO MONITOR.
[2019-12-24 20:53] VITALS: BP 123/70
--- NOTE | 2019-12-24 22:43 | NUR ---
PT SLEEPING SOUNDLY AT THIS TIME AND WILL CONTINUE TO MONITOR.
--- NOTE | 2019-12-24 23:29 | NUR ---
PT SLEEPING SOUNDLY AND WILL CONTINUE TO MONITOR.
[2019-12-25] VITALS (7 sets, daily range): BP systolic 111–144; BP diastolic 65–82
--- NOTE | 2019-12-25 06:24 | NUR ---
PT HAD A RESTING NIGHT NO CHNAGE AT THIS TIME AND WILL CONTINUE TO MONITOR.
--- NOTE | 2019-12-25 07:15 | NUR ---
SEEN IN BED AAOX4. NO RESP DISTRESS AT THIS TIME. ON O2 2LPM N/C, O2SAT RANGE FROM 88%-95%, SOB ON ACTIVITY. ON TELE# 7 SR/SB WITH DEPRESSED T, DENIES CHEST PAIN OR CHEST PRESSURE AT THIS TIME. GEN BODY WEAKNESS, STATED ABLE TO AMBULATE TO BSC AT BEDSIDE. S/L TO RFA INTACT AND PATENT. CALL LIGHT PLACED WITHIN EASY REACH, SIDERAILS UP X2. CORRECTIONAL GUARDS AT BEDSIDE.
--- NOTE | 2019-12-25 13:00 | NUR ---
ENCORAGED TO USE I.S. 10X PER HOUR WHEN AWAKE AND PRONING POSITION WHEH LAYING IN BED. PATIENT VERBALIZED UNDERSTANDING.
--- NOTE | 2019-12-25 13:43 | NUR ---
Follow-up Nutrition Assessment: 230T/B DIONNE SHERMAN 74M LR FU Dx: PNA, COVID r/o PMHx: Afib, HTN Labs: (12/24) Glu 118H, BUN 20H, AST 95H Meds: Cephulac, Lovenox, Pepcid, Solu-medrol Diet: NA2G PO Intake: 50-100% x 10 meals with average PO intake of 92%, ONS intake also noted Weights: (12/24)70.335kg *no significant changes Edema: none noted Last BM: 12/24 per RN Skin: Erythema and skin tear to RUE, ecchymosis to LUE [place]: [address] (12/17) pt remain on high flow O2, supportive care, proning. Pt remained in isolation. Per nutrition flowsheet, pt currently has average 85% PO intake. It approximately provided 1945kcal and 95g protein meeting 100% of estimated kcal and protein needs. RD Note (12/24): Per progress note (12/23) pt remain on O2 and still desat when ambulate. Per pt's primary RN, pt had BM today and no GI distress was observed. RN also reported that pt had good appetite and finished his ONS today. Pt's PO intake remained good per flowsheet average, and it is meeting 100% of estimated energy and protein needs. Estimated Nutritional Needs Based on adjusted body weight (60kg) Energy: 2643-9517 kcal/day (30-35 kcal/kg for viral infection) Protein: 90-120 g/day (1.5-2 g/kg for viral infection) Fluid: 9104-2002 mL/day (1 mL/kcal) or per MD d/t Pulmonary edema Nutrition Diagnosis: (ongoing) 1. Increased energy and protein needs r/t hypermetabolic state a/e/b pt has viral infection. Intervention: 1. Recommend continue NA2G diet 2. Recommend continue Ensure BID for additional kcal and protein. Monitor/Evaluate: Goal: Have pt meet at least 75% of estimated needs (met, ongoing goal) Monitor: PO intake, Labs, GI function F/U in 7 days as low risk 12/31
--- NOTE | 2019-12-25 13:43 | NUR ---
1. Recommend continue NA2G diet 2. Recommend continue Ensure BID for additional kcal and protein.
--- NOTE | 2019-12-25 18:17 | NUR ---
SOB AND DESATTING ON ACTIVITY. PATIENT ABLED TO AMBULATE INSIDE THE ROOM WITH O2 2LPM N/C ON. O2SAT RANGE BETWEEN 87-95% ON 2LPM N/C. HAD BM TODAY. STATED VOIDS FREELY. S/L TO RFA INTACT AND PATENT.
--- NOTE | 2019-12-25 19:16 | NUR ---
PT RECEIVED FROM AM NURSE. PT A/O X4, ABLE TO MAKE NEEDS KNOWN. TELE #7, PT DENIES HAVING ANY CP/PRESSURE. PULSES PALPABLE, NO EDEMA PRESENT. LUNG SOUNDS DIM TO PARKER BASES, BREATHING IS EVEN AND UNLABORED ON 2L NC, PT REPORTS SOB UPON EXERTION, NO RESP DISTRESS NOTED. ABD SOFT AND NONDISTENDED, DENIES N/V. VOIDS FREELY, URINAL AT BEDSIDE. MILD GENERALIZED WEAKNESS, AMBULATORY W/ STEADY GAIT. ERYTHEMA AND SKIN TEARS NOTED TO FER MONTANO; ECCHYMOSIS NOTED TO FER ANDRADE. PT DENIES HAVING ANY PAIN AT THIS TIME. SL TO RFA, PATENT AND INTACT. GUARDS NEARBY. NO ACUTE DISTRESS NOTED. BED IN LOWEST SETTING, SIDE RAILS UP X2, CALL LIGHT WITHIN REACH. WILL CONT TO MONITOR.
--- NOTE | 2019-12-26 01:30 | NUR ---
PT RESTING IN BED W/ EYES CLOSED BUT IS EASILY AROUSABLE. BREATHING IS EVEN AND UNLABORED ON 2L NC, NO RESP DISTRESS. PT DENIES HAVING ANY PAIN AT THIS TIME. IV INTACT. NO ACUTE DISTRESS NOTED. GUARDS NEARBY. CALL LIGHT WITHIN REACH. WILL CONT TO MONITOR.
[2019-12-26 05:47] VITALS: BP 131/85
--- NOTE | 2019-12-26 06:50 | NUR ---
PT SLEPT WELL THROUGHOUT THE EVENING. BREATHING IS EVEN AND UNLABORED ON 2L NC, NO RESP DISTRESS NOTED. PT DENIES HAVING ANY PAIN AT THIS TIME. IV TO RFA INTACT. NO ACUTE CHANGES ENCOUNTERED DURING SHIFT. ALL NEEDS MET AND ANTICIPATED. GUARDS NEARBY. CALL LIGHT WITHIN REACH. WILL ENDORSE CARE TO AM NURSE.
[2019-12-26 06:56] VITALS: BP 132/82
--- NOTE | 2019-12-26 07:21 | NUR ---
RECEIVED PATIENT. IN BED, AAOX4. REMAINS ON 2L NC. NO ACUTE RESP DISTRESS NOTED. NO C/O PAIN. IV INTACT AND PATENT. SAFETY PREC IN PLACE. CALL LIGHT WITHIN REACH. WILL CONTINUE TO MONITOR.
[2019-12-26 09:01] VITALS: BP 133/76
--- NOTE | 2019-12-26 10:35 | NUR ---
PATIENT STABLE. NO ACUTE CHANGES. REMAINS ON 2L NC. WILL CONTINUE TO MONITOR. GUARDS OUTSIDE ROOM.
--- NOTE | 2019-12-26 13:30 | NUR ---
PATIENT STABLE. NO ACUTE CHANGES. PER CHARGE NURSE, PATIENT MAY BE DISCHARGE TODAY. AWAITING FOR DR. ALMANZA TO PUT IN DISCHARGE ORDER. PATIENT AND GUARD MADE AWARE. PATIENT NEED OXYGEN FOR DISCHARGE. PATIENT CURRENTLY ON 2L NC AND EPISODE OF DESATURATION WHEN AMBULATING. WILL CONTINUE TO MONITOR.
[2019-12-26 13:41] VITALS: BP 132/67
[2019-12-26 13:51] VITALS: BP 132/67
--- NOTE | 2019-12-26 14:20 | NUR ---
DISCHARGE INSTRUCTIONS GIVEN TO PATIENT. PATIENT VERBALIZED UNDERSTANDING. ALL QUESTIONS AND CONCERNS ADDRESSED. DISCHARGE PAPERS SIGNED BY PATIENT, AND ADDITIONAL DISCHARGE PAPERS GIVEN TO GUARD. EXPLAINED TO GUARD THAT PER CASE MANAGEMENT, [facility] WILL HAVE OXYGEN TANK FOR PATIENT. GUARDS VERBALIZED UNDERSTANDING. D/C IV TO RFA, TOLERATED WELL. CATHETER INTACT. APPLIED PRESSURE, GAUZE AND TAPE IN PLACE. ID BANDS REMOVED. UNDERWEAR PROVIDED REQUESTED. TELE MONITOR CLEANED AND RETURNED TO TELE STATION. REQUESTED GUARDS TO TAKE OFF CUFF/CHAIN SO PATIENT CAN GET DRESSED. ALL NEEDS MET. WAITING FOR [facility] TO ARRIVE AT 1500 PER CASE MANAGEMENT.
--- NOTE | 2019-12-26 16:15 | NUR ---
PATIENT EPISODE OF DESATURATION TO 87 PRIOR TO DISCHARGE AFTER AMBULATING AND CHANGING OF CLOTHES INDEPENDENTLY. DR. ALMANZA MADE AWARE. DR. ALMANZA MADE AWARE REGARDING SOB WHEN AMBULATING WITH PHYSICAL THERAPIST AND DESATURATES WHEN AMBULATING BUT SATURATION GOES UP ABOVE 90S WHEN BACK AT REST. DR. ALMANZA MADE AWARE REGARDING PATIENT MAY BE FEELING ANXIOUS. PER DR. ALMANZA, PATIENT IS STABLE TO LEAVE WITH 2 TO 3 LITERS OF OXYGEN LONG SATURATION IS ABOVE 90'S. PATIENT SATURATION AT THIS TIME IS 93% ON 3L NC. PER DR. ALMANZA, OK TO PROCEED WITH DISCHARGE. PATIENT MADE AWARE AND VERBALIZED UNDERSTANDING. [facility] AT BEDSIDE. GUARDMily MADE AWARE THAT PATIENT IS NOT ABLE TO DO ACTIVITY FOR LONG TIME PERIODS AND PATIENT MUST REMAIN ON OXYGEN TO KEEP O2 SATURATION UP. TANMAY VERBALIZED UNDERSTANDING.
--- NOTE | 2019-12-26 16:16 | NUR ---
DR. ALMANZA MADE AWARE REGARDING PATIENT STILL FEELING CONGESTED. PER DR. ALMANZA, OK TO PROCEED DISCHARGE AT THIS TIME.
--- NOTE | 2019-12-26 16:25 | NUR ---
ASSISTED PATIENT WITH WHEELCHAIR TRANSFER. TOLERATED WELL. PATIENT ON 3L OXYGEN VIA NASAL CANNULA. BLANKET PROVIDED. PERSONAL BELONGINGS SENT WITH PATIENT. ACCOMPANIED TO ER EXIT VIA WHEELCHAIR WITH RN, MOLD STRIPPER, AND GUARDS. ASSISTED PATIENT WITH TRANSFER TO [facility]. ALL NEEDS MET.
== END 2019-12-26 16:25 | disposition other institution (70) | DRG 177 ==
LOC: ED 15:05 → DU 16:35
PROVIDERS: Emergency Medicine; Internal Medicine; Internal Medicine Critical Care Medicine; ADMIT Internal Medicine; ATTEND Internal Medicine
DX: U07.1 COVID-19 (principal); J96.01 Acute respiratory failure with hypoxia; J18.9 Pneumonia, unspecified organism; D72.819 Decreased white blood cell count, unspecified; E66.9 Obesity, unspecified; I48.91 Unspecified atrial fibrillation; Z68.27 Body mass index [BMI] 27.0-27.9, adult; Z79.899 Other long term (current) drug therapy
CPT/HCPCS: 82962; 83880; 85378; 87804; 94150; 97116-GP; G0378; J0456; J0696; J1650; J2543; J2920; J3490; J3535; J7030; J7040; J7050; J7060; Q0092; U0003-CS

== ENCOUNTER 2020-01-02 11:04 | Emergency (ER) | payer OTHER, SELFPAY ==
[~2020-01-02] VITALS: Ht 162.6 cm; Wt 63.5 kg
[~2020-01-02 11:04] MED LIST: ASPIRIN CHILDRE81 MG PO; ATORVASTATIN CA40 M1 PO
[2020-01-02 11:14] VITALS: Ht 162.6 cm; Wt 63.5 kg
[2020-01-02 12:04] LABS: microscopic required? NO
[2020-01-02 12:36] LABS: BASOPHIL % 0.6 % (0-2); PLATELET COUNT 197 x10^3mcL (130-400); RED CELL DISTRIBUTION WIDTH 16.7 % (11.5-14.5)
[2020-01-02 12:51] LABS: CALCIUM 8.4 mg/dL (8.5-10.1); CARBON DIOXIDE 30.2 mmol/L (21-32); CHLORIDE SERUM 106 mmol/L (98-107); CREATININE SERUM 0.7 mg/dL (0.7-1.3); GLUCOSE SERUM 124 mg/dL (74-106); POTASSIUM SERUM 3.8 mmol/L (3.5-5.1); SODIUM SERUM 141 mmol/L (136-145)
[2020-01-02 12:56] LABS: ALBUMIN 2.7 g/dL (3.4-5.0); ALKALINE PHOSPHATASE 91 U/L (46-116); ALT/SGPT 46 U/L (16-63); AST/SGOT 21 U/L (15-37); BILIRUBIN TOTAL 0.54 mg/dL (0.20-1.00); TOTAL PROTEIN, SERUM 6.1 g/dL (6.4-8.2)
[2020-01-02 13:03] LABS: urine erythrocyte NEGATIVE (NEGATIVE)
[2020-01-02 14:07] VITALS: BP 116/73
== END 2020-01-02 14:07 | disposition home or self-care (01) ==
LOC: ED 11:04
PROVIDERS: Emergency Medicine
DX: R09.02 Hypoxemia (principal); R51 Headache; I10 Essential (primary) hypertension; E78.00 Pure hypercholesterolemia, unspecified; I48.91 Unspecified atrial fibrillation; Z20.828 Contact with and (suspected) exposure to other viral communicable diseases
CPT/HCPCS: 36600; 83880; 87804; Q0092; U0003-CS